=== PATIENT | female | born 1940 | race Caucasian/White ===

== ENCOUNTER 2017-08-26 20:27 | Emergency (ER) | payer OTHER ==
[2017-08-26] MEDS ORDERED: ONDANSETRON 4 MG (ODT) TAB ONE (21:12)
[2017-08-26] MEDS ORDERED: MORPHINE 4 MG/ML SYR ONE ×2 (21:12→23:13)
--- NOTE | 2017-08-26 21:30 | RAD REPORT ---
EXAM DESCRIPTION: CT - CTHCSPWOC - 08/26/2017 9:19 pm CLINICAL HISTORY: Trauma, head and neck injury. COMPARISON: 06/13/2016, 12/12/2014 TECHNIQUE: Axial 5 mm thick images of the head were obtained. Axial 2 mm thick images of the cervical spine were obtained with sagittal and coronal reconstruction images generated and reviewed. All CT scans are performed using dose optimization technique as appropriate and may include automated exposure control or mA/KV adjustment according to patient size. FINDINGS: CT HEAD WITHOUT CONTRAST: No acute hemorrhage, hydrocephalus or extra-axial collection is identified.No areas of brain edema or midline shift. The paranasal sinuses and mastoids are clear.The calvarium is intact. CT CERVICAL SPINE WITHOUT CONTRAST: No fracture or subluxation.No prevertebral soft tissues swelling is identified. IMPRESSION: No acute intracranial or cervical spine findings.
[2017-08-26 21:47] LABS: Absolute Lymphocytes (CBC) 4.4 K/uL (0.7-4.9); Absolute Monocytes 0.8 K/uL (0.1-1.3); Absolute Neutrophil 5.8 K/uL (1.8-8.0); Basophils % 0.7 % (0-1.3); Eosinophils % 1.2 % (0-4.4); Hematocrit 37.9 % (36.0-45.0); Lymphocytes % 39.6 % (15.3-44.8); MCH 31.1 pg (27.0-35.0); MCV 91.8 fL (80-100); MPV 10.2 fL (7.6-11.3); RBC Red Blood Cell Count 4.12 M/uL (3.86-4.86)
--- NOTE | 2017-08-26 22:27 | RAD REPORT ---
EXAM DESCRIPTION: RAD - Chest Single View - 08/26/2017 10:22 pm CLINICAL HISTORY: Trauma, chest pain COMPARISON: 12/12/2014 FINDINGS: Portable technique limits examination quality. The lungs are grossly clear. The heart is upper limit of normal in size. No displaced fractures.Mild upper thoracic dextroscoliosis. IMPRESSION: No acute intrathoracic process suspected.
--- NOTE | 2017-08-26 22:29 | RAD REPORT ---
EXAM DESCRIPTION: RAD - Elbow Right 3 View - 08/26/2017 10:22 pm CLINICAL HISTORY: Fall, pain COMPARISON: None. FINDINGS: Moderately angulated fracture of the proximal ulna is seen with mild comminution. Fracture of the proximal radial neck also seen with little displacement. Moderate surrounding soft tissue swe lling. No dislocation seen.
--- NOTE | 2017-08-26 22:31 | RAD REPORT ---
EXAM DESCRIPTION: RAD - Elbow Left 2 View - 08/26/2017 10:23 pm CLINICAL HISTORY: Fall, elbow pain. COMPARISON: None. FINDINGS: Posterior elbow dislocation is seen with angulated fracture of the radial neck. Moderate s urrounding soft tissue swelling.
[2017-08-26 22:36] LABS: Potassium 3.6 mEq/L (3.6-5.0)
[2017-08-26 22:39] LABS: Albumin 4.4 g/dL (3.2-5.5); Bilirubin Total 0.3 mg/dL (0.3-1.2); Protein, Total 7.4 g/dL (6.0-8.3)
--- NOTE | 2017-08-27 00:46 | ER ---
Nurse's Notes [facility] Name: Nishi Ariza Age: 76 yrs Sex: Female : 1940 Arrival Date: 08/26/2017 Time: 20:35 Bed 30 Private MD: Diagnosis: Fracture dislocation of left elbow. Fracture of radial head of right elbow. Nose laceration. Presentation: 08/26 20:30 Presenting complaint: Patient states: that she was moving bags of soil and tripped over fc the water hose. Pt has laceration to bridge of nose, abrasion to nose and chin, bruising to both knees and elbows along with swelling to right elbow. No LOC, numbness or tingling. Care prior to arrival: Bleeding of injury controlled. Mechanism of Injury: Fall from standing position. Trauma event details: Injury occurred in the [facility], Injury occurred: at home. Injury occurred: August 26, 2017 Injury occurred at: 20:00. 20:30 Acuity: OMAR 3 fc 20:30 Method Of Arrival: EMS: [facility] 20:52 Transition of care: patient was not received from another setting of care. Onset of fc symptoms was August 26, 2017 at 20:00. Initial Sepsis Screen: Does the patient meet any 2 criteria? No. Patient's initial sepsis screen is negative. Does the patient have a suspected source of infection? No. Patient's initial sepsis screen is negative. Triage Assessment: 20:30 General: Appears uncomfortable, Behavior is calm, cooperative, appropriate for age. fc Pain: Complains of pain in right arm, left arm, right leg and left leg Pain currently is 10 out of 10 on a pain scale. Quality of pain is described as aching, throbbing, Pain began 30 min ago. EENT: No deficits noted. Neuro: Level of Consciousness is awake, alert, obeys commands, Oriented to person, place, time, situation. Cardiovascular: No deficits noted. Respiratory: No deficits noted. GI: No deficits noted. : No deficits noted. Derm: Skin is pink, warm \T\ dry. Bruising that is bright red, on both elbows. Musculoskeletal: Circulation, motion, and sensation intact. Capillary refill < 3 seconds, Range of motion: intact in all extremities, Swelling present in right elbow Reports pain in right arm, left arm, right leg and left leg. Injury Description: Abrasion sustained to nose and chin is bleeding, was sustained 30-60 minutes ago. Laceration sustained to nose is clean, 0.5 to 2.5 cm long, bleeding profusely, was sustained 30-60 minutes ago. a small amount of bleeding noted at this time. A dressing was applied. 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 - Social history:: Smoking status: Patient/guardian denies using tobacco. Screenin:30 Abuse screen: Denies threats or abuse. Tuberculosis screening: No symptoms or risk fc factors identified. 20:54 Nutritional screening: No deficits noted. Fall Risk Fall in past 12 months (25 points). fc No secondary diagnosis (0 pts). No IV (0 pts). Ambulatory Aid- None/Bed Rest/Nurse Assist (0 pts). Gait- Normal/Bed Rest/Wheelchair (0 pts) Mental Status- Overestimates/Forgets Limitations (15 pts.). Total Estrada Fall Scale indicates Low Risk Score (25-44 pts). Fall prevention measures have been instituted. Side Rails Up X 2 Placed close to Nursing Station Frequent Obs/Assesments occuring Family Present and informed to notify staff if they need to leave bedside As available Patient and Family Educated on Fall Prevention Program and strategies. Assessment: 21:00 General: Appears in no apparent distress. uncomfortable, well groomed, well developed, kr2 well nourished, Behavior is calm, cooperative. Pain: Complains of pain in left elbow and right elbow Pain radiates to right arm and left arm Pain currently is 10 out of 10 on a pain scale. Quality of pain is described as aching, sharp, tender, Pain began suddenly, Is continuous, Alleviated by rest, Aggravated by repositioning, Noted to be grimacing. Neuro: Level of Consciousness is awake, alert, obeys commands, Oriented to person, place, time, situation, Campus [facility] are equal bilaterally Moves all extremities. Intact. Cardiovascular: Capillary refill < 3 seconds in bilateral fingers Patient's skin is warm and dry. Respiratory: Airway is patent Respiratory effort is even, unlabored, Respiratory pattern is regular, symmetrical. GI: Abdomen is flat, non-distended. : No signs and/or symptoms were reported regarding the genitourinary system. EENT: Nares are clear bilaterally Oral mucosa is moist. Derm: Skin is fragile, Skin is pink, warm \T\ dry. Wound noted nose and chin Wound is laceration on nose and abrasion on chin. Musculoskeletal: Circulation, motion, and sensation intact. Range of motion: limited in left elbow and right elbow. Injury Description:. 22:00 Reassessment: Patient appears in no apparent distress at this time. Patient and/or kr2 family updated on plan of care and expected duration. Pain level reassessed. Patient is alert, oriented x 3, equal unlabored respirations, skin warm/dry/pink. 22:08 Reassessment: Mica Builder from lab in room to redraw Chem labs. kr2 23:00 Reassessment: Patient appears in no apparent distress at this time. Patient and/or kr2 family updated on plan of care and expected duration. Pain level reassessed. Patient is alert, oriented x 3, equal unlabored respirations, skin warm/dry/pink. Pain decreased. 08/27 00:37 Reassessment: Patient appears in no apparent distress at this time. Patient and/or kr2 family updated on plan of care and expected duration. Pain level reassessed. Patient is alert, oriented x 3, equal unlabored respirations, skin warm/dry/pink. Patient states feeling better. Patient states symptoms have improved. 01:22 Reassessment: Patient appears in no apparent distress at this time. Patient and/or kr2 family updated on plan of care and expected duration. Pain level reassessed. Patient is alert, oriented x 3, equal unlabored respirations, skin warm/dry/pink. laceration to nose cleaned with saline, no bleeding at this time. Report called to Liss at receiving facility. Transfer form completed Patient states feeling better. Vital Signs: 08/26 20:30 BP 172 / 83; Pulse 83; Resp 18; Temp 98.1(O); Pulse Ox 99% on R/A; Weight 68.04 kg (R); fc Height 5 ft. 2 in. (157.48 cm) (R); Pain 10/10; 22:00 BP 172 / 79; Pulse 79; Resp 16; Pulse Ox 98% on R/A; kr2 23:00 BP 165 / 70; Pulse 83; Resp 15; Pulse Ox 100% on R/A; kr2 05 00:34 BP 156 / 71; Pulse 83; Resp 16; Pulse Ox 95% on R/A; kr2 01:30 BP 154 / 73; Pulse 81; Resp 15; Pulse Ox 96% on R/A; lk1 08/26 20:30 Body Mass Index 27.44 (68.04 kg, 157.48 cm) fc [place] Coma Score: 08/26 20:30 Eye Response: spontaneous(4). Verbal Response: oriented(5). Motor Response: obeys fc commands(6). Total: 15. Trauma Score (Adult): 20:30 Eye Response: spontaneous(1); Verbal Response: oriented(1); Motor Response: obeys fc commands(2); Systolic BP: > 89 mm Hg(4); Respiratory Rate: 10 to 29 per min(4); [place] Score: 15; Trauma Score: 12 ED Course: 20:30 Patient has correct armband on for positive identification. Bed in low position. Call fc light in reach. Side rails up X2. 20:30 Arm band placed on. kr2 20:30 Patient maintains SpO2 saturation greater than 95% on room air. fc 20:35 Patient arrived in ED. em1 20:35 Thermoregulation: warm blanket given to patient. fc 20:48 Kamron Mata MD is Attending Physician. ps1 20:50 Triage completed. fc 20:54 No provider procedures requiring assistance completed. fc 20:57 Nani Mcallister, CHRISTINA is Primary Nurse. kr2 21:[address] jg1 21:16 Inserted saline lock: 24 gauge in right wrist, using aseptic technique. kr2 21:19 CT Head C Spine In Process Unspecified. EDMS 21:20 CT completed. Patient tolerated procedure well. Patient moved back from CT. nj 22:14 X-ray completed. Portable x-ray completed in exam room. Patient tolerated procedure bb2 poorly. 22:17 CXR XRAY In Process Unspecified. EDMS 22:17 Elbow Right 3 View XRAY In Process Unspecified. EDMS 22:22 Elbow Left 2 View In Process Unspecified. EDMS 08/27 00:16 Sling applied to left arm. lk1 00:39 X-ray completed. Portable x-ray completed in exam room. Patient tolerated procedure kw well. 00:40 Elbow Left 3 View XRAY In Process Unspecified. EDMS 01:24 Patient transferred, IV remains in place. kr2 Administered Medications: 08/26 21:15 Drug: morphine 4 mg Route: IVP; Site: right wrist; kr2 22:16 Follow up: Response: No adverse reaction; Pain is decreased kr2 22:04 Not Given (medication unavailable): Zofran 4 mg IVP once; over 2 minutes kr2 23:15 Drug: morphine 4 mg Route: IVP; Site: right wrist; kr2 08/27 00:20 Follow up: Response: No adverse reaction; Pain is decreased kr2 08/26 23:15 Drug: Zofran 4 mg Route: IVP; Site: right wrist; kr2 08/27 00:20 Follow up: Response: No adverse reaction kr2 Outcome: 00:46 ER care complete, transfer ordered by . ps1 01:23 Transferred to [facility], Transfer form completed. kr2 01:23 Condition: stable 01:23 Instructed on the need for transfer, Demonstrated understanding of instructions. 01:53 Patient left the ED. lk1 Signatures: Dispatcher [employer] Merced Martinez Felicia, RN RN fc Martinez, Eric em1 Adeline Villanueva Leah RN RN lk1 Silvino Alvarez Karey, RN RN kr2 Kamron Mata MD MD ps1 Jyothi Arreola2 Corrections: (The following items were deleted from the chart) 08/26 22:21 22:17 In radiology for Elbow Left 3 View+RAD.RAD.BRZ. EDMS EDMS
--- NOTE | 2017-08-27 00:47 | EDPHYS ---
Physician Documentation [facility] Name: Nishi Ariza Age: 76 yrs Sex: Female : 1940 Arrival Date: 08/26/2017 Time: 20:35 Bed 30 Private MD: ED Physician Kamron Mata HPI: 08/27 00:30 This 76 yrs old Female presents to ER via EMS with complaints of Fall Injury. ps1 00:30 Details of fall: The patient fell from an upright position, over a hose. Onset: The ps1 symptoms/episode began/occurred just prior to arrival. Associated injuries: The patient sustained both elbows, deformity/subluxation of left. Nasal bone laceration. Knee contusion. . No LOC. Not on thinners. Hx of aneurysm, treated at [facility]. . Historical: - Allergies: 08/26 20:54 BARBITURATES; fc 20:54 Codeine; fc 20:54 Iodinated Contrast Media - IV Dye; fc - Home Meds: 20:54 Vitamin B-12 Oral [Active]; Vitamin D Oral [Active]; fc - PMHx: 20:54 Colitis; hematoma on brain; fc - PSHx: 20:54 Brain surgery; Hysterectomy; Cholecystectomy; right wrist surg; fc - Immunization history: Last tetanus immunization: unknown. - Social history:: Smoking status: Patient/guardian denies using tobacco. ROS: 08/27 00:30 Constitutional: Negative for fever, chills, and weight loss, Eyes: Negative for injury, ps1 pain, redness, and discharge. Cardiovascular: Negative for chest pain, palpitations, and edema, Respiratory: Negative for shortness of breath, cough, wheezing, and pleuritic chest pain, Abdomen/GI: Negative for abdominal pain, nausea, vomiting, diarrhea, and constipation, Back: Negative for injury and pain, : Negative for injury, bleeding, discharge, and swelling. Neuro: Negative for headache, weakness, numbness, tingling, and seizure, Psych: Negative for depression, anxiety, suicide ideation, homicidal ideation, and hallucinations. ENT: Positive for laceration to nose. MS/extremity: Positive for injury or acute deformity, contusion, ecchymosis, pain, tenderness, of the left elbow, and right elbow. Exam: 00:30 Constitutional: This is a well developed, well nourished patient who is awake, alert, ps1 and in no acute distress. Eyes: Pupils equal round and reactive to light, extra-ocular motions intact. Lids and lashes normal. Conjunctiva and sclera are non-icteric and not injected. Chest/axilla: Normal chest wall appearance and motion. Nontender with no deformity. No lesions are appreciated. Cardiovascular: Regular rate and rhythm. No gallops, murmurs, or rubs. Normal PMI, no JVD. No pulse deficits. Respiratory: Lungs have equal breath sounds bilaterally, clear to auscultation and percussion. No rales, rhonchi or wheezes noted. No increased work of breathing, no retractions or nasal flaring. 00:30 Abdomen/GI: Soft, non-tender, with normal bowel sounds. No distension or tympany. No guarding or rebound. No evidence of tenderness throughout. 00:30 MS/ Extremity: Pulses equal, no cyanosis. Neurovascular intact. Full, normal range of motion. Neuro: Awake and alert, GCS 15, oriented to person, place, time, and situation. Cranial nerves II-XII grossly intact. Sensory grossly intact. 00:30 Head/face: Noted is a laceration(s), that is superficial, 2 cm(s), of the nose. 00:30 Musculoskeletal/extremity: Extremities: grossly normal except: noted in the left elbow: deformity, pain, noted in the right elbow: decreased ROM, deformity, noted in the left leg: contusion, Noted in left leg: contusion, ROM: limited active range of motion due to pain, in the right elbow and left elbow, Circulation is intact in all extremities. Pulses: are normal with no appreciated deficits, Weight bearing: able to fully bear weight, Tendon exam: specific tendon testing normal through active and passive range of motion Vital Signs: 08/26 20:30 BP 172 / 83; Pulse 83; Resp 18; Temp 98.1(O); Pulse Ox 99% on R/A; Weight 68.04 kg (R); fc Height 5 ft. 2 in. (157.48 cm) (R); Pain 10/10; 22:00 BP 172 / 79; Pulse 79; Resp 16; Pulse Ox 98% on R/A; kr2 23:00 BP 165 / 70; Pulse 83; Resp 15; Pulse Ox 100% on R/A; kr2 08/27 00:34 BP 156 / 71; Pulse 83; Resp 16; Pulse Ox 95% on R/A; kr2 01:30 BP 154 / 73; Pulse 81; Resp 15; Pulse Ox 96% on R/A; lk1 08/26 20:30 Body Mass Index 27.44 (68.04 kg, 157.48 cm) fc [place] Coma Score: 08/26 20:30 Eye Response: spontaneous(4). Verbal Response: oriented(5). Motor Response: obeys fc commands(6). Total: 15. Trauma Score (Adult): 20:30 Eye Response: spontaneous(1); Verbal Response: oriented(1); Motor Response: obeys fc commands(2); Systolic BP: > 89 mm Hg(4); Respiratory Rate: 10 to 29 per min(4); Sg Score: 15; Trauma Score: 12 Procedures: 08/27 00:30 Reduction: of the left elbow, using traction, Immobilized with shoulder immobilizer. ps1 Patient tolerated well. Post reduction film - reveals improved alignment. MDM: 08/26 20:59 Patient medically screened. ps1 08/27 00:30 Data reviewed: vital signs, nurses notes, radiologic studies, plain films. Special ps1 discussion: patient with multiple fractures to bilateral arms. Reduction of posterior dislocation. Will transfer to [facility] for orthopedic evaluation. . 08/26 20:55 Order name: CBC with Diff; Complete Time: 23:11 ps1 08/26 20:55 Order name: CMP; Complete Time: 23:11 [facility] 08/26 20:55 Order name: CT Head C Spine; Complete Time: 23:11 [facility] 08/26 20:55 Order name: CXR XRAY; Complete Time: 23:11 ps1 08/26 20:55 Order name: Elbow Right 3 View XRAY; Complete Time: 23:11 ps1 08/26 22:21 Order name: Elbow Left 2 View; Complete Time: 23:11 [facility] 08/27 00:11 Order name: Elbow Left 3 View XRAY ps1 Administered Medications: 08/26 21:15 Drug: morphine 4 mg Route: IVP; Site: right wrist; kr2 22:16 Follow up: Response: No adverse reaction; Pain is decreased kr2 22:04 Not Given (medication unavailable): Zofran 4 mg IVP once; over 2 minutes kr2 23:15 Drug: morphine 4 mg Route: IVP; Site: right wrist; kr2 08/27 00:20 Follow up: Response: No adverse reaction; Pain is decreased kr2 08/26 23:15 Drug: Zofran 4 mg Route: IVP; Site: right wrist; kr2 08/27 00:20 Follow up: Response: No adverse reaction kr2 Disposition: 08/27/17 00:46 Transfer ordered to [facility]. Diagnosis is Fracture dislocation of left elbow. Fracture of radial head of right elbow. Nose laceration. . - Reason for transfer: Higher level of care. - Accepting physician is [facility]- Trauma. - Condition is Stable. - Problem is new. - Symptoms have improved. Signatures: Dispatcher [employer] EDMS Mj De Paz MD MD cha Chretien, Felicia RN RN fc Ana Lilia Brown RN RN lk1 Nani Mcallister RN RN kr2 Kamron Mata MD MD ps1 Corrections: (The following items were deleted from the chart) 08/26 22:21 20:55 Elbow Left 3 View+RAD.RAD.BRZ ordered. EDMS EDMS
--- NOTE | 2017-08-27 08:22 | RAD REPORT ---
EXAM DESCRIPTION: RAD - Elbow Left 3 View - 08/27/2017 12:56 am CLINICAL HISTORY: Post reduction COMPARISON: Prereduction radiograph FINDINGS: Posterior elbow dislocation has been reduced. Fracture of the radial head and radial neck with angulation again seen. Moderate soft tissue swelling is present.
== END 2017-08-27 01:53 | disposition short-term general hospital (02) ==
LOC: ER 20:27
PROC: 0RSMXZZ Reposition Left Elbow Joint, External Approach (ICD-10-PCS; principal; 2017-08-26)
DX: S42.402A Unspecified fracture of lower end of left humerus, initial encounter for closed fracture (principal); S52.121A Displaced fracture of head of right radius, initial encounter for closed fracture; W18.09XA Striking against other object with subsequent fall, initial encounter; Y93.9 Activity, unspecified; Y92.9 Unspecified place or not applicable; Z88.5 Allergy status to narcotic agent; Z91.041 Radiographic dye allergy status
CPT/HCPCS: 36415; 70450; 71045; 72125; 80053; 85025; 96374; 96375; 99285

== ENCOUNTER 2020-03-08 10:07 | Emergency (ER) | payer OTHER ==
--- OUTSIDE RECORDS SUMMARY | 2020-03-08 10:35 | XMS REPORT | Clinical Summary ---
:1940 Author Organization [facility] Address [address] [place] [address] Care Team Providers Name Role Phone Mehnaz Mason DO Primary Care Provider Allergies Active Allergy Reactions Severity Noted Date Comments Barbital Unknown Reaction 12/06/2016 Codeine GI Intolerance 12/29/2018 Dye Rash Low 07/01/2019 IV constrast dy e Medications Medication Sig Dispensed Refills Start Date End Date Status cholecalciferol, Take 1 capsule by 0 Active vitamin D3, 50 mcg mouth. (2,000 unit) capsule capsule diphenhydrAMINE-acetam Take 1 tablet by 0 Active inophen (TYLENOL PM mouth nightly as EXTRA STRENGTH) 25-500 needed for sleep. mg tablet Active Problems Problem Noted Date Pseudophakia, left eye 11/08/2019 Overview: 11/08/19 Phaco iol os pcboo +26.5 d monovision PCO - s/p CAPSULOTOMY Pseudophakia, right eye 09/27/2019 Overview: Phaco iol od 09/27/19 PCBOO +24 d DEXTENZA IMPLANT, R LOWER CANALICULUS 20/20 Resolved Problems Problem Noted Date Resolved Date Nuclear sclerotic cataract, left 09/28/2019 020 Combined forms of age-related cataract, left eye 11/09/2019 Encounters Date Type Specialty Care Team Description 02/09/2020 Procedure visit Ophthalmology Emma Bae Posterior capsular opacification, left (Primary Dx); MD Michelle Pseudophakia, r ight eye; Pseudophakia, l eft eye 02/09/2020 Travel 12/29/2019 Procedure visit Ophthalmology Emma Bae Pseudophak ia, left eye (Primary Dx); MD Michelle Pseudophakia, r ight eye 12/29/2019 Travel 11/24/2019 Office Visit Ophthalmology Emma Bae Pseudophakia, right eye (Primary Dx); MD Michelle Pseudophakia, l eft eye 11/24/2019 Travel 11/10/2019 Telephone Ophthalmology [facility] 11/09/2019 Office Visit Ophthalmology Emma Bae Pseudophakia, left eye (Primary Dx); MD Michelle Pseudophakia, r ight eye 11/08/2019 Anesthesia Event Plastic Surgery Micah Guzman MD 11/08/2019 Surgery Plastic Surgery Emma Bae PHACOEMULSI FICATION WITH MD Michelle INTRAOCULAR LISA S IMPLANT, LEFT EYE 11/08/2019 Hospital Encounter Plastic Emma Ang MD 11/08/2019 Telephone Ophthalmology Emma Bae MD 11/08/2019 Travel 10/28/2019 Office Visit Ophthalmology Emma Bae Pseudophakia, right eye (Primary Dx); MD Michelle Nuclear sclerot ic cataract, left 10/28/2019 Travel 10/27/2019 Telephone Ophthalmology Emma Bae MD 10/13/2019 Telemedicine Ophthalmology Emma Bae Pseudophakia, right eye MD Michelle (Primary Dx) 10/04/2019 Telephone Ophthalmology Soraya Pimentel MA 09/29/2019 Telephone Ophthalmology Soraya Pimentel MA 09/28/2019 Office Visit Ophthalmology Emma Bae Pseudophakia, right eye (Primary Dx); MD Michelle Nuclear sclerot ic cataract, left 09/27/2019 Anesthesia Event Plastic Surgery Micah Guzman MD 09/27/2019 Surgery Plastic Surgery Emma Bae PHACOEMULSI VILMAATION, MD Michelle CATARACT, WITH INTRAOCULAR LISA S IMPLANTATION, R IGHT EYE 09/27/2019 Hospital Encounter Plastic Emma Ang MD 09/27/2019 Travel 09/15/2019 Office Visit Ophthalmology Emma Bae 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 (Primary Dx); MD Michelle 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 09/15/2019 Travel 09/06/2019 Hospital Encounter Plastic Surgery Emma Bae MD 08/02/2019 Travel 08/02/2019 Telephone Ophthalmology Emma Bae MD 07/05/2019 Telephone Ophthalmology Emma Bae MD 07/05/2019 Travel 07/01/2019 Office Visit Ophthalmology Emma Bae scler otic MD Michelle cataract, bilat eral (Primary Dx) after 03/08/2019 Surgical History Surgery Date Site/Laterality Comments BRAIN SURGERY FEMUR FRACTURE SURGERY CHOLECYSTECTOMY HYSTERECTOMY PHACOEMULSIFICATION, 09/27/2019 Eye/Right Procedure: PHACOEMULSIFICATION, CATARACT, WITH IOL CATARACT, WIT H INTRAOCULAR LENS IMPLANTATION IMPLANTATION, RI GHT EYE; Surgeon: Emma Bae MD; L ocation: [facility] OR; Serv ice: Ophthalmology; Laterality: Right; Medical devices from this surgery are in t he Implants section. PHACOEMULSIFICATION, 11/08/2019 Eye/Left Procedure: PHACOEMULSIFICATION CATARACT, WITH IOL WITH INTRAOCU LAR LENS IMPLANT, IMPLANTATION LEFT EYE; Surge on: Emma Bae MD; Location: [facility] OR; Serv ice: Ophthalmology; Laterality: Left; Medical devices from this surgery are in t he Implants section. Medical History Medical History Date Comments Cataract Combined forms of age-related cataract, left eye Social History Tobacco Use Types Packs/Day Years Used Date Passive Smoke Exposure - Never Smoker Smokeless Tobacco: Never Used Comments: late was a smoker Alcohol Use Drinks/Week oz/Week Comments Not Currently Sex Assigned at Date Recorded Not on file COVID-19 Exposure Response Date Recorded In the last month, have you been in contact with No / Unsure 02/09/2020 10:38 AM CDT someone who was confirmed or suspected to have Coronavirus / COVID-19? Last Filed Vital Signs Vital Sign Reading Time Taken Comments Blood Pressure 149/70 11/08/2019 10:45 AM CDT Pulse 86 11/08/2019 10:45 AM CDT Temperature 36.3 C (97.4 F) 11/08/2019 10:45 AM CDT Respiratory Rate 15 11/08/2019 10:45 AM CDT Oxygen Saturation 96% 11/08/2019 10:45 AM CDT Inhaled Oxygen Concentration - - Weight 66.7 kg (147 lb) 11/08/2019 6:42 AM CDT Height 157.5 cm (5' 2") 11/08/2019 6:42 AM CDT Body Mass Index 26.89 11/08/2019 6:42 AM CDT Plan of Treatment Health Maintenance Due Date Last Done Comments SHINGLES VACCINES (#1) 1990 65+ PNEUMOCOCCAL VACCINE (1 of 1 - PPSV23) 2005 INFLUENZA VACCINE 11/27/2019 Implants Implanted Type Area Stain Dipper Device Shelf Model / Identifier Expiration Serial / Lot Date Lens Iol Tecnis Monofocal Preloaded 1 Pi deven Pcb 24.0d - [id number] - [id number] Intraocular Right: [employer] 06/09/2022 [id number] / Implanted: Qty: 1 on 09/27/2019 by Emma Bae MD at [facility] Lens Implant [employer] [id number] / [id number] Lens Iol Tecnis Monofocal Preloaded 1 Pi deven Pcb 26.5d - [id number] - [id number] Intraocular Left: [employer] 02/24/2022 [id number] / Implanted: Qty: 1 on 11/08/2019 by Emma Bae MD at [facility] Lens Implant [employer] [id number] / [id number] Procedures Procedure Name Priority Date/Time Associated Comments Diagnosis YAG CAPSULOTOMY - OS Routine 02/09/2020 12:31 Posterior capsul ar Results for this - LEFT EYE PM CDT opacification, left procedur e are in the results section. PHACOEMULSIFICATION, 11/08/2019 9:17 Combined forms o f CATARACT, WITH IOL AM CDT age-related IMPLANTATION cataract, left eye Case Notes REG LENS Special Needs REG LENS PHACOEMULSIFICATION, CATARACT, 09/27/2019 7:35 AM CDT Combined forms of WITH IOL IMPLANTATION age-related catarac t, right eye Case Notes REG LENS Special Needs REG LENS CORNEAL TOPOGRAPHY - Routine 09/15/2019 12:27 PM Combined form s of Results for this OU - BOTH EYES CDT age-related cataract proce dure are in of both eyes the results Dry eye syndrome of section. both eyes IOL BIOMETRY - OU - Routine 09/15/2019 12:27 PM Combined forms of Results for this BOTH EYES CDT age-related cataract procedu re are in of both eyes the results section. after 03/08/2019 Results Yag Capsulotomy - OS - Left Eye (02/09/2020 12:31 PM CDT) Specimen Narrative Performed At This result has an attachment that is no t available. Time Out Confirmed correct patient, procedure, site, and patien t consented. Anesthesia Topical anesthesia was used. Anesthesia medications in cluded Tropicamide 1%, Proparacaine, Phenylephrine HCL 2.5%. Laser Information The type of laser was yag. Total spots was 33. The james rgy was 1.4 mj. Total energy was 44 mj. Post-op The patient tolerated the procedure well. There were n o complications. The patient received written and verbal post procedure car e education. Corneal Topography, Galilei - OU (09/15/2019 12:27 PM CDT) Pathologist Sig nature zzAstigmatism (OD) 0.46x 42 Specimen Narrative Performed At This result has an attachment that is no t available. Right Eye Findings include normal observations. Astigmatism is 0 .46x 42. Left Eye Findings include normal observations. Notes Cornea cleared with lubrication IOL Master - OU - Both Eyes (09/15/2019 12:27 PM CDT) Pathologist Sig nature Axial Length-OD 22.87 Axial Length-OS 22.82 Anterior Chamber Depth-OD 2.80 Anterior Chamber Depth-OS 2.89 White to White-OD 11.8 White to White-OS 11.8 Specimen Narrative Performed At This result has an attachment that is no t available. Right Eye Lens style: PCBOO . Lens power: +24.0 D . Target ref raction: -0.22 D. Axial length was 22.87. White to white was 11.8. AC De pth was 2.80. Left Eye Lens style: PCBOO. Lens power: +24.50 CYL MINIMAL. Tar get refraction: -0.36 D. Axial length was 22.82. White to white was 11 .8. AC Depth was 2.89. Notes RIOL CALCULATION ORDER SHEET RIGHT EYE DOMINANT GALILEI: OD +0.4 X37 IOL M +0.87X 177 GAL: OS +0.35 X68 IOL M +0.57 X 24 DATE OF TESTIN09/15/19 DATE OF SURGERY: OD OS RK PRK LASIK SILICONE OIL SCLERAL BUCKLE PKP CONTACT LENSES: DATE LAST WORN: TYPE: RGP: SOFT: DOMINANT EYE: TARGET REFRACTION: OD OS TESTING RESULTS: OD OS K1 K2 AXIS TOTAL CYL K1 K2 AXIS TOTAL CYL AUTO K IOLMASTER ATLAS GALILEI SimK GALILEI TCP AXIAL LENGTH (in mm) OD OS IOL MASTER 22.87 22.82 SONOMED/ACCUTOME IMMERSION Dr Abiola SWANN FINAL IOL LENS CHOICE: OD OS BACKUP LENS : OD OS after 03/08/2019 Insurance Payer Benefit Plan / Subscriber ID Effective Phone Address T ype Group Dates MEDICARE MEDICARE PART A [id number] 2005-Pres [place], [place] Medicare AND B ent PHYSICIANS PHYSICIANS [id number] 2018-Pres [facility] ent Advance Directives For more information, please contact: [phone] Type Date Recorded Patient Analytical Lab Analyst Explanati on Advance Directives, Living Will 09/27/2019 5:54 AM and Medical Power of Telecine Operator
--- OUTSIDE RECORDS SUMMARY | 2020-03-08 10:36 | XMS REPORT | Continuity of Care Document ---
:1940 Author Organization [employer] Care Team Providers Name Role Phone [employer] Unavailable Un available Problems Problem Status Onset Classification Date Comments Sourc e Date Reported SUBDURAL Active Condition 12/29/2014 [facility] HEMATOMA 5 Neuro AP Active [place] [address] [facility] MARY CARMEN Active [facility] BILLIGN 5 Medical Center ACUTE ON Active [facility] CHRONIC SDH 5 Medical WITH MIDLINE Center SHIFT SUBDURAL Active [facility] Center Medications Medication Details Route Status Patient Ordering Order Source Instructions Provider Date B-12 CAPS Active 2014 Neuro senna 8.6 mg 8.6 mg = 1 tab, Active [place] oral tablet PO, Bedtime, 2015 Medical PRN Center Constipation, 0 Refill(s) Levetiracetam 500 mg = 1 tab, Active [place] 500 MG Oral PO, Q12H, # 8 2015 Medica l Tablet tab, 0 Center Refill(s) Docusate Sodium 50 mg = 1 cap, Active H [place] 50 MG Oral PO, Daily, # 7 2015 Medica l Capsule cap, 0 Center Refill(s) Acetaminophen 650 mg = 2 tab, Inactive 12/15/ M H [place] 325 MG Oral PO, QID, # 14 2015 Medica l Tablet tab, 0 Center [Tylenol] Refill(s) Acetaminophen Notes: Do not No Longer [place] exceed 4 Active 2015 Medical gm/day. (Same Center as: Tylenol) heparin Notes: porcine [place] Longer [place] heparin Active 2014 [facility] Neutra-Phos Notes: (Same [place] as: Active 2014 Medical Neutra-Phos) Center Each 1.25 gm pkt has 250mg phosphorous. Mix w/2.5oz water and stir. Docusate Notes: (Same No Longer [place] as: Colace) (Do Active 2014 Medical Not Crush) Center Acetaminophen Notes: Max [place] acetaminophen = Active 2014 Medical 4000 mg/day (4 Center gm/day). (Same as: Tylenol) Oxycodone Notes: (Same [place] Longer [place] Hydrochloride 5 as: Roxicodone) Active 2014 Medical MG Oral Tablet Center calcium 3,000 mg, 30 Inactive [place] gluconate + mL, Route: 2014 Medical Sodium Chloride IVPB, ONCE, Cent er 0.9% IV 100 mL Start date: 12/13/14 6:00:00, Stop date: 12/13/14 6:00:00 potassium Notes: (Same Inactive [place] phosphate + as: K 2014 Medical Sodium Chloride Phosphate.) 1 C enter 0.9% IV 250 mL mMol phoshate has 1.47 mEq potassium Infuse over 4 hours magnesium 2 gm, 50 mL, Inactive [place] sulfate Route: IVPB, 2014 Medical Drug form: INJ, Center Q2H, Start date: 12/13/14 6:00:00, Duration: 2 doses or times, Stop date: 12/13/14 8:00:00 Saline Flush Notes: (Same No Longer [place] 0.9% as: BD Active 2014 Medical Posiflush) Center Docusate Notes: (Same Inactive [place] as: Colace) 2015 Medical Center sennosides, NURSING HOME Notes: (Same Inactive [place] as: Senokot) 2014 Medical [place] Levetiracetam Notes: (Same No Longer [place] as:Keppra) Active 2014 Medical Center Zofran Notes: (Same No Longer [place] as: Zofran) Active 2014 Medical Center senna 8.6 mg Notes: (Same No Longer [place] oral tablet as: Senokot) Active 2014 Medical Center NS 1,000 mL 1,000 mL, Rate: No Longer [place] 75 ml/hr, Active 2014 Medical Infuse over: Center 13.3 hr, Route: IV, Dosing Weight 70.455 kg, Total Volume: 1,000, Start date: 12/12/14 16:46:00, Duration: 30 day, Stop date: 01/11/15 16:45:00 Acetaminophen Notes: (Same No Longer [place] 325 MG / as: Adrian Active 2014 Medical Hydrocodone 325/10) Center Bitartrate 10 MG Oral Tablet Naloxone Notes: Same as No Longer [place] Narcan Active 2014 Medical Center Ondansetron Notes: (Same [place] as: Zofran) Active 2014 Medical MEDICATION Center WASTE Product Size: 4 mg Product Wasted: __0_ mg Hydromorphone Notes: Same as: No Longer [place] Dilaudid Active 2014 Medical Center Flumazenil Notes: (Same No Longer [place] as: Romazicon) Active 2014 Medical Center Cefazolin Notes: (Same [place] Longer [place] As: Ancef, Active 2014 Medical Kefzol) Center MEDICATION WASTE Product Size: 1000 mg Product Wasted: ___ mg Dextrose 50% 25 gm, 50 mL, No Longer [place] Syringe Route: IVP, Active 2014 Medical Drug Form: INJ, [place] Dosing Weight 70.455, kg, PRN, PRN Abnormal Lab Result, Start date: 12/12/14 14:52:00, Duration: 30 day, Stop date: 01/11/15 14:51:00 Regular 60 units) No Longer [place] Insulin, Human Stable for 28 Active 2014 Med ical 100 UNT/ML days at room Center Injectable temperature Solution Expires in days from D ate Saline Flush Notes: (Same No Longer [place] 0.9% as: BD Active 2014 Medical Posiflush) Center Ondansetron Notes: (Same [place] as: Zofran) Active 2014 Medical MEDICATION Center WASTE Product Size: 4 mg Product Wasted: _0__ mg Acetaminophen Notes: (Same No Longer [place] 325 MG / as: Adrian Active 2014 Medical Hydrocodone 325/10) Center Bitartrate 10 MG Oral Tablet ceFAZolin Route: IVP, Inactive [place] (SCIP) ONCE, Dosing 2014 Medical Weight 70.455, Center kg, Start date: 12/12/14 13:32:00, Stop date: 12/12/14 13:32:00 Cardene 40 mg Notes: Same as: No Longer [place] in NS 200 ml IV Cardene Active 2014 Medical 40 mg Concentration: [place] (0.2 mg /1 ml ) Aspirin 81 MG Notes: Do not Inactive [place] Enteric Coated crush or chew. 2014 Me dical Tablet (Same As: [place] Ecotrin) Allergies, Adverse Reactions, Alerts Substance Category Reaction Severity Reaction Status Date Comments S ource type Reported barbiturates Assertion Drug Active M H [place] allergy [facility] Immunizations No Data Provided for This Section Results Order Name Results Value Reference Date Interpretation Comments Huong rce Range CHEM PANEL Phosphorus 2.8 2.5 - 4.5 12/15 [facility] CHEM PANEL Magnesium Lvl 1.9 1.8 - 2.4 12/15 [place] [facility] CHEM PANEL Glucose Lvl 94 70 - 99 12/15 [facility] CHEM PANEL BUN 13 7 - 22 12/15 [facility] CHEM PANEL eGFR 86 12/15 Result Comment: The Medical eGFR is Center calculated using the CKD-EPI formula. In most young, healthy individuals the eGFR will be >90 mL/min/1.73m2 . The eGFR declines with age. An eGFR of 60-89 may be normal in some populations, particularly the elderly, for whom the CKD-EPI formula has not been extensively validated. Use of the eGFR is not recommended in the following populations:< br/>
Carmen viduals with unstable creatinine concentration s, including patients and those with serious co-morbid conditions.<b r/>
Patie nts with extremes in muscle mass or diet.

The data above are obtained from the National Kidney Disease Education Program (NKDEP) which additionally recommends that when the eGFR is used in patients with extremes of body mass index for purposes of drug dosing, the eGFR should be multiplied by the estimated BMI. CHEM PANEL Creatinine 0.7 0.5 - 1.4 12/15 [facility] /2014 [facility] CHEM PANEL Potassium Lvl 3.5 3.5 - 5.1 12/15 [facility] CHEM PANEL CO2 27 24 - 32 12/15 [facility] CHEM PANEL Chloride Lvl 107 95 - 109 12/15 [facility] CHEM PANEL Sodium Lvl 143 135 - 145 12/15 [facility] CHEM PANEL Calcium Lvl 8.8 8.5 - 10.5 12/15 [facility] CHEM PANEL AGAP 12.5 10.0 - 12/15 20.0 [facility] HEMATOLOGY Lymphocytes 38.6 20.0 - 08 [place] 40.0 [facility] HEMATOLOGY Monocytes 8.1 2.0 - 12.0 12/15 [facility] HEMATOLOGY Lymphocytes # 4.6 1.0 - 5.5 12/15 [facility] HEMATOLOGY Segs 51.2 45.0 - 12/15 [place] 75.0 [facility] HEMATOLOGY Basophils # 0.1 0.0 - 0.2 12/15 [facility] HEMATOLOGY Eosinophils # 0.1 0.0 - 0.5 12/15 [facility] HEMATOLOGY Plt Morph Normal 12/15 (12/15/14 4:06 AM) [facility] HEMATOLOGY RBC Morph Normal 12/15 [facility] (12/15/14 4:06 AM) [facility] HEMATOLOGY Eosinophils 1.1 0.0 - 4.0 12/15 [facility] HEMATOLOGY Segs-Bands # 6.1 1.5 - 8.1 12/15 [facility] HEMATOLOGY Monocytes # 1.0 0.0 - 0.8 12/15 [facility] HEMATOLOGY Basophils 1.0 0.0 - 1.0 12/15 [facility] HEMATOLOGY PT 13.8 12.0 - 12/15 [place] 14.7 [facility] HEMATOLOGY PTT 38.3 22.9 - 12/15 [place] 35.8 [facility] HEMATOLOGY INR 1.06 0.85 - 12/15 [place] 1.17 Medical [place] HEMATOLOGY MCH 29.9 27.0 - 12/15 [place] 31.0 Medical [place] HEMATOLOGY MCHC 32.3 32.0 - 12/15 [place] 36.0 /2014 [facility] HEMATOLOGY RDW 14.1 11.5 - 12/15 [facility] 14.5 [facility] HEMATOLOGY Hgb 11.8 12.0 - 12/15 [place] 16.0 [facility] HEMATOLOGY Hct 36.3 36.0 - 12/15 [place] 48.0 /2014 [facility] HEMATOLOGY MCV 92.6 80.0 - 12/15 [place] 98.0 /2014 [facility] HEMATOLOGY WBC 12.0 3.7 - 10.4 12/15 [facility] HEMATOLOGY RBC 3.93 4.20 - 12/15 [place] 5.40 /2014 [facility] HEMATOLOGY MPV 11.5 7.4 - 10.4 12/15 [facility] HEMATOLOGY Platelet 100 133 - 450 12/15 [facility] PARATHYROID Ca Ion WB 1.18 1.05 - 12/15 [facility] PROFILE 1. [facility] PARATHYROID Ca Norm WB 1.15 1.05 - 12/15 [facility] PROFILE . [facility] CHEM PANEL Phosphorus 3.3 2.5 - 4.5 12/14 [facility] CHEM PANEL Magnesium Lvl 2.3 1.8 - 2.4 12/14 [place] [facility] ELECTROLYTE AGAP 12.0 10.0 - 12/14 [facility] S 20.0 [facility] ELECTROLYTE eGFR 73 12/14 [facility] Comment: The Medical eGFR is Center calculated using the CKD-EPI formula. In most young, healthy individuals the eGFR will be >90 mL/min/1.73m2 . The eGFR declines with age. An eGFR of 60-89 may be normal in some populations, particularly the elderly, for whom the CKD-EPI formula has not been extensively validated. Use of the eGFR is not recommended in the following populations:< br/>
Carmen viduals with unstable creatinine concentration s, including patients and those with serious co-morbid conditions.<b r/>
Patie nts with extremes in muscle mass or diet.

The data above are obtained from the National Kidney Disease Education Program (NKDEP) which additionally recommends that when the eGFR is used in patients with extremes of body mass index for purposes of drug dosing, the eGFR should be multiplied by the estimated BMI. ELECTROLYTE Chloride Lvl 106 95 - 109 12/14 [place] S /2014 Medical Center ELECTROLYTE Potassium Lvl 4.0 3.5 - 5.1 12/14 [place] [facility] Center ELECTROLYTE Calcium Lvl 9.4 8.5 - 10.5 12/14 [place] /2014 [facility] Center ELECTROLYTE CO2 25 24 - 32 12/14 S /2014 [facility] Center ELECTROLYTE Sodium Lvl 139 135 - 145 12/14 [place] /2014 [facility] Center ELECTROLYTE Glucose Lvl 107 70 - 99 12/14 S /2014 [facility] Center ELECTROLYTE BUN 17 7 - 22 12/14 [place] S /2014 [facility] Center ELECTROLYTE Creatinine 0.8 0.5 - 1.4 12/14 [place] /2014 Medical [place] HEMATOLOGY MCHC 32.6 32.0 - 12/14 [place] 36.0 Medical [place] HEMATOLOGY MCH 30.3 27.0 - 12/14 [place] 31.0 Medical [place] HEMATOLOGY RDW 14.2 11.5 - 12/14 [place] 14.5 Medical [place] HEMATOLOGY Platelet 120 133 - 450 12/14 [facility] HEMATOLOGY MPV 10.9 7.4 - 10.4 12/14 /2014 [facility] HEMATOLOGY Hgb 11.2 12.0 - 12/14 [place] 16.0 /2014 Medical Center HEMATOLOGY RBC 3.71 4.20 - 12/14 [place] 5.40 /2014 Medical [place] HEMATOLOGY WBC 14.3 3.7 - 10.4 12/14 [facility] HEMATOLOGY Hct 34.5 36.0 - 12/14 [place] 48.0 /2014 Medical Center HEMATOLOGY MCV 93.0 80.0 - 12/14 [place] 98.0 /2014 Medical Center HEMATOLOGY INR 1.10 0.85 - 12/14 [place] 1.17 /2014 Medical Center HEMATOLOGY PTT 25.9 22.9 - 12/14 [place] 35.8 /2014 Medical Center HEMATOLOGY PT 14.3 12.0 - 12/14 [place] 14.7 [facility] HEMATOLOGY Lymphocytes 13.6 20.0 - 12/14 [place] 40.0 /2014 [facility] HEMATOLOGY Basophils 0.3 0.0 - 1.0 12/14 /2014 [facility] HEMATOLOGY Monocytes 5.6 2.0 - 12.0 12/14 /2014 [facility] HEMATOLOGY Monocytes # 0.8 0.0 - 0.8 12/14 [place] /2014 [facility] HEMATOLOGY Segs-Bands # 11.5 1.5 - 8.1 12/14 [place] /2014 [facility] HEMATOLOGY Lymphocytes # 2.0 1.0 - 5.5 12/14 [place] /2014 [facility] HEMATOLOGY Segs 80.5 45.0 - 12/14 [facility] 75.0 [facility] PARATHYROID Ca Ion WB 1.14 1.05 - 12/14 [place] PROFILE 1. [facility] PARATHYROID Ca Norm WB 1.14 1.05 - 12/14 [facility] PROFILE 1. [facility] BACTERIAL - MRSA by PCR Negative 12/13 [facility] SEROLOGY (12/13/14 11:29 AM) /2014 [facility] URINE AND UA <=1.0 0.1 - 1.0 12/13 [place] [facility] Urobilinogen mg/dL /2014 [facility] URINE AND UA Ketones TR 12/13 [place] [facility] URINE AND UA Turbidity Clear Clear 12/13 [facility] STOOL (12/13/14 11:29 AM) /2014 [facility] URINE AND UA Spec Grav 1.011 <=1.030 12/13 [place] [facility] /2014 [facility] URINE AND UA pH 6.0 5.0 - 8.0 12/13 [place] [facility] URINE AND UA Protein Negative Negative 12/13 [place] [facility] mg/dL mg/dL [facility] URINE AND UA Glucose Negative Negative 12/13 [place] [facility] mg/dL mg/dL [address] [place] [address] URINE AND UA Blood Large Negative 12/13 [facility] STOOL *ABN* /2014 Medical (12/13/14 11:29 AM) Cente r URINE AND UA Nitrite Negative Negative 12/13 [facility] STOOL (12/13/14 11:29 AM) /2014 [facility] URINE AND UA Leuk Est Negative Negative 12/13 [place] [facility] (12/13/14 11:29 AM) /2014 [facility] URINE AND UA Sq Epi Occasional Few /LPF 12/13 [facility] STOOL /LPF [facility] URINE AND UA Bili Negative Negative 12/13 [facility] STOOL *NA* /2014 [facility] (12/13/14 11:29 AM) Cente r URINE AND UA Mucus Few /LPF None Seen 12/13 [facility] STOOL /LPF /2014 [facility] URINE AND UA Amorph Occasional None Seen 12/13 [place] [facility] STOOL Prachi /HPF /HPF [facility] URINE AND UA WBC 6 0 - 5 12/13 [place] [facility] URINE AND UA RBC 52 0 - 2 12/13 [place] [facility] URINE AND UA Color Yellow Yellow 12/13 [facility] STOOL *NA* /2014 Medical (12/13/14 11:29 AM) Cente r CARDIAC Troponin-I <0.02 0.00 - 12/13 [facility] ENZYMES 0.40 [facility] CARDIAC Troponin-T <0.010 0.000 - 12/13 [facility] ENZYMES 0.100 /2014 [facility] CARDIAC Total CK 49 12 - 191 12/13 [facility] ENZYMES [facility] CHEM PANEL Phosphorus 2.1 2.5 - 4.5 12/13 [facility] CHEM PANEL Magnesium Lvl 1.5 1.8 - 2.4 12/13 [facility] CHEM PANEL eGFR 86 12/13 [facility] Comment: The [facility] eGFR is Center calculated using the CKD-EPI formula. In most young, healthy individuals the eGFR will be >90 mL/min/1.73m2 . The eGFR declines with age. An eGFR of 60-89 may be normal in some populations, particularly the elderly, for whom the CKD-EPI formula has not been extensively validated. Use of the eGFR is not recommended in the following populations:< br/>
Carmen viduals with unstable creatinine concentration s, including patients and those with serious co-morbid conditions.<b r/>
Patie nts with extremes in muscle mass or diet.

The data above are obtained from the National Kidney Disease Education Program (NKDEP) which additionally recommends that when the eGFR is used in patients with extremes of body mass index for purposes of drug dosing, the eGFR should be multiplied by the estimated BMI. CHEM PANEL Glucose Lvl 131 70 - 99 12/13 [facility] CHEM PANEL BUN 10 7 - 22 12/13 [facility] CHEM PANEL Creatinine 0.7 0.5 - 1.4 12/13 [facility] CHEM PANEL Potassium Lvl 3.8 3.5 - 5.1 12/13 [facility] CHEM PANEL Chloride Lvl 110 95 - 109 08 s [facility] CHEM PANEL Sodium Lvl 141 135 - 145 12/13 [facility] CHEM PANEL CO2 21 24 - 32 12/13 [facility] CHEM PANEL Calcium Lvl 8.4 8.5 - 10.5 12/13 [facility] CHEM PANEL AGAP 13.8 10.0 - 08 [place] 20.0 /2014 [facility] HEMATOLOGY Segs-Bands # 12.5 1.5 - 8.1 12/13 [place] [facility] HEMATOLOGY Lymphocytes # 0.5 1.0 - 5.5 12/13 [place] [facility] HEMATOLOGY Monocytes # 0.2 0.0 - 0.8 12/13 s [facility] HEMATOLOGY Segs 94.7 45.0 - 08 [place] 75.0 /2014 [facility] HEMATOLOGY Basophils 0.1 0.0 - 1.0 12/13 [facility] HEMATOLOGY Monocytes 1.3 2.0 - 12.0 12/13 [facility] HEMATOLOGY Lymphocytes 3.9 20.0 - 08 [place] 40.0 /2014 [facility] HEMATOLOGY INR 1.11 0.85 - 08 [place] 1.17 /2014 [facility] HEMATOLOGY PTT 24.5 22.9 - 08 [place] 35.8 /2014 [facility] HEMATOLOGY PT 14.4 12.0 - 08 [place] 14.7 /2014 [facility] HEMATOLOGY Platelet 164 133 - 450 12/13 [facility] HEMATOLOGY MPV 11.1 7.4 - 10.4 12/13 [facility] HEMATOLOGY RBC 3.72 4.20 - 0818 [place] 5.40 /2014 [facility] HEMATOLOGY Hgb 11.0 12.0 - 08 [place] 16.0 /2014 [facility] HEMATOLOGY WBC 13.3 3.7 - 10.4 12/13 [facility] HEMATOLOGY Hct 34.7 36.0 - 0818 [place] 48.0 /2014 [facility] HEMATOLOGY MCV 93.2 80.0 - 0818 [place] 98.0 /2014 [facility] HEMATOLOGY MCHC 31.8 32.0 - 0818 [place] 36.0 /2014 [facility] HEMATOLOGY RDW 14.1 11.5 - 0818 [facility] 14.5 [facility] HEMATOLOGY MCH 29.6 27.0 - 12/13 [facility] 31.0 /2015 [facility] PARATHYROID Ca Norm WB 0.98 1.05 - 12/13 [place] PROFILE 1. [facility] PARATHYROID Ca Ion WB 0.99 1.05 - 12/13 [facility] PROFILE . [facility] URINE AND UA <=1.0 0.1 - 1.0 12/12 [place] [facility] Urobilinogen mg/dL /2014 [facility] URINE AND Micro? Performed 12/12 [place] [facility] *NA* /2014 [facility] (12/12/14 5:56 PM) [place] URINE AND UA Glucose Negative Negative 12/12 [place] [facility] mg/dL mg/dL [facility] URINE AND UA Ketones Negative Negative 12/12 [place] [facility] mg/dL mg/dL [facility] URINE AND UA WBC <1 0 - 5 12/12 [place] [facility] URINE AND UA RBC <1 0 - 2 12/12 [place] [facility] URINE AND UA Leuk Est Negative Negative 12/12 [place] [facility] (12/12/14 5:56 PM) /2014 [facility] URINE AND UA Protein 20 mg/dL Negative 12/12 [place] [facility] mg/dL /2014 [facility] URINE AND UA pH 7.0 5.0 - 8.0 12/12 [place] [facility] URINE AND UA Turbidity Clear Clear 12/12 [place] [facility] (12/12/14 5:56 PM) [facility] URINE AND UA Color Yellow Yellow 12/12 [place] [facility] *NA* [facility] (12/12/14 5:56 PM) [place] URINE AND UA Spec Grav 1.006 <=1.030 12/12 [place] [facility] URINE AND UA Nitrite Negative Negative 12/12 [place] [facility] (12/12/14 5:56 PM) /2014 [facility] URINE AND UA Bili Negative Negative 12/12 [facility] STOOL *NA* [facility] (12/12/14 5:56 PM) [place] URINE AND UA Blood Moderate Negative 12/12 [place] [facility] *ABN* [facility] (12/12/14 5:56 PM) Center URINE AND UA Bacteria Occasional None Seen [place]OL /HPF /HPF /2014 [facility] URINE AND UA Mucus Few /LPF None Seen 12/12 [facility] STOOL /LPF /2014 [facility] HEMATOLOGY Plt Morph See Note 4 12/12 Result [facility] (12/12/14 4:33 PM) /2014 Comment: Due [facility] to [place] occassional clumps, the actual count may be slightly higher. BLOOD BANK ABO/Rh O POS 12/12 [facility] RESULTS /2014 [facility] BLOOD BANK Antibody Scrn Negative 12/12 [facility] RESULTS (12/12/14 11:18 AM) /2014 [facility] CHEM PANEL Lactic Acid 1.8 0.5 - 2.2 12/12 [place] L[place] [facility] HEMATOLOGY Angle 76 64 - 80 12/12 [facility] /2014 [facility] HEMATOLOGY K-time 1.5 0.6 - 2.3 12/12 [facility] /2014 [facility] HEMATOLOGY R-time 0.6 0.4 - 0.7 12/12 [facility] /[address] [place] [address] HEMATOLOGY ACT (TEG) 105 86 - 118 12/12 [facility] /[address] [place] [address] HEMATOLOGY Rapid TEG Citrated Whole Blood 12/12 [facility] Sample Type (12/12/14 11:18 AM) /2014 [facility] HEMATOLOGY [place] 0.5 12/12 [facility] /[address] [place] [address] HEMATOLOGY Estimated % 0.0 0.0 - 7.5 12/12 [facility] Lysis [facility] HEMATOLOGY Max Amp 69 52 - 71 12/12 [facility] /[address] [place] [address] HEMATOLOGY G-value 11.3 5.0 - 11.6 12/12 [facility] /[address] [place] [address] HEMATOLOGY Basophils # 0.1 0.0 - 0.2 12/12 [facility] HEMATOLOGY Eosinophils 0.2 0.0 - 4.0 12/12 [facility] /2014 [facility] HEMATOLOGY RBC Morph Normal 12/12 [facility] (12/12/14 11:18 AM) /2014 [facility] BLOOD BANK Platelet Product available 12/12 [facility] RESULTS product (12/12/14 11:09 AM) /2014 [facility] CHEM PANEL POC 0.6 0.5 - 1.4 12/12 [facility] Creatinine /2014 [facility] Pathology Reports No Data Provided for This Section Diagnostic Reports Report Value Date Source Brain wo contrast CT EXAMINATION: CT BRAIN WITHOUT CONTRAST 11/26 [facility] DATE: 12/13/2014 CLINICAL INDICATION: Subdural hematoma, postsurg ical followup TECHNIQUE: Routine noncontrast CT of th e brain is compared with 2 prior studies dated 12/12/2014, the earlier performed at [facility]. DISCUSSION: The amount of subdural colle ction overlying the left hemispheric convexity has slightly decreased. The volume of pneumocephalus is similar. A subdural drain remains in place. Midline shift has slightly improved now measuring 2.6 m m at the level of the foramina of [place], versus up to 4.2 mm previously in a similar measurement plane. No new hemorrhage has developed. The ventricles and basal cisterns remain patent. IMPRESSION: Slight interval decrease in the amount of the left convexity subdural collection. Midline shift has also improved. Brain Stroke wo EXAM: CT of the brain without contrast. 12/13/19 15 [facility] contrast CT Center DATE: 12/12/2014 at 20: 47 CLINICAL HISTORY: Headaches with lack of coordin ation COMPARISON: CT 12/12/2014 at 9: 02. TECHNIQUE: Axial images of t he brain were obtained in a helical scanner from the skullbase through the vertex without contrast material administration. DISCUSSION: Interval placement of a subd ural drainage catheter via a left frontal nj hole. Decreased size of the left hemispheric subdural hematoma, now measuring 12 mm in greatest thickness with significant impr ovement in the mass effect. 7 mm left to right midline shift. No brain herniation. Postoperative pneumocephalus. Interval increase in the right frontal subdural hematoma, now measuring 9 mm versus 6 mm previously. No mass effect. Hyperdensity along the tentorium due to layering subdural hemorrhage. No parenchymal hematomas. IMPRESSION: Interval placement of a left subdural drain with decrease in the left hemispheric subdural hematoma and improvement in the mass effect. Mild interval increase in the right frontal subd ural hematoma. Chest 1view DX EXAM : XR Chest 1view, 12/12/2014 [facility] DATE : Dec 12, 2014 12:10:00 PM. Center COMPARISON : 12/12/2014. CLINICAL INDICATION: Chest pain . DISCUSSION: There is minimal left basila r atelectasis. Otherwise lungs are clear. Cardiomediastinal silhouette is within normal limits. No pleural effusions or pneumothorax. No acute osseous abnormality. Soft tissues are within normal limits. IMPRESSION: No acute radiographic abnormality of the chest. Consultation Notes No Data Provided for This Section Discharge Summaries No Data Provided for This Section History and Physicals No Data Provided for This Section Vital Signs Vital Sign Value Date Comments Source Weight 148 12/29/2014 [facility] Temperature Oral (F) 98.3 F 12/29/2014 [facility] Heart Rate 72 12/29/2014 [facility] Systolic (mm Hg) 125 12/29/2014 [facility] [place] [facility] Diastolic (mm Hg) 81 12/29/2014 [facility] Height 63 12/29/2014 [facility] Systolic (mm Hg) 149 12/15/2014 [facility] Diastolic (mm Hg) 70 12/15/2014 [facility] Heart Rate 65 12/15/2014 [facility] Temperature Oral (F) 97.8 F 12/15/2014 [facility] Systolic (mm Hg) 152 12/15/2014 [facility] dical [place] Diastolic (mm Hg) 74 12/15/2014 [facility] Respitory Rate 19 12/15/2014 [facility] Heart Rate 66 12/15/2014 [facility] Temperature Oral (F) 98.9 F 12/15/2014 [facility] Heart Rate 65 12/15/2014 [facility] Systolic (mm Hg) 124 12/15/2014 [facility] Diastolic (mm Hg) 67 12/15/2014 [facility] Respitory Rate 19 12/15/2014 [facility] Respitory Rate 20 12/15/2014 [facility] Temperature Oral (F) 98.2 F 12/15/2014 [facility] Height 160.02 cm 12/12/2014 [facility] BMI Calculated 27.51 12/12/2014 [facility] Weight 70.455 12/12/2014 [facility] Encounters Location Location Encounter Encounter Reason Attending ADM DC Stat us Source Details Type Number For Provider Date Date Visit [facility] [id number] [place] 12/12 12/12 [facility] ([facility]) Leon /2014 [facility] [id number] Phil 12/12 12/15 Deanne Hoyos Davies /2014 [facility] [id number] Shaan 12/29 12/29 Mis cinda Neuro[facility] Visit [address], N joseph [facility] Procedures Procedure Code Date Perfomer Comments Source Bladder [id number] [facility] Assessment and Plan No Data Provided for This Section Plan of Care No Data Provided for This Section Social History Social History Date Source Social History TypeResponse 12/12/2014 [facility] Smoking Status Never smoker; Exposure to Tobacco Smoke None; Cigarette Smoking Last 365 Days No; Reg Smoking Cessation Counseling No Family History No Data Provided for This Section Advance Directives No Data Provided for This Section Functional Status No Data Provided for This Section
--- OUTSIDE RECORDS SUMMARY | 2020-03-08 10:38 | XMS REPORT | Continuity of Care Document ---
:1940 Author Organization [facility] t Address [address] [place] [address] Care Team Providers Name Role Phone Mehnaz Mason DO Primary Care Physician Bradley Bae MD Attending Clinician Noel Attending Clinician Unavailable Gurpreet Guzman MD Attending Clinician Margarito RUTHERFORD Attending Clinician Unavailable GREGOR Attending Clinician Unavailable ARCELIA Attending Clinician Unavailable GLADIS Attending Clinician Unavailable Clive Davies Attending Clinician Neeraj Leon Jr Attending Clinician KATHYA Admitting Clinician Unavailable Get Chun Admitting Clinician Payers Payer Name Policy Type Policy Effective Date Expiration Date Sour ce Number MEDICAREMEDICARE PART [id number] 2005 Rhys Lindsay AND 00:00:00 Yarsani [id number] 2005- [place], [place] [id number] 2018 Gary MUTUALPHYSICIANS 00:00:00 Aakash barriga [id number]/04/29 019-PresentCommercial Problems Condition Condition Condition Status Onset Resolution Last Treating Co mments Source Name Details Category Date Date Treatment Clinician Date Pseudophak Pseudophak Disease Active Overview : Gary ia, left ia, left 7-13 11/08/19Ph Met hodi eye eye 00:00: aco iol st 00 ospcboo +26.5 d monovisio nPCO - s/p CAPSULOTO MY Pseudophak Pseudophak Disease Active Overview : Wright ia, right ia, right 6 Phaco iol M ethodi eye eye 00:00: od6/20P st CBOO +24 dDEXTENZA IMPLANT, R LOWER CANALICUL US20/20 SUBDURAL Condition Active 2014-12-29 M emoria HEMATOMA 12-16 13:05:10 l SUBDURAL 00:00: Peng n HEMATOMA 00 Active 12/16/2014 Condition 5 Mischer Neuro AP Diagnosis Active 2014-12-12 Mem oria 12-12 10:33:00 l AP 00:00: Romain 00 Active 12/12/2014 [facility] [place] MARY CARMEN Diagnosis Active 2014-12-13 Memoria BILLIGN 12-12 10:10:00 l 00:00: Romain MARY CARMEN 00 BILLIGN Active 12/12/2014 [facility] [place] ACUTE ON Diagnosis Active 2015-01-31 M emoria 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 00:00: Herm abbie MIDLINE CHRONIC 00 SHIFT SDH WITH MIDLINE SHIFT Active 12/12/2014 [facility] [place] Streptococ Streptococ Problem Active M atagor rosy sore rosy Sore da throat [facility] Viral Viral Problem Active [place] [facility] Closed Closed Problem Active Univers displaced displaced HL7.CCDAR2 ity of fracture fracture [place] of neck of of neck of Ph ysici right right ans radius radius with with routine routine healing healing Tinnitus Tinnitus Problem Active [facility] Closed Closed Problem Active Univers disp fx of disp fx of HL7.CCDAR2 ity of coronoid coronoid [place] process of process of Ph ysici left ulna left ulna ans with with routine routine healing healing Otalgia Otalgia Problem Active [facility] Closed Closed Problem Active Univers Monteggia' Monteggia' HL7.CCDAR2 ity of s fracture [place] of right of right Physic i ulna with ulna with ans routine routine healing healing Acute Acute Problem Active [place] bronchitis Bronchitis [facility] Closed Closed Problem Active Univers posterior posterior HL7.CCDAR2 it[place] of dis[place] of n of Physici elbow, elbow, ans left, left, subsequent subsequent encounter encounter Rhinitis Rhinitis Problem Active [facility] Fall on Fall on Problem Active Univers same same HL7.CCDAR2 ity of level, level, [place] subsequent subsequent Ph ysici encounter encounter ans Erythema Erythema Problem Active [facility] On On Problem Active [facility] examinatio Examinatio da n - n - Medical hoarseness Hoarseness Gr oup Dysphasia Dysphasia Problem Active [facility] Reflux Reflux Problem Active [facility] Hypertroph Hypertroph Problem Active M atagor y of nasal y of Nasal da turbinates Turbinates Me dical Group SUBDURAL Diagnosis Active 2015-01-31 M emoria HEMORRHAGE 21:55:00 l SUBDURAL Peng n HEMORRHAGE Active [facility] [place] History of Past Illness Condition Condition Condition Status Onset Resolution Last Treating Co mments Source Name Details Category Date Date Treatment Clinician Date 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-09 2019-11-09 Gary sclerotic sclerotic d 6-02 00:00:00 09:40:47 Methodi cataract, cataract, 00:00: st left left 00 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 2019-11-09 Gary forms of forms of d 00:00:00 09:40:55 Me thodi age-relate age-relate st d d cataract, cataract, left eye left eye Allergies, Adverse Reactions, Alerts Allergy Allergy Status Severity Reaction(s) Onset Inactive Treating Comm ents Source Name Type Date Date Clinician Dye Propensi Active Rash IV Gary ty to 3-05 constrast Methodi adverse 00:00: dye st reaction 00 s to drug Codeine Propensi Active GI Gary ty to Intolerance 9-03 Metho di adverse 00:00: st reaction 00 s to drug Barbital Propensi Active Unknown [place] on ty to Reaction 8-11 Methodi adverse 00:00: st reaction 00 s to drug Codeine Allergy Active [place] to da substanc [facility] Group barbitur barbitur Active Memori a ates ates mark [place] Social History Social Habit Start Date Stop Date Quantity Comments Source Sex Assigned At Gary M ethodist Exposure to Not sure Gary Metho dist SARS-CoV-2 (event) Tobacco use and 2020-02-09 2020-02-09 Never used Kyle Espinoza ethodist exposure 00:00:00 00:00:00 Alcohol intake 2020-02-09 2020-02-09 Ex-drinker Kyle Olsen thodist 00:00:00 00:00:00 (finding) Tobacco Comment 2019-07-01 2019-07-01 late was Garfield Ortiz 00:00:00 00:00:00 a smoker Smoking Status Start Date Stop Date Source Social History [facility] Medications Ordered Filled Start Stop Current Ordering Indication Dosage Frequency Signature Comments Components Source Medication Medication Date Date Medication? Clinician (SIG) Name Name diphenhydrA 2019-04 Yes 1{tbl} QD Take 1 [place] MINE-acetam 0-14 tablet by Met silvana mansfield 10:54: mouth st (TYLENOL PM 35 nightly as EXTRA needed for STRENGTH) sleep. 25-500 mg tablet cholecalcif Yes 1{capsu Take 1 [place] jonh, 7-14 le} capsule by Derrick vitamin D3, 08:41: mouth. st 50 mcg 33 (2,000 unit) capsule capsule B-12 CAPS Yes Memoria 9-03 l 00:00: [place] 00 senna 8.6 Yes 8.6 mg = 1 Me moria mg oral 8-20 tab, PO, l tablet 20:13: Bedtime, [place] 00 PRN Constipati on, 0 Refill(s) Levetiracet Yes 500 mg = 1 Memoria am 500 MG 8-20 tab, PO, l Oral Tablet 20:13: Q12H, # 8 H ermann 00 tab, 0 Refill(s) Docusate Yes 50 mg = 1 Fabián hoa Sodium 50 8-20 cap, PO, l MG Oral 20:13: Daily, # 7 Herm abbie Capsule 00 cap, 0 Refill(s) Acetaminoph No 650 mg = 2 Memoria en 325 MG 8-20 tab, PO, l Oral Tablet 18:30: QID, # 14 H ermann [Tylenol] 00 tab, 0 Refill(s) Acetaminoph No Notes: Do M emoria en 8-19 not exceed l 14:52: 4 gm/day. [place]wey 00 (Same as: Tylenol) heparin No Notes: Memoria -19 porcine l 13:00: heparin Romain 00 Neutra-Phos No Notes: Fabián hoa 8-18 (Same as: l 16:30: Neutra-Jyoti Romain 00 s) Each 1.25 gm pkt has 250mg phosphorou s. Mix w/2.5oz water and stir. Docusate No Notes: Memoria 8-18 (Same as: l 14:00: Colace) Romain (Do Not Crush) Acetaminoph No Notes: Max Memoria en 12-13 acetaminop l 13:51: hen = 4000 [place]wey 00 mg/day (4 gm/day). (Same as: Tylenol) Oxycodone No Notes: Memori a Hydrochlori 12-13 (Same as: l de 5 MG 13:51: Roxicodone Herm abbie Oral Tablet 00 ) calcium No 3,000 mg, Memor ia gluconate + 12-13 30 mL, l Sodium 11:00: Route: Romain Chloride 00 IVPB, 0.9% IV 100 ONCE, mL Start date: 12/13/14 6:00:00, Stop date: 12/13/14 6:00:00 potassium No Notes: Memori a phosphate + 12-13 (Same as: l Sodium 11:00: K [place] Chloride 00 Phosphate. 0.9% IV 250 ) 1 mMol mL phoshate has 1.47 mEq potassium Infuse over 4 hours magnesium No 2 gm, 50 Fabián hoa sulfate 8-18 mL, Route: l 11:00: IVPB, Drug [place]wey form: INJ, Q2H, Start date: 12/13/14 6:00:00, Duration: 2 doses or times, Stop date: 12/13/14 8:00:00 Saline No Notes: Memoria Flush 0.9% 18 (Same as: l 02:00: BD Romain 00 Posiflush) Docusate No Notes: Memoria 8-18 (Same as: l 02:00: Colace) Romain 00 sennosides, No Notes: Fabián hoa INTERMEDIATE 18 (Same as: l 02:00: Senokot) [place]wey Levetiracet No Notes: Fabián hoa am 8-18 (Same l 02:00: as:Keppra) Zofran No Notes: Memoria 12-12 (Same as: l 21:57: Zofran) senna 8.6 No Notes: Memori a mg oral 12-12 (Same as: l tablet 21:47: Senokot) NS 1,000 mL No 1,000 mL, M emoria 12-12 Rate: 75 l 21:46: ml/hr, Infuse over: 13.3 hr, Route: IV, Dosing Weight 70.455 kg, Total Volume: 1,000, Start date: 12/12/14 16:46:00, Duration: 30 day, Stop date: 01/11/15 16:45:00 Acetaminoph No Notes: Fabián hoa en 325 MG / 12-12 (Same as: l Hydrocodone 21:00: Stanton Daly nn Bitartrate 00 325/10) 10 MG Oral Tablet Naloxone No Notes: Memoria 12-12 Same as l 20:14: Narcan Ondansetron No Notes: Fabián hoa 12-12 (Same as: l 20:14: Zofran) MEDICATION WASTE Product Size: 4 mg Product Wasted: __0_ mg Hydromorpho No Notes: Fabián hoa ne 12-12 Same as: l 20:14: Dilaudid Flumazenil No Notes: Memor ia 12-12 (Same as: l 20:14: Romazicon) Cefazolin No Notes: Memori a 12-12 (Same As: l 20:00: Ancef, Kefzol) MEDICATION WASTE Product Size: 1000 mg Product Wasted: ___ mg Dextrose No 25 gm, 50 Fabián hoa 50% Syringe 8-17 mL, Route: l 19:52: IVP, Drug Form: INJ, Dosing Weight 70.455, kg, PRN, PRN Abnormal Lab Result, Start date: 12/12/14 14:52:00, Duration: 30 day, Stop date: 01/11/15 14:51:00 Regular No 60 Memoria Insulin, 8- units) l Human 100 19:52: Stable for He rmann UNT/ML 00 28 days at Injectable room Solution temperatur e Expires in days from ____Date Saline No Notes: Memoria Flush 0.9% 12-12 (Same as: l 19:52: BD [place] 00 Posiflush) Ondansetron No Notes: Fabián hoa 12-12 (Same as: l 19:52: Zofran) Romain 00 MEDICATION WASTE Product Size: 4 mg Product Wasted: _0__ mg Acetaminoph No Notes: Fabián hoa en 325 MG / 12-12 (Same as: l Hydrocodone 19:52: Stanton Daly nn Bitartrate 00 325/10) 10 MG Oral Tablet ceFAZolin No Route: Memori a (SCIP) 12-12 IVP, ONCE, l 18:32: Dosing [place] 00 Weight 70.455, kg, Start date: 12/12/14 13:32:00, Stop date: 12/12/14 13:32:00 Cardene 40 No Notes: Memor ia mg in NS 12-12 Same as: l 200 ml IV 16:02: Cardene Daly nn 40 mg 00 Concentrat ion: (0.2 mg /1 ml ) Aspirin 81 No Notes: Do Me moria MG Enteric 12-12 not crush l Coated 16:02: or chew. Romain Tablet 00 (Same As: Ecotrin) cefdinir cefdinir No 1capsul Q12H cefdinir [place] 300 mg 300 mg e(s) 300 mg da capsule capsule capsule Medica l Take 1 Take 1 Take 1 Group capsule capsule capsule every 12 every 12 every 12 hours by hours by hours by oral route. oral route. oral route. prednisone prednisone No prednisone [place] 20 mg 20 mg 20 mg da tablet Take tablet Take tablet Medical one tablet one tablet Take one Group by mouth by mouth tablet by bid for 5 bid for 5 mouth bid days with days with for 5 days meals then meals then with meals once a day once a day then once for 5 days for 5 days a day for with meals with meals 5 days with meals Vitamin Vitamin No Vitamin [place] B-12 B-12 B-12 [facility] Vitamin D3 Vitamin D3 No Vitamin D3 [facility] Vital Signs Vital Name Observation Time Observation Value Comments Source BP Diastolic 2018-12-10 00:00:00 81 mm[Hg] [facility] Height 2018-12-10 00:00:00 62 [facility] BMI (Body Mass 2018-12-10 00:00:00 27.6 [facility]m2 [facility] Group BP Systolic 2018-12-10 00:00:00 136 mm[Hg] [facility] Body Weight 2018-12-10 00:00:00 151 [lb_av] [facility] Systolic blood 2019-11-08 10:45:00 149 mm[Hg] Geethato n Yarsani pressure Diastolic blood 2019-11-08 10:45:00 70 mm[Hg] Morgan on Yarsani pressure Heart rate 2019-11-08 10:45:00 86 /min Gary Yarsani Body temperature 2019-11-08 10:45:00 36.33 Connie [place] Yarsani Respiratory rate 2019-11-08 10:45:00 15 /min [place] Yarsani Oxygen saturation in 2019-11-08 10:45:00 96 /min Wright Yarsani Arterial blood by Pulse oximetry Body height 2019-11-08 06:42:00 157.5 cm Wright Yarsani Body weight 2019-11-08 06:42:00 66.679 kg Wright Yarsani BMI 2019-11-08 06:42:00 26.89 kg/m2 Wright Yarsani Weight 2014-12-29 18:05:10 [facility] [place] Temperature Oral (F) 2014-12-29 18:05:10 98.3 F [facility] [place] Heart Rate 2014-12-29 18:05:10 [facility] Romain Systolic (mm Hg) 2014-12-29 18:05:10 Fabián bela Romain Diastolic (mm Hg) 2014-12-29 18:05:10 Mem orial Romain Height 2014-12-29 18:05:10 [facility] Romain Systolic (mm Hg) 2014-12-15 18:57:00 Fabián rial Romain Diastolic (mm Hg) 2014-12-15 18:57:00 Mem orial Romain Heart Rate 2014-12-15 18:57:00 [facility] Romain Temperature Oral (F) 2014-12-15 16:55:00 97.8 F Memorial Romani Systolic (mm Hg) 2014-12-15 16:55:00 Fabián rial [place] Diastolic (mm Hg) 2014-12-15 16:55:00 Mem orial [place] Respitory Rate 2014-12-15 16:55:00 Memori al [place] Heart Rate 2014-12-15 16:55:00 [facility] Romain Temperature Oral (F) 2014-12-15 13:36:00 98.9 F [facility] Romain Heart Rate 2014-12-15 13:36:00 [facility] [place] Systolic (mm Hg) 2014-12-15 13:36:00 Fabián rial Romain Diastolic (mm Hg) 2014-12-15 13:36:00 Mem orial [place] Respitory Rate 2014-12-15 13:36:00 Memori al Romain Respitory Rate 2014-12-15 08:07:00 [facility] al [place] Temperature Oral (F) 2014-12-15 08:07:[address] [facility] Height 2014-12-12 15:48:[address] [facility] BMI Calculated 2014-12-12 15:48:00 [facility] [place] Weight 2014-12-12 15:48:00 [facility] Procedures Procedure Date / Time Performing Clinician Source Performed YAG CAPSULOTOMY - OS - 2020-02-09 12:31:41 Emma Bae on Yarsani LEFT EYE Michelle PHACOEMULSIFICATION, 2019-11-08 09:17:00 Emma Bae Yarsani CATARACT, WITH IOL Michelle IMPLANTATION PHACOEMULSIFICATION, 2019-09-27 07:35:00 Emma Baeist CATARACT, WITH IOL Michelle IMPLANTATION CORNEAL TOPOGRAPHY - OU - 2019-09-15 12:27:28 Emma Bae Yarsani BOTH EYES Michelle IOL BIOMETRY - OU - BOTH 2019-09-15 12:27:25 Emma Bae Yarsani EYES Michelle TYMPANOMETRY 2018-12-10 00:00:00 [facility] [U] XRAY ELBOW MIN 3 [facility] 2018-01-09 00:00:00 [facility] [place] RIGHT [id number] Physicians [U] XRAY ELBOW MIN 3 S 2017-11-13 00:00:00 [facility] [place] RIGHT [id number] Physicians [U] XRAY ELBOW MIN 3 S 2017-10-02 00:00:00 [facility] [place] RIGHT [address] Physicians [U] XRAY ELBOW MIN 3 [facility] 2017-09-09 00:00:00 [facility] [place] RIGHT 61046 Physicians Procedure on Ulna [facility] [facility] Cholecystectomy [facility] Anesth Hysterectomy [facility] Bladder operation [facility] [place] [place] Plan of Care Planned Activity Planned Date Details Comments Source Future Scheduled 2019-11-27 INFLUENZA VACCINE RUST Yarsani Test 00:00:00 [code = INFLUENZA VACCINE] Future Scheduled 2005 65+ PNEUMOCOCCAL Gary Yarsani Test 00:00:00 VACCINE (1 of 1 - PPSV23) [code = 65+ PNEUMOCOCCAL VACCINE (1 of 1 - PPSV23)] Future Scheduled 1990 SHINGLES V[facility]INES (#[facility]) [facility] Yarsani Test 00:00:00 [code = SHINGLES VACCINES (#1)] Encounters Start End Encounter Admission Attending Care Care Encounter Source Date/Time Date/Time Type Type Clinicians Facility Department ID 2020-02-09 2020-02-09 Outpatient [facility] [id number] Gary 00:00:00 00:00:[address] 2020-02-09 2020-02-09 Outpatient KATHYAEMMA GARRETT [facility] [id number] Gary 00:00:00 00:00:[address] 2019-12-29 2019-12-29 Outpatient KATHYA, EMMA [facility] [id number] Gary 00:00:00 00:00:[address] 2019-11-24 2019-11-24 Outpatient KATHYA, EMMA [facility] [id number] Gary 00:00:00 00:00:[address] 2019-11-09 2019-11-09 Outpatient KATHYA, EMMA [facility] [id number] Gary 00:00:00 00:00:[address] 2019-11-08 2019-11-08 Outpatient KATHYA, EMMA [facility] [id number] Gary 00:00:00 00:00:[address] 2019-10-28 2019-10-28 Outpatient KATHYA, EMMA [facility] [id number] Gary 00:00:00 00:00:[address] 2019-10-13 2019-10-13 Outpatient KATHYA, EMMA [facility] [id number] Gary 00:00:00 00:00:[address] 2019-09-27 2019-09-27 Outpatient KATHYA, EMMA [facility] [id number] Gary 00:00:00 00:00:[address] 2019-09-15 2019-09-15 Outpatient KATHYA, EMMA [facility] [id number] Gary 00:00:00 00:00:[address] 2019-07-01 2019-07-01 Outpatient KATHYA, EMMA [facility] [id number] Gary 00:00:00 00:00:[address] 2018-12-23 2018-12-23 Emergency E [facility] [id number] [facility] 11:18:00 11:18:00 2018-12-10 2018-12-10 Palivela [facility] [place] - [id number] [facility]00 MD [place]: [address] Group [place], [place] - [address], Otolaryngol [place], [facility] [address] , Ph. 2018-01-21 2018-01-21 Appointmen REGINE BUNDY [facility] [id number] Univers 11:15:00 11:15:00 t; REMINGTON BUNDY ity o f ANDREW, M.D. [place] M.D. Physici ans 2017-11-19 2017-11-19 Appointmen REGINE PANIAGUA [facility] [id number] Univers 11:00:00 11:00:00 t; JAVIER PANIAGUA NP ity of [place], NP [place] Physici ans 2017-10-08 2017-10-08 Appointmen REGINE BUNDY [facility] [id number] Univers 13:15:00 13:15:00 t; REMINGTON BUNDY ity o f ANDREW, M.D. [place] MVishnu Physic ans 2017-09-10 2017-09-10 Appointmen GREGOR [facility] [id number] Univers 13:45:00 13:45:00 t; REMINGTON BUNDY, Orthopedics i ty [facility] 2017-01-22 2017-01-22 Appointmen GLADIS, UTP UTP [id number] Univers 10:45:00 10:45:00 t; MAURO GRIFFITH ity of [facility] 2017-01-15 2017-01-15 Appointmen NASREENE, UTP UTP [id number] Univers 10:15:00 10:15:00 t; MAURO GRIFFITH ity of [facility] 2017-01-01 2017-01-01 Appointmen GLADIS, UTP UTP [id number] Univers 10:15:00 10:15:00 t; MAURO GRIFFITH ittrevor of [facility] 2016-12-10 2016-12-10 Appointmen GLADIS, UTP UTP [id number] Univers 10:30:00 10:30:00 t; MAURO GRIFFITH ity of [facility] 2016-12-09 2016-12-09 Appointmen GLADIS, UTP UTP [id number] Univers 13:30:00 13:30:00 t; MAURO GRIFFITH of [facility] 2014-12-12 2014-12-15 Outpatient Samson [facility] [id number] 10:48:00 14:41:00 Phil Duffy 2014-12-12 2014-12-12 Outpatient Zion Leon [facility] [id number] 10:26:00 10:26:00 (Red) H 29 Results Test Description Test Time Test Comments Results Result Sour e Comments Yag Capsulotomy 2020-01-27 Time OutConfirmed [place] - OS - Left Eye 4 correct patient, Met hodist 12:31:41 procedure, site, and patient consented. AnesthesiaTopical anesthesia was used. Anesthesia medications included Tropicamide 1%, Proparacaine, Phenylephrine HCL 2.5%. Laser InformationThe type of laser was yag. Total spots was 33. The energy was 1.4 mj. Total energy was 44 mj. Post-opThe patient tolerated the procedure well. There were no complications. The patient received written and verbal post procedure care education. Corneal Topography, Galilei - OU 2019-09-26 20:08:03 Test Item Value Reference Range Interpretation Comme nts zzAstigmatism (OD) (test code = 316) 0.46x 42 TOR (test code = TOR) Right EyeFindings include normal observations. Astigmatism is 0.46x 42. Left EyeFindings include normal observations. NotesCornea cleared with lubrication Kyle MethodistIOL Master - OU - Both [id number] 13:39:06 Test Item Value Reference Range Interpretation Comments Axial Length-OD (test 22.87 code = 4865) Axial Length-OS (test 22.82 code = 4866) Anterior Chamber 2.80 Depth-OD (test code = 4867) Anterior Chamber 2.89 Depth-OS (test code = 4868) White to White-OD 11.8 (test code = 4878) White to White-OS 11.8 (test code = 4879) TOR (test code = TOR) Right EyeLens style: PCBOO . Lens power: +24.0 D . Target refraction: -0.22 D. Axial length was 22.87. White to white was 11.8. AC Depth was 2.80. Left EyeLens style: PCBOO. Lens power: +24.50 CYL MINIMAL. Target refraction: -0.36 D. Axial length was 22.82. White to white was 11.8. AC Depth was 2.89. Notes RIOL CALCULATION ORDER SHEETRIGHT EYE DOMINANTGALILEI: OD +0.4 X37 IOL M +0.87X 177GAL: OS +0.35 X68 IOL M +0.57 X 24 DATE OF TESTIN09/15/19 DATE OF SURGERY: OD OSRK PRK LASIK SILICONE OIL SCLERAL BUCKLE PKP [...] OD OS BACKUP LENS : OD OS Wright Yarsani[U] XRAY ELBOW MIN 3 VWS RIGHT [id number] 13:53:00Images acquired, not reported on this accession number.[facility] Physicians [U] XRAY ELBOW MIN 3 VWS LEFT [id number] 13:53:00Images acquired, not reported on this accession number.[facility] PhysiciansCHEM PANEL 2014-12-15 09:06:002.8[facility] HermannCHEM [id number] 09:06:001.9[facility] HermannCHEM [id number] 09:06:0094[facility] HermannCHEM [id number] 09:06:0013[facility] HermannCHEM [id number] 09:06:0086[facility] HermannCHEM UHTDM0094-48-28 09:06:000.7[facility] HermannCHEM AATWK9640-39-13 09:06:003.5 [facility] HermannCHEM [id number] 09:06:0027[facility] HermannCHEM PANEL 2014-12-15 09:06:78673Zuynplfm HermannCHEM [id number] 09:06:31655Nzybkclr HermannCHEM VTJML6926-96-83 09:06:008.8[facility] HermannCHEM [id number] 09:06:0012.5[facility] IljkwhvSRXMHDYEGO5537-00-33 09:06:0038.6[facility] [place] ZCQRERPNYZ4993-91-80 09:06:008.1[facility] MjrmjmsVRAAGROXYI5083-31-92 09:06:004.6 Memorial QbgpkdmDFISXZFTFD1892-40-03 09:06:0051.2[facility] HermannHEMATOLOGY 2014-12-15 09:06:000.1[facility] WfouzdiRKCMUOOUAK8750-18-57 09:06:000.1[facility] AggqaciUQDEFZOMCX5730-12-49 09:06:00Normal (12/15/14 4:06 AM)[facility] [place] [id number] 09:06:00Normal (12/15/14 4:06 AM)[facility] HermannHEMATOLOGY 2014-12-15 09:06:001.1[facility] RwtusixOXNNOHHHGK4101-95-68 09:06:006.1[facility] QmlshixJJBSMWACOQ9544-41-21 09:06:001.0[facility] PkvzyrhDFAHTBOTTR8650-08-75 09:06:001.0[facility] IbyhqioWAOMKAOIIN9908-40-84 09:06:00 Test Item Value Reference Range Interpretation Comments PT (test code = PT) 13.8 s 12.0-14.7 [facility] YiixbzwHUWTTTKHQS3030-46-42 09:06:00 Test Item Value Reference Range Interpretation Comments PTT (test code = PTT) 38.3 s 22.9-35.8 [facility] GkeccxgBANVKJYGAB7844-10-79 09:06:001.06[facility] HermannHEMATOLOGY 2014-12-15 09:06:00 Test Item Value Reference Range Interpretation Comments MCH (test code = MCH) 29.9 pg 27.0-31.0 [facility] IrgpmfzCOEGKSHGCT3602-89-53 09:06:0032.3[facility] HermannHEMATOLOGY 2014-12-15 09:06:0014.1[facility] IyrqomxDQKIHRCTKG9844-11-59 09:06:0011.8[facility] FqsmsrdGXWHZFBFAL0547-28-27 09:06:0036.3[facility] VtforojBBERKEGUUM3735-92-24 09:06:0092.6[facility] NnszqnpHRAOJXDAKC4181-01-77 09:06:0012.0[facility] Romain IIEAUFPFWU2457-48-41 09:06:003.93[facility] WlebbhvUECXYNAXBF5336-73-71 09:06:00 11.5[facility] DuwyajcSVWAYPQBOP4381-88-74 09:06:36220Wejpmgpd HermannPARATHYROID LKGWSCK1289-73-59 09:06:001.18[facility] HermannPARATHYROID WXCHFSQ5964-31-73 09:06:001.15[facility] HermannCHEM ESIKO7622-59-35 08:18:003.3[facility] HermannCHEM HRBRX4989-71-39 08:18:002.3[facility] CwhrkgmMVAPQGFSHREH7131-09-51 08:18:0012.0 Memorial FvaznpoPWTFRTMOOXAL3749-35-79 08:18:0073[facility] HermannELECTROLYTES 2014-12-14 08:18:55630Wykvrhgv ByiszvsEWYUJBKQNRRI1258-90-60 08:18:004.0[facility] XbnsjavZDYQSQTOLEXY1445-91-73 08:18:009.4[facility] MtfxqlsWCKSPXSXDKQA1219-85-98 08:18:0025[facility] RneomvcMXLSTYUUQJZV1261-40-95 08:18:80922Csjpkmfy [place] CKRNJIDWEFEK2840-70-08 08:18:84129Mvolugvv SgmowqoBMHKTEEJQDEJ4592-33-80 08:18:0017[facility] MpbtculEPUCTUPFFDFY4370-50-58 08:18:000.8[facility] BIGWUOENUG0121-88-25 08:18:0032.6[facility] IavpgjkHPUXQOWXBW2661-20-57 08:18:00 Test Item Value Reference Range Interpretation Comments MCH (test code = MCH) 30.3 pg 27.0-31.0 [facility] XmcsliuJIIVUNMZVD6281-28-97 08:18:0014.2[facility] HermannHEMATOLOGY 2014-12-14 08:18:01193Uspttdcd QeknldcRZOLPELNDF6860-29-22 08:18:0010.9[facility] NgotbteKEGRMNYNQD8547-80-80 08:18:0011.2[facility] YjwogqzASFSCORGWU1209-24-88 08:18:003.71[facility] PkbaubsEVNHCNLCKM1482-26-92 08:18:0014.3[facility] DENFRWIMBY5207-51-67 08:18:0034.5[facility] NvhxfsdTBPEYCWTJQ5625-09-09 08:18:00 93.0[facility] LdlsrtgABNDYDLCSL4636-74-90 08:18:001.10[facility]annHEMATOLOGY 2014-12-14 08:18:00 Test Item Value Reference Range Interpretation Comments PTT (test code = PTT) 25.9 s 22.9-35.8 [facility] XomnudpYKJUYXFTJA9001-27-51 08:18:00 Test Item Value Reference Range Interpretation Comments PT (test code = PT) 14.3 s 12.0-14.7 [facility] ChgqtwsLGRTXUUNQE4568-70-56 08:18:0013.6[facility]annHEMATOLOGY 2014-12-14 08:18:000.3[facility] AcuqspfDLZPXQHASD7978-81-79 08:18:005.6[facility] CapylazRRQOENVAHL2786-72-26 08:18:000.8[facility] JrclxzpQBUFYBUNQN7685-84-39 08:18:0011.5[facility] HuaiyhlLPTLMFHMZA3637-44-30 08:18:002.0[facility] LTBWSUADHL9052-94-12 08:18:0080.5[facility] HermannPARATHYROID LIENPSU2214-43-97 08:18:001.14[facility] HermannPARATHYROID XBAMHZE5721-77-17 08:18:001.14[facility] HermannBACTERIAL - BWACFBRE3793-60-48 16:29:00Negative (12/13/14 11:29 AM) [facility] BVZJB2795-06-80 16:29:00Clear (12/13/14 11:29 AM) [facility] JHRQM3182-85-71 16:29:001.011[facility] AAFGO2420-83-97 16:29:006.0[facility] OKMJE8354-17-54 16:29:00 Large *ABN*(12/13/14 11:29 AM)[facility] SHJGL1970-64-22 16:29:00 Negative (12/13/14 11:29 AM)[facility] AJUSB6920-87-74 16:29:00 Negative (12/13/14 11:29 AM)[facility] MOTTR7641-12-57 16:29:00 Negative *NA*(12/13/14 11:29 AM)[facility] MSJMS1056-15-88 16:29:006[facility] TMGED1620-53-93 16:29:0052[facility] URINE AND GQEFH9628-70-48 16:29:00Yellow *NA*(12/13/14 11:29 AM)[facility] CARDIAC IYORVCR6695-63-59 07:00:00<0.02[facility] HermannCARDIAC ENZYMES 2014-12-13 07:00:00<0.010[facility]annCARDIAC KPANRAT3239-85-94 07:00:0049 [facility]annCHEM ARYIE9986-22-74 07:00:002.1[facility]annCHEM PANEL 2014-12-13 07:00:001.5[facility] HermannCHEM HSPLP4081-49-85 07:00:0086[facility] HermannCHEM KWVUE4065-38-12 07:00:43133Jzwbprim HermannCHEM DTLNN7750-30-49 07:00:0010[facility] HermannCHEM SUPHF0821-55-84 07:00:000.7[facility] HermannCHEM THKAQ8233-40-02 07:00:003.8[facility] HermannCHEM BFJLO1715-60-30 07:00:04296 [facility]annCHEM KMZOY9640-95-51 07:00:34659Pccgvspe HermannCHEM PANEL 2014-12-13 07:00:0021[facility] HermannCHEM WRXCO7018-44-81 07:00:008.4[facility]annCHEM VMDFQ5920-35-09 07:00:0013.8[facility] VxxbhctSCVYRXPZJN3892-32-22 07:00:0012.5[facility] CofhzxxETNSZFGELI5261-49-47 07:00:000.5[facility] HMAOTMUEWK9855-16-54 07:00:000.2[facility] MadvivhNMBIEHSTLI9696-57-46 07:00:00 94.7[facility] WqyhbltYGBNHNMVBG4993-04-01 07:00:000.1[facility]annHEMATOLOGY 2014-12-13 07:00:001.3[facility] EepifxcAQIDPUOAFN3354-33-63 07:00:003.9[facility] IvpwplpIHMAQIFLPE5123-60-31 07:00:001.11[facility] VkgxirzPAHRTCIFVN7564-78-69 07:00:00 Test Item Value Reference Range Interpretation Comments PTT (test code = PTT) 24.5 s 22.9-35.8 [facility] CftufbgEVNUQCMCVW5231-46-73 07:00:00 Test Item Value Reference Range Interpretation Comments PT (test code = PT) 14.4 s 12.0-14.7 [facility] VfdnypkWOIUUOPBCD0118-55-68 07:00:48162Blwgvgzy HermannHEMATOLOGY 2014-12-13 07:00:0011.1[facility] ZpfulhlXFWUAIZDPO8676-53-91 07:00:003.72[facility] BiybjasPUYPCSRKTU8652-00-34 07:00:0011.0[facility] AneavvqTPIXDTGTCJ8642-28-75 07:00:0013.3[facility] QdturblLHBZJFVVWY7363-82-62 07:00:0034.7[facility] DNKFMDRWQH1385-19-86 07:00:0093.2[facility] ZtfsdfhKYHXAJKPMO6855-80-44 07:00:00 31.8[facility] NqrpnvkIGNIAEOAHL5837-78-74 07:00:0014.1[facility] HermannHEMATOLOGY 2014-12-13 07:00:00 Test Item Value Reference Range Interpretation Comments MCH (test code = MCH) 29.6 pg 27.0-31.0 [facility] HermannPARATHYROID UWINZEJ4726-84-92 07:00:000.98[facility] PARATHYROID LSVTVCT3905-49-12 07:00:000.99[facility]UR[facility] AND STOOL 2014-12-12 22:56:00Performed *NA*(12/12/14 5:56 PM)[facility] QLPDD3287-40-25 22:56:00<1[facility] PMLTA7265-96-52 22:56:00 <1[facility] JKCRD4815-12-32 22:56:00Negative (12/12/14 5:56 PM)[facility] QTWQZ6179-39-97 22:56:007.0[facility] LJYJD1657-26-30 22:56:00Clear (12/12/14 5:56 PM)[facility] YTEYH6930-47-52 22:56:00Yellow *NA*(12/12/14 5:56 PM)[facility] DWILP5841-14-21 22:56:001.006[facility] ZYTMU9716-20-61 22:56:00 Negative (12/12/14 5:56 PM)[facility] HDDXB7003-73-44 22:56:00 Negative *NA*(12/12/14 5:56 PM)[facility] KKFGI5609-61-09 22:56:00 Moderate *ABN*(12/12/14 5:56 PM)[facility] RuugtipQDBRZJPQRC1589-72-60 21:33:00See Note 4(12/12/14 4:33 PM)[facility] EZITHLI0930-79-03 16:18:00 Negative (12/12/14 11:18 AM)[facility] HermannCHEM ZTTMY5551-16-22 16:18:[address].8 [facility] EpgwemsJTXHAPZKMV8752-43-17 16:18:00 Test Item Value Reference Range Interpretation Comments Angle (test code = Angle) 76 degrees 64-80 [facility] XihuunhQWAZDWQYNH0873-91-95 16:18:00 Test Item Value Reference Range Interpretation Comments K-time (test code = K-time) 1.5 min 0.6-2.3 [facility] KdoxnnhSKNEKCAFMF9564-95-34 16:18:00 Test Item Value Reference Range Interpretation Comments R-time (test code = R-time) 0.6 min 0.4-0.7 [facility] NsqmhwfDXFHHLWWQE4167-32-16 16:18:00 Test Item Value Reference Range Interpretation Comments ACT (TEG) (test code = ACT (TEG)) 105 s 86-118 [facility] ZslqjneGCFMSDGAPB9831-44-86 16:18:00Citrated Whole Blood (12/12/14 11:18 AM)[facility] HospitalBojrsflBOZQWHLVXP6064-78-26 16:18:00 Test Item Value Reference Range Interpretation Comments Split Point (test code = Split Point) 0.[address] [facility] DtfdcezKMAPYTEZBZ8207-11-36 16:18:000.0[facility] HermannHEMATOLOGY 2014-12-12 16:18:00 Test Item Value Reference Range Interpretation Comments Max Amp (test code = Max Amp) 69 mm 52-71 [facility] MsvimsiKGVXBBQTOI5897-57-19 16:18:0011.3[facility] HermannHEMATOLOGY 2014-12-12 16:18:000.1[facility] BkbmvjrRQXGPGZJVL1251-34-29 16:18:000.2[facility] NjxmqboASRFUZGKBA4298-58-34 16:18:00Normal (12/12/14 11:18 AM)[facility] BLOOD BANK JLIDUDI7851-56-03 16:09:00Product available (12/12/14 11:09 AM) [facility] SUQXR0930-66-29 16:00:000.6[facility]
[2020-03-08] MEDS ORDERED: MORPHINE 2 MG/ML SYR ONE ×2 (12:14→13:40)
[2020-03-08] MEDS ORDERED: NA CHLORIDE 0.9% 500 ML ONE (12:14)
[2020-03-08] MEDS ORDERED: ONDANSETRON 4 MG/2 ML VIAL ONE (12:14)
[2020-03-08 12:29] LABS: Urine Blood 2+ (NEG); Urine Glucose NEGATIVE (NEG); Urine Protein NEGATIVE (NEG); Urine Specific Gravity 1.015 (1.005-1.030)
[2020-03-08 12:39] LABS: Basophils % 0.6 % (0-1.3); Hematocrit 40.7 % (36.0-45.0); Lymphocytes % 30.2 % (15.3-44.8); MPV 10.1 fL (7.6-11.3); RBC Red Blood Cell Count 4.23 M/uL (3.86-4.86)
[2020-03-08 12:41] LABS: Albumin 4.4 g/dL (3.4-5.0); Bilirubin Direct 0.2 mg/dL (0-0.2); Bilirubin Total 0.7 mg/dL (0.2-1.0); Potassium 3.9 mmol/L (3.5-5.1); Protein, Total 8.4 g/dL (6.4-8.2)
--- NOTE | 2020-03-08 13:17 | RAD REPORT ---
EXAM DESCRIPTION: CT - Spine Lumbar Wo Con - 03/08/2020 12:43 pm CLINICAL HISTORY: PAIN, left lower extremity radiculopathy, low back pain radiating to the left side abdomen and pelvis COMPARISON: CT abdomen and pelvis May 2016 TECHNIQUE: Thin section axial imaging of the lumbar spine was performed. Sagittal and coronal recon struction images were generated and reviewed. All CT scans are performed using dose optimization technique as appropriate and may include automated exposure control or mA/KV adjustment according to patient size. FINDINGS: Extensive degenerative changes are present in the lumbar spine. There is left lateral tilt and a mild left convex scoliotic curvature with the apex at L3. Approximately 3 minutes mm of left l ateral subluxation of L4 relative to L5. Lumbar AP alignment shows only very slight retrolisthesis of L2 on L3 and L3 on L4. Underlying osteopenic changes are present. No paraspinal mass identified. Central canal detail is inh erently limited. Multilevel circumferential disc bulge changes are present without central spinal jovi nosis. There is prominent facet joint degenerative change in the lower lumbar spine along with ligame ntous thickening. Foraminal stenosis changes are seen on the left at L5-S1 and on the left at L4-5. Concave contour is seen to the superior endplate L4. Posterior wall height is maintained. Schmorl's n ode is also present. An acute fracture line in L4 is not identified. There are no acute fracture danielle ges seen. No lytic, sclerotic or expansile bony destructive process seen. Disc space narrowing and de generative gas are present at the L2-3 through L5-S1 disc levels. Concavity of the inferior endplate T12 noted. Faint linear lucencies are present. T12 findings are qu estionably acute. Posterior wall height and overall body heights are preserved. IMPRESSION: T12 inferior endplate shows concave contour with questionable lucent lines. Overall body height is preserved. Acute fracture component at this level cannot be excluded. Correlation is neede d with localizing symptoms to the thoracolumbar junction. Remainder of the lumbar spine, as detailed above, shows degenerative vertebral body, disc and posteri or element changes. No acute findings seen.
--- NOTE | 2020-03-08 13:50 | EDPHYS ---
Physician Documentation [facility] Name: Nishi Ariza Age: 79 yrs Sex: Female : 1940 Arrival Date: 03/08/2020 Time: 10:12 Bed 15 Private MD: AMANDA Physician Mj De Paz HPI: 03/08 11:57 This 79 yrs old Female presents to ER via Ambulatory with complaints of Back birdie Pain. 11:57 The patient presents with pain that is acute. The symptoms are located in the low back, birdie L1, L2, L3, L4 and L5. Onset: The symptoms/episode began/occurred 2 day(s) ago. The pain does not radiate. Associated signs and symptoms: The patient has no apparent associated signs or symptoms. Modifying factors: The patient symptoms are alleviated by remaining still, the patient symptoms are aggravated by bending, coughing. Severity of symptoms: At their worst the symptoms were mild, moderate, in the emergency department the symptoms have improved. The patient has not experienced similar symptoms in the past. 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 - Social history:: Smoking status: Patient denies any tobacco usage or history of. - Family history:: not pertinent. ROS: 11:57 Constitutional: Negative for fever, chills, and weight loss, Eyes: Negative for injury, birdie pain, redness, and discharge, ENT: Negative for injury, pain, and discharge, Neck: Negative for injury, pain, and swelling, Cardiovascular: Negative for chest pain, palpitations, and edema, Respiratory: Negative for shortness of breath, cough, wheezing, and pleuritic chest pain, Abdomen/GI: Negative for abdominal pain, nausea, vomiting, diarrhea, and constipation, : Negative for injury, bleeding, discharge, and swelling, MS/Extremity: Negative for injury and deformity, Skin: Negative for injury, rash, and discoloration, Neuro: Negative for headache, weakness, numbness, tingling, and seizure, Psych: Negative for depression, anxiety, suicide ideation, homicidal ideation, and hallucinations, Allergy/Immunology: Negative for hives, rash, and allergies, Endocrine: Negative for neck swelling, polydipsia, polyuria, polyphagia, and marked weight changes. 11:57 Back: Positive for decreased range of motion, pain at rest, pain with movement. Exam: 11:57 Constitutional: This is a well developed, well nourished patient who is awake, alert, birdie and in no acute distress. Head/Face: Normocephalic, atraumatic. Eyes: Pupils equal round and reactive to light, extra-ocular motions intact. Lids and lashes normal. Conjunctiva and sclera are non-icteric and not injected. Cornea within normal limits. Periorbital areas with no swelling, redness, or edema. ENT: Nares patent. No nasal discharge, no septal abnormalities noted. Tympanic membranes are normal and external auditory canals are clear. Oropharynx with no redness, swelling, or masses, exudates, or evidence of obstruction, uvula midline. Mucous membranes moist. Neck: Trachea midline, no thyromegaly or masses palpated, and no cervical lymphadenopathy. Supple, full range of motion without nuchal rigidity, or vertebral point tenderness. No Meningismus. Chest/axilla: Normal chest wall appearance and motion. Nontender with no deformity. No lesions are appreciated. Cardiovascular: Regular rate and rhythm with a normal S1 and S2. No gallops, murmurs, or rubs. Normal PMI, no JVD. No pulse deficits. Respiratory: Lungs have equal breath sounds bilaterally, clear to auscultation and percussion. No rales, rhonchi or wheezes noted. No increased work of breathing, no retractions or nasal flaring. Abdomen/GI: Soft, non-tender, with normal bowel sounds. No distension or tympany. No guarding or rebound. No evidence of tenderness throughout. Skin: Warm, dry with normal turgor. Normal color with no rashes, no lesions, and no evidence of cellulitis. MS/ Extremity: Pulses equal, no cyanosis. Neurovascular intact. Full, normal range of motion. Neuro: Awake and alert, GCS 15, oriented to person, place, time, and situation. Cranial nerves II-XII grossly intact. Motor strength 5/5 in all extremities. Sensory grossly intact. Cerebellar exam normal. Normal gait. Psych: Awake, alert, with orientation to person, place and time. Behavior, mood, and affect are within normal limits. 11:57 Back: pain, that is mild, ROM is painful, normal spinal alignment noted, CVA tenderness, is absent, vertebral tenderness, is not appreciated, muscle spasm, is appreciated in the left low back, left mid back, right mid back and right low back. Vital Signs: 10:22 BP 183 / 84; Pulse 88; Resp 16; Temp 99(TE); Pulse Ox 100% on R/A; Weight 70.31 kg; hb Height 5 ft. 2 in. (157.48 cm); Pain 8/10; 11:20 BP 165 / 84; Pulse 77; Resp 16; Pulse Ox 99% on R/A; tw2 12:15 BP 172 / 81; Pulse 87; Resp 17; Pulse Ox 98% on R/A; tw2 13:31 BP 169 / 85; Pulse 81; Resp 17; Pulse Ox 98% ; Pain 8/10; tw2 14:09 BP 153 / 78; Pulse 83; Resp 17; Pulse Ox 98% ; Pain 4/10; tw2 10:22 Body Mass Index 28.35 (70.31 kg, 157.48 cm) hb MDM: 10:18 Patient medically screened. birdie 12:00 Differential diagnosis: Fatigue Ligament Injury Obesity Osteoporosis spinal injury, birdie sprain, Ureterolithiasis. Data reviewed: vital signs, nurses notes, lab test result(s), radiologic studies, CT scan. Data interpreted: monitor tech: rate is 77 beats/min, rhythm is regular, Pulse oximetry: on room air is 99 %. Test interpretation: by ED physician or midlevel provider: plain radiologic studies. Counseling: I had a detailed discussion with the patient and/or guardian regarding: the historical points, exam findings, and any diagnostic results supporting the discharge/admit diagnosis, lab results, radiology results, the need for outpatient follow up, for definitive care, an pharmacognosy teacher. 03/08 11:56 Order name: Basic Metabolic Panel; Complete Time: 13:44 [facility] 03/08 11:56 Order name: CBC with Diff; Complete Time: 13:44 [facility] 03/08 11:56 Order name: Hepatic Function; Complete Time: 13:44 [facility] 03/08 11:56 Order name: Lipase; Complete Time: 13:44 [facility] 03/08 11:56 Order name: Urine Culture [facility] 03/08 12:18 Order name: Urine Dipstick--Ancillary (enter results); Complete Time: 13:44 03/08 11:56 Order name: IV Saline Lock; Complete Time: 12:16 [facility] 03/08 11:56 Order name: Labs collected and sent; Complete Time: 12:16 [facility] 03/08 11:56 Order name: Urine Dipstick-Ancillary (obtain specimen); Complete Time: 13:24 [facility] 03/08 11:56 Order name: CT Lumbar Spine Wo Con; Complete Time: 13:44 [facility] Administered Medications: 12:15 Drug: NS 0.9% 500 ml Route: IV; Rate: bolus; Site: right antecubital; tw2 14:02 Follow up: Response: No adverse reaction; IV Status: Completed infusion; IV Intake: tw2 500ml 12:15 Drug: Zofran (Ondansetron) 4 mg Route: IVP; Site: right antecubital; tw2 14:09 Follow up: Response: No adverse reaction tw2 12:17 Drug: morphine 2 mg {Note: RASS 0.} Route: IVP; Site: right antecubital; tw2 13:30 Drug: morphine 2 mg {Note: RASS 0.} Route: IVP; Site: right antecubital; tw2 14:08 Follow up: Response: No adverse reaction; Pain is decreased; RASS: Alert and Calm (0); tw2 1 ml 14:04 Drug: Rocephin 1 grams Route: IV; Rate: per protocol; Site: right antecubital; tw2 14:10 Follow up: Response: No adverse reaction; IV Status: Completed infusion; IV Intake: 18apin4 Disposition: 03/08/20 13:49 Discharged to Home. Impression: Low back pain, Urinary tract infection, site not specified, Fracture of thoracic vertebra - T 12 clinically. - Condition is Stable. - Discharge Instructions: Back Pain, Adult, Musculoskeletal Pain, Urinary Tract Infection, Adult, Back Injury Prevention, Muog-kx-Fgqj, Urinary Tract Infection, Adult, Qqzm-xr-Xnmm, Back Pain, Adult, Bcrd-jq-Amuj. - Prescriptions for Bactrim DS 800- 160 mg Oral Tablet - take 1 tablet by ORAL route every 12 hours for 5 days; 10 tablet. Robaxin 500 mg Oral Tablet - take 2 tablets by ORAL route every 6 hours As needed; 30 tablet. Tylenol 325 mg Oral Tablet - take 2 tablet by ORAL route every 6 hours as needed; 1 bottle. - Medication Reconciliation Form, Thank You Letter, Antibiotic Education, Prescription Opioid Use form. - Follow up: Private Physician; When: 2 - 3 days; Reason: Recheck today's complaints, Continuance of care, Re-evaluation by your physician. Follow up: Ender Lopez MD; When: 2 - 3 days; Reason: Recheck today's complaints, Re-evaluation by your physician. - Problem is new. - Symptoms have improved. Signatures: Dispatcher [employer] EDRI Mj De Paz MD MD cha Baxter, Heather, CHRISTINA RN Misa Cueva RN RN tw2 Corrections: (The following items were deleted from the chart) 13:54 13:49 03/08/2020 13:49 Discharged to Home. Impression: Low back pain; Urinary tract birdie infection, site not specified. Condition is Stable. Forms are Medication Reconciliation Form, Thank You Letter, Antibiotic Education, Prescription Opioid Use. Follow up: Private Physician; When: 2 - 3 days; Reason: Recheck today's complaints, Continuance of care, Re-evaluation by your physician. Follow up: Ender Lopez; When: 2 - 3 days; Reason: Recheck today's complaints, Re-evaluation by your physician. Problem is new. Symptoms have improved. birdie 14:14 13:54 03/08/2020 13:49 Discharged to Home. Impression: Low back pain; Urinary tract tw2 infection, site not specified; Fracture of thoracic vertebra - T 12 clinically. Condition is Stable. Discharge Instructions: Back Pain, Adult, Musculoskeletal Pain, Urinary Tract Infection, Adult, Back Injury Prevention, Wzta-ai-Kcxk, Urinary Tract Infection, Adult, Vdwk-ir-Jhhj, Back Pain, Adult, Slkr-ms-Ectm. Prescriptions for Bactrim DS 800-160 mg Oral Tablet - take 1 tablet by ORAL route every 12 hours for 5 days; 10 tablet. and Forms are Medication Reconciliation Form, Thank You Letter, Antibiotic Education, Prescription Opioid Use. Follow up: Private Physician; When: 2 - 3 days; Reason: Recheck today's complaints, Continuance of care, Re-evaluation by your physician. Follow up: Ender Lopez; When: 2 - 3 days; Reason: Recheck today's complaints, Re-evaluation by your physician. Problem is new. Symptoms have improved. birdie
--- NOTE | 2020-03-08 13:50 | ER ---
Nurse's Notes [facility] Name: Nishi Ariza Age: 79 yrs Sex: Female : 1940 Arrival Date: 03/08/2020 Time: 10:12 Bed 15 Private MD: Diagnosis: Low back pain;Urinary tract infection, site not specified;Fracture of thoracic vertebra-T 12 clinically Presentation: 03/08 10:22 Chief complaint: Low back pain that radiates to abdomen x 2 days. Coronavirus screen: hb At this time, the client does not indicate any symptoms associated with coronavirus-19. Ebola Screen: No symptoms or risks identified at this time. Initial Sepsis Screen: Does the patient meet any 2 criteria? No. Patient's initial sepsis screen is negative. Does the patient have a suspected source of infection? No. Patient's initial sepsis screen is negative. Risk Assessment: Do you want to hurt yourself or someone else? Patient reports no desire to harm self or others. Onset of symptoms was March 07, 2020. 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 - Social history:: Smoking status: Patient denies any tobacco usage or history of. - Family history:: not pertinent. Screenin:00 Abuse screen: Denies threats or abuse. Nutritional screening: No deficits noted. tw2 Tuberculosis screening: No symptoms or risk factors identified. Fall Risk None identified. Assessment: 10:15 General: Appears uncomfortable, obese, well groomed, Behavior is calm, cooperative, tw2 appropriate for age. Pain: Complains of pain in back Pain radiates to abdomen. Neuro: Level of Consciousness is awake, alert, obeys commands, Oriented to person, place, time, situation. Cardiovascular: Heart tones S1 S2 Patient's skin is warm and dry. Respiratory: Airway is patent Respiratory effort is even, unlabored, Respiratory pattern is regular, symmetrical, Breath sounds are clear bilaterally. GI: Abdomen is round non-distended, Bowel sounds present X 4 quads. : No signs and/or symptoms were reported regarding the genitourinary system. EENT: No signs and/or symptoms were reported regarding the EENT system. Derm: No signs and/or symptoms reported regarding the dermatologic system. Musculoskeletal: Range of motion: intact in all extremities, Reports pain in back. 11:20 Reassessment: No changes from previously documented assessment. Patient and/or family tw2 updated on plan of care and expected duration. Pain level reassessed. Patient is alert, oriented x 3, equal unlabored respirations, skin warm/dry/pink. pt states "i am just uncomfortable in the bed, can i sit in the chair", chair moved closer to bed, pt able to getin chair for comfort at this time., provider notified. Patient states symptoms have not improved. 11:50 Reassessment: provider at bedside at this time. tw2 13:31 Reassessment: No changes from previously documented assessment. Patient and/or family tw2 updated on plan of care and expected duration. Pain level reassessed. Patient is alert, oriented x 3, equal unlabored respirations, skin warm/dry/pink. "the pain has come back", medicated as ordered. 14:09 Reassessment: No changes from previously documented assessment. Patient and/or family tw2 updated on plan of care and expected duration. Pain level reassessed. Patient is alert, oriented x 3, equal unlabored respirations, skin warm/dry/pink. Patient states feeling better. 14:12 Reassessment: provider at bedside at this time. tw2 Vital Signs: 10:22 BP 183 / 84; Pulse 88; Resp 16; Temp 99(TE); Pulse Ox 100% on R/A; Weight 70.31 kg; hb Height 5 ft. 2 in. (157.48 cm); Pain 8/10; 11:20 BP 165 / 84; Pulse 77; Resp 16; Pulse Ox 99% on R/A; tw2 12:15 BP 172 / 81; Pulse 87; Resp 17; Pulse Ox 98% on R/A; tw2 13:31 BP 169 / 85; Pulse 81; Resp 17; Pulse Ox 98% ; Pain 8/10; tw2 14:09 BP 153 / 78; Pulse 83; Resp 17; Pulse Ox 98% ; Pain 4/10; tw2 10:22 Body Mass Index 28.35 (70.31 kg, 157.48 cm) hb ED Course: 10:12 Patient arrived in ED. mr 10:15 Mj De Paz MD is Attending Physician. birdie 10:15 Bed in low position. Call light in reach. Pulse ox on. NIBP on. tw2 10:24 Triage completed. hb 10:24 Arm band placed on. hb 10:31 Misa Cueva RN is Primary Nurse. tw2 12:[address] via wheelchair. [email or web address] 12:13 Initial lab(s) drawn, by me, sent to lab. Inserted saline lock: 22 gauge in right dh3 antecubital area, using aseptic technique. Blood collected. 12:42 CT Lumbar Spine Wo Con In Process Unspecified. EDMS 13:48 Ender Lopez MD is Referral Physician. [facility] 14:13 No provider procedures requiring assistance completed. IV discontinued, intact, tw2 bleeding controlled, No redness/swelling at site. Pressure dressing applied. Administered Medications: 12:15 Drug: NS 0.9% 500 ml Route: IV; Rate: bolus; Site: right antecubital; tw2 14:02 Follow up: Response: No adverse reaction; IV Status: Completed infusion; IV Intake: tw2 500ml 12:15 Drug: Zofran (Ondansetron) 4 mg Route: IVP; Site: right antecubital; tw2 14:09 Follow up: Response: No adverse reaction tw2 12:17 Drug: morphine 2 mg {Note: RASS 0.} Route: IVP; Site: right antecubital; tw2 13:30 Drug: morphine 2 mg {Note: RASS 0.} Route: IVP; Site: right antecubital; tw2 14:08 Follow up: Response: No adverse reaction; Pain is decreased; RASS: Alert and Calm (0); tw2 1 ml 14:04 Drug: Rocephin 1 grams Route: IV; Rate: per protocol; Site: right antecubital; tw2 14:10 Follow up: Response: No adverse reaction; IV Status: Completed infusion; IV Intake: [id number] Intake: 14:02 IV: 500ml; Total: 500ml. tw2 14:10 IV: 10ml; Total: 510ml. tw2 Outcome: 13:49 Discharge ordered by . birdie 14:13 Discharged to home ambulatory. tw2 14:13 Condition: stable 14:13 Discharge instructions given to patient, Instructed on discharge instructions, follow up and referral plans. medication usage, Demonstrated understanding of instructions, follow-up care, medications, Prescriptions given X 3. 14:14 Patient left the ED. tw2 Signatures: Dispatcher [employer] EDPA Mj De Paz MD MD cha Rivera, Mary mr Baxter, Heather, RN RN Misa Cueva RN RN tw2 Zandra Henry [facility] Daniel
[2020-03-08] MEDS ORDERED: CEFTRIAXONE/SWI 1gm 1 GM/10 ML SYR ONE (14:17)
[2020-03-08 15:25] VITALS: TEMP 99
[2020-03-08 15:28] VITALS: O2SAT 98
[2020-03-08 15:32] VITALS: BP 153/78
== END 2020-03-08 14:14 | disposition home or self-care (01) ==
LOC: ER 10:07
DX: N39.0 Urinary tract infection, site not specified (principal); S22.089A Unspecified fracture of T11-T12 vertebra, initial encounter for closed fracture; Z88.5 Allergy status to narcotic agent; Z91.041 Radiographic dye allergy status
CPT/HCPCS: 96361; 87088; 85025; 87086; 80048; 36415; 80076; 81003; 83690; 72131; 96375; 96374; 99284; J2270 ×2; J0696; J7040; J2405

== ENCOUNTER 2020-08-20 09:38 | Emergency (ER) | payer OTHER ==
--- OUTSIDE RECORDS SUMMARY | 2020-08-20 09:44 | XMS REPORT | Continuity of Care Document ---
:1940 Author Organization [facility] t Address [address] [place] [address] Care Team Providers Name Role Phone CAILX Primary Care Physician Unavailable SYSTEM, NOT IN Attending Clinician Unavailable Bradley Bae MD Attending Clinician Chung Fuentes MD Attending Clinician Only, Test Attending Clinician Unavailable Doctor Unassigned, Name Attending Clinician Unavailable Prabha HEARD Attending Clinician DAVID Attending Clinician Unavailable David GOMES Attending Clinician FIFI Attending Clinician Unavailable Fifi HEARD Attending Clinician BALAJI VALERO Attending Clinician Unavailable Balaji Valero MD Attending Clinician Earl Crespo RN, Angélica Attending Clinician Unavailable Nikia Dockery MD Attending Clinician Rosendo Morris MD Attending Clinician Unavailable Noel Attending Clinician Unavailable Gurpreet Guzman MD Attending Clinician Margarito RUTHERFORD Attending Clinician Unavailable GREGOR Attending Clinician Unavailable ARCELIA Attending Clinician Unavailable GLADIS Attending Clinician Unavailable Clive Davies Attending Clinician Neeraj Leon Jr Attending Clinician Chung Fuentes MD Admitting Clinician KATHYA Admitting Clinician Unavailable Get Chun Admitting Clinician Payers Payer Name Policy Type Policy Effective Date Expiration Date Sour ce Number MEDICAREMEDICARE PART [id number] 2005 Rhys chelo Angélica AND 00:00:00 Confucianism [id number] 2005- [place] [id number] 2018 [place] MUTUALPHYSICIANS 00:00:00 Methodis t [id number] 19-PresentCommercial MEDICAREMEDICARE PART [id number] 2005 MD Baldev Lindsay AND 00:00:00 [id number] 2005- [id number] [place] GENERICGENERIC [id number] 2005 MD Juancarlos abdi MEDICARE 00:00:00 SUP-SECONDARY [id number] 6-PresentPPO Problems Condition Condition Condition Status Onset Resolution Last Treating Co mments Source Name Details Category Date Date Treatment Clinician Date Malignant Malignant Disease Active 2019-04 lymphoma - lymphoma - 06-20 An derso small small 00:00: n lymphocyti lymphocyti 00 c c Pseudophak Pseudophak Disease Active Overview : [place] ia, left ia, left 11-07 Formattin Met hodi eye eye 00:00: g of this note might be different from the original. 11/08/19Ph aco iol ospcboo +26.5 d monovisio nPCO - s/p CAPSULOTO MY Pseudophak Pseudophak Disease Active Overview : [place] ia, right ia, right 6 Formattin M ethodi eye eye 00:00: g of this note might be different from the original. Phaco iol od09/27/19P CBOO +24 dDEXTENZA IMPLANT, R LOWER CANALICUL US20/20 SUBDURAL Condition Active 2014-12-29 M emoria HEMATOMA 8- 13:05:10 l SUBDURAL 00:00: Peng n HEMATOMA 00 Active 12/16/2014 Condition 5 [facility] ACUTE ON Diagnosis Active 2015-01-31 M emoria 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 00:00: Herm abbie MIDLINE CHRONIC 00 SHIFT SDH WITH MIDLINE SHIFT Active 12/12/2014 [facility] AP Diagnosis Active 2014-12-12 Mem oria 12-12 10:33:00 l AP 00:00: Romain 00 Active 12/12/2014 [facility] MARY CARMEN Diagnosis Active 2014-12-13 Memoria BILLIGN 12-12 10:10:00 l 00:00: Romain MARY CARMEN 00 BILLIGN Active 12/12/2014 [facility] Closed Closed Problem Active Univers displaced displaced HL7.CCDAR2 ity of fracture fracture [place] of neck of of neck of Ph ysici right right ans radius radius with with routine routine healing healing SUBDURAL Diagnosis Active 2015-01-31 M emoria HEMORRHAGE 21:55:00 l SUBDURAL Peng n HEMORRHAGE Active [facility] Closed Closed Problem Active Univers disp fx of disp fx of HL7.CCDAR2 ity of coronoid coronoid [place] process of process of Ph ysici left ulna left ulna ans with with routine routine healing healing Closed Closed Problem Active Univers Monteggia' Monteggia' HL7.CCDAR2 [place] of [place] of right of right Physic i ulna with ulna with ans routine routine healing healing Closed Closed Problem Active Univers posterior posterior HL7.CCDAR2 [place] of [place] of n of Physici elbow, elbow, ans left, left, subsequent subsequent encounter encounter Fall on Fall on Problem Active Univers same same HL7.CCDAR2 ity of level, level, [place] subsequent subsequent Ph ysici encounter encounter ans Streptococ Streptococ Problem Active M atagor rosy sore rosy Sore da throat [facility] Viral Viral Problem Active [facility] Tinnitus Tinnitus Problem Active [facility] Otalgia Otalgia Problem Active [facility] Acute Acute Problem Active [facility] bronchitis [facility]itis [facility] Rhinitis Rhinitis Problem Active [facility] Erythema Erythema Problem Active [facility] On On Problem Active [facility] examinatio Examinatio da n - n - Medical hoarseness Hoarseness Gr oup Dysphasia Dysphasia Problem Active [facility] Reflux Reflux Problem Active [facility] Hypertroph Hypertroph Problem Active M atagor y of nasal y of Nasal da turbinates Turbinates Me dical Group 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-09 2019-11-09 [place] sclerotic sclerotic d 6-02 00:00:00 09:40:47 Methodi cataract, cataract, 00:00: st left left 00 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 2019-11-09 [place] forms of forms of d 00:00:00 09:40:55 Me thodi age-relate age-relate st d d cataract, cataract, left eye left eye Allergies, Adverse Reactions, Alerts Allergy Allergy Status Severity Reaction(s) Onset Inactive Treating Comm ents Source Name Type Date Date Clinician Sulfa Propensi Active Hives, Rash, 2019-04 Ho chelo (Sulfona ty to Swelling 2-29 Method i mide adverse 00:00: st Antibiot reaction 00 ics) s to drug Dye Propensi Active Rash IV [place] ty to 3-05 constrast Methodi adverse 00:00: dye st reaction 00 s to drug Codeine Propensi Active GI [place] ty to Intolerance 9-03 Metho di adverse 00:00: st reaction 00 s to drug Barbital Propensi Active Unknown [place] on ty to Reaction 8-11 Methodi adverse 00:00: st reaction 00 s to drug Barbitur Propensi Active Itching, [place] ates ty to Other (See 8-11 Method i adverse Comments), 00:00: st reaction Rash 00 s to drug barbitur barbitur Active Memori a ates ates l [place] Codeine Allergy Active [facility] Family History Family Member Diagnosis Comments Start Date Stop Date Source Natural brother Bladder Cancer MD Malika valera Natural brother Colon cancer MD Dominic davis Natural father Bladder Cancer And yi Social History Social Habit Start Date Stop Date Quantity Comments Source Exposure to Not sure [place] Metho dist SARS-CoV-2 (event) Sex Assigned At MD Martinez on Tobacco use and 2020-05-09 2020-05-09 Never used MD Martinez on exposure 00:00:00 00:00:00 Alcohol intake 2020-05-09 2020-05-09 Ex-drinker MD Juancarlos abdi 00:00:00 00:00:00 (finding) Tobacco Comment 2019-07-01 2019-07-01 late was Garfield Ortiz 00:00:00 00:00:00 a smoker Smoking Status Start Date Stop Date Source Never smoker MD De Paz Medications Ordered Filled Start Stop Current Ordering Indication Dosage Frequency Signature Comments Components Source Medication Medication Date Date Medication? Clinician (SIG) Name Name cefdinir Yes Q12H every 12 [place] on (OMNICEF) 3-31 (twelve) Method i 300 MG 10:31: hours. st capsule 23 predniSONE Yes prednisone [place] (DELTASONE) 3-31 20 mg Methodi 20 mg 10:31: tablet st tablet 23 Take one tablet by mouth bid for 5 days with meals then once a day for 5 days with meals ciprofloxac Yes 500mg Q.5D Take 500 [place] in (CIPRO) 3-08 mg by Methodi 500 MG 00:00: mouth 2 st tablet 00 (two) times a day. for 10 days - ibandronate Yes See Admin [place] (BONIVA) 3-02 Instructio Metho di 150 mg 00:00: ns. st tablet 00 ibandronate 2021- Yes 150mg Take 150 [place] (BONIVA) 2-11 02-11 mg by Methodi 150 mg 00:00: 23:[address] tablet 00 :00 HYDROcodone 2019-04 Yes 1{tbl} Take 1 MD -acetaminop 2-15 tablet by And true jay (NORCO) 00:00: mouth n 10 mg-325 00 every 8 mg per (eight) tablet hours as needed. methocarbam 2019-04 Yes 1{tbl} Take 1 [place] oL 1-23 tablet by Methodi (ROBAXIN) 00:00: mouth. st 500 MG 00 tablet methocarbam 2019- Yes 1{tbl} Take 1 MD ol 1-23 tablet by Anderso (ROBAXIN) 00:00: mouth n 500 mg 00 every 6 tablet (six) hours as needed. diphenhydrA 2019-04 Yes 1{tbl} QD Take 1 [place] MINE-acetam 0-14 tablet by Met silvana inophen 10:54: mouth st (TYLENOL PM 35 nightly as EXTRA needed for STRENGTH) sleep. 25-500 mg tablet cholecalcif Yes 1{capsu Take 1 [place] jonh, 7-14 le} capsule by Methodi vitamin D3, 08:41: mouth. st 50 mcg 33 (2,000 unit) capsule capsule promethazin Yes 12.5mg Take 12.5 [place] e 8-11 mg by Methodi (PHENERGAN) 00:00: mouth. st 12.5 MG 00 tablet B-12 CAPS Yes Memoria - l 00:00: Romain 00 cyanocobala Yes [place] min, 12-29 Methodi vitamin 00:00: st B-12, 3,000 00 mcg capsule senna 8.6 Yes 8.6 mg = 1 Me moria mg oral 8-20 tab, PO, l tablet 20:13: Bedtime, PRN Constipati on, 0 Refill(s) Levetiracet Yes [...] 8-19 not exceed l 14:52: 4 gm/day. (Same as: Tylenol) heparin No Notes: Memoria 8-19 porcine l 13:00: heparin Neutra-Phos No Notes: Fabián hoa 8-18 (Same as: l 16:30: Neutra-Jyoti [place] 00 s) Each 1.25 gm pkt has 250mg phosphorou s. Mix w/2.5oz water and stir. Docusate No Notes: Memoria 8-18 (Same as: l 14:00: Colace) [place] (Do Not Crush) Acetaminoph No Notes: Max Memoria en 12-13 acetaminop l 13:51: hen = 4000 [place] 00 mg/day (4 gm/day). (Same as: Tylenol) Oxycodone No Notes: Memori a Hydrochlori 12-13 (Same as: l de 5 MG 13:51: Roxicodone Herm abbie Oral Tablet ) calcium No 3,000 mg, Memor ia gluconate + 12-13 30 mL, l Sodium 11:00: Route: Romain Chloride 00 IVPB, 0.9% IV 100 ONCE, mL Start date: 12/13/14 6:00:00, Stop date: 12/13/14 6:00:00 potassium No Notes: Memori a phosphate + 12-13 (Same as: l Sodium 11:00: K [place] Chloride 00 Phosphate. 0.9% IV 250 ) 1 mMol mL phoshate has 1.47 mEq potassium Infuse over 4 hours magnesium No 2 gm, 50 Fabián hoa sulfate 8-18 mL, Route: l 11:00: IVPB, Drug Romain 00 form: INJ, Q2H, Start date: 12/13/14 6:00:00, Duration: 2 doses or times, Stop date: 12/13/14 8:00:00 Saline No Notes: Memoria Flush 0.9% 12-13 (Same as: l 02:00: BD Romain Posiflush) Docusate No Notes: Memoria 8-18 (Same as: l 02:00: Colace) Romain 00 sennosides, No Notes: Fabián hoa [facility] 18 (Same as: l 02:00: Senokot) [place] 00 Levetiracet No Notes: Fabián hoa am 18 (Same l 02:00: as:Keppra) [place] Zofran No Notes: Memoria 8-17 (Same as: l 21:57: Zofran) [place] 00 senna 8.6 No Notes: Memori a mg oral -17 (Same as: l tablet 21:47: Senokot) NS 1,000 mL No 1,000 mL, M emoria 12-12 Rate: 75 l 21:46: ml/hr, Infuse over: 13.3 hr, Route: IV, Dosing Weight 70.455 kg, Total Volume: 1,000, Start date: 12/12/14 16:46:00, Duration: 30 day, Stop date: 01/11/15 16:45:00 Acetaminoph No Notes: Fabián hoa en 325 MG / 12-12 (Same as: l Hydrocodone 21:00: [place] nn Bitartrate 00 325/10) 10 MG [...] Memori a 12-12 (Same As: l 20:00: Ancef Kefzol) MEDICATION WASTE Product Size: 1000 mg Product Wasted: ___ mg Dextrose No 25 gm, 50 Fabián hoa 50% Syringe 8-17 mL, Route: l 19:52: IVP, Drug Form: INJ, Dosing Weight 70.455, kg, PRN, PRN Abnormal Lab Result, Start date: 12/12/14 14:52:00, Duration: 30 day, Stop date: 01/11/15 14:51:00 Regular No 60 Memoria Insulin, 8-17 units) l Human 100 19:52: Stable for He rmann UNT/ML 00 28 days at Injectable room Solution temperatur e Expires in days from ____Date Saline No Notes: Memoria Flush 0.9% 12-12 (Same as: l 19:52: BD [place] 00 Posiflush) Ondansetron No Notes: Fabián hoa 12-12 (Same as: l 19:52: Zofran) [place] MEDICATION WASTE Product Size: 4 mg Product Wasted: _0__ mg Acetaminoph No Notes: Fabián hoa en 325 MG / 12-12 (Same as: l Hydrocodone 19:52: [place] nn Bitartrate 00 325/10) 10 MG Oral Tablet ceFAZolin No Route: Memori a (SCIP) 12-12 IVP, ONCE, l 18:32: Dosing Romain 00 Weight 70.455, kg, Start date: 12/12/14 13:32:00, Stop date: 12/12/14 13:32:00 Cardene 40 No Notes: Memor ia mg in NS 12-12 Same as: l 200 ml IV 16:02: Cardene Daly nn 40 mg 00 Concentrat ion: (0.2 mg /1 ml ) Aspirin 81 No Notes: Do Me moria MG Enteric 12-12 not crush l Coated 16:02: or chew. [place] Tablet 00 (Same As: Ecotrin) cefdinir cefdinir [...] No Vitamin D3 [facility] Immunizations Ordered Immunization Filled Immunization Date Status Commen ts Source Name Name Tdap 2017-08-27 Completed MD De Paz 00:00:00 Vital Signs Vital Name Observation Time Observation Value Comments Source WEIGHT 2020-05-09 15:11:33 64.1 kg WEIGHT 2020-05-09 15:11:33 64.1 kg HEIGHT 2020-04-25 14:14:26 158.5 cm WEIGHT 2020-04-25 14:14:26 64 kg HEIGHT 2020-04-25 14:14:26 158.5 cm WEIGHT 2020-04-25 14:14:26 64 kg BP Diastolic 2018-12-10 00:00:00 81 mm[Hg] [facility] Height 2018-12-10 00:00:00 62 [in_i] [facility] BMI (Body Mass 2018-12-10 00:00:00 27.6 kg/m2 [facility] BP Systolic 2018-12-10 00:00:00 136 mm[Hg] [facility] Body Weight 2018-12-10 00:00:00 151 [lb_av] [facility] Systolic blood 2020-05-09 21:11:33 155 mm[Hg] pressure Diastolic blood 2020-05-09 21:11:33 89 mm[Hg] MD Malika baconson pressure Heart rate 2020-05-09 21:11:33 77 /min MD Efrem rowell Body temperature 2020-05-09 21:11:33 36.72 Connie MD Angélica sethirson Respiratory rate 2020-05-09 21:11:33 16 /min MD Angélica jainon Body weight 2020-05-09 21:11:33 64.1 kg MD Topete son BMI 2020-05-09 21:11:33 26.34 kg/m2 MD Efrem rowell Oxygen saturation in 2020-05-09 21:11:33 97 /min MD De Paz Arterial blood by Pulse oximetry Body height 2020-05-02 18:20:00 156 cm MD Efrem rowell Systolic blood 2019-11-08 10:45:00 149 mm[Hg] Geethato n Confucianism pressure Diastolic blood 2019-11-08 10:45:00 70 mm[Hg] Morgan on Confucianism pressure Heart rate 2019-11-08 10:45:00 86 /min [place] Confucianism Body temperature 2019-11-08 10:45:00 36.33 Connie [place] Confucianism Respiratory rate 2019-11-08 10:45:00 15 /min [place] Confucianism Oxygen saturation in 2019-11-08 10:45:00 96 /min [place] Confucianism Arterial blood by Pulse oximetry Body height 2019-11-08 06:42:00 157.5 cm [place] Confucianism Body weight 2019-11-08 06:42:00 66.679 kg [place] Confucianism BMI 2019-11-08 06:42:00 26.89 kg/m2 [facility] Weight 2014-12-29 18:05:10 [facility] Romain Temperature Oral (F) 2014-12-29 18:05:10 98.3 F [facility] Romain Heart Rate 2014-12-29 18:05:10 [facility] [place] Systolic (mm Hg) 2014-12-29 18:05:10 Fabián rial [place] Diastolic (mm Hg) 2014-12-29 18:05:10 Mem orial [place] Height 2014-12-29 18:05:10 [facility] Romain Systolic (mm Hg) 2014-12-15 18:57:00 Fabián rial [place] Diastolic (mm Hg) 2014-12-15 18:57:00 Mem orial [place] Heart Rate 2014-12-15 18:57:00 [facility] Romain Temperature Oral (F) 2014-12-15 16:55:00 97.8 F [facility] [place] Systolic (mm Hg) 2014-12-15 16:55:00 Fabián rial Romain Diastolic (mm Hg) 2014-12-15 16:55:00 Mem orial [place] Respitory Rate 2014-12-15 16:55:00 Memori al [place] Heart Rate 2014-12-15 16:55:00 [facility] Romain Temperature Oral (F) 2014-12-15 13:36:00 98.9 F [facility] [place] Heart Rate 2014-12-15 13:36:00 [facility] [place] Systolic (mm Hg) 2014-12-15 13:36:00 Fabián rial [place] Diastolic (mm Hg) 2014-12-15 13:36:00 Mem orial Romain Respitory Rate 2014-12-15 13:36:00 Memori al [place] Respitory Rate 2014-12-15 08:07:00 [facility] Temperature Oral (F) 2014-12-15 08:07:00 98.2 F [facility] Height 2014-12-12 15:48:00 160.02 cm [facility] BMI Calculated 2014-12-12 15:48:00 [facility] Weight 2014-12-12 15:48:00 [facility] Procedures Procedure Date / Time Performing Clinician Source Performed COMPLETE BLOOD COUNT W/ 2020-05-09 19:42:00 Cheikh Hernnadez MD nderson DIFFERENTIAL COMPREHENSIVE METABOLIC 2020-05-09 19:42:00 Cheihk Hernandez MD nderson PANEL LACTATE DEHYDROGENASE 2020-05-09 19:42:00 Cheikh Hernandez MD And erson MAGNESIUM LEVEL 2020-05-09 19:42:00 Cheikh Hernandez MD URIC ACID 2020-05-09 19:42:00 Cheikh Hernandez MD PHOSPHORUS LEVEL 2020-05-09 19:42:00 Cheikh Hernandez MD TYPE AND SCREEN 2020-05-09 19:42:00 Cheikh Hernandez MD Results CBC 2020-05-09 19:42:00 Cheikh Hernandez MD MANUAL DIFFERENTIAL 2020-05-09 19:42:00 Cheikh Hernandez MD Efrem son GLUCOSE LEVEL 2020-05-09 19:42:00 Cheikh Hernandez MD BLOOD UREA NITROGEN 2020-05-09 19:42:00 Cheikh Hernandez MD Efrem son ELECTROLYTE PANEL 2020-05-09 19:42:00 Cheikh Hernandez MD Anderso n SERUM CREATININE 2020-05-09 19:42:00 Cheikh Hernandez MD .GLOMERULAR FILTRATION 2020-05-09 19:42:00 Cheikh Hernandez MD derson RATE CALCIUM LEVEL TOTAL 2020-05-09 19:42:00 Cheikh Hernandez MD Efrem son ALBUMIN LEVEL 2020-05-09 19:42:00 Cheikh Hernandez MD ALKALINE PHOSPHATASE 2020-05-09 19:42:00 Cheikh Hernandeze rson ALANINE AMINOTRANSFERASE 2020-05-09 19:42:00 Cheikh Hernandez MD ASPARTATE AMINOTRANSFERASE 2020-05-09 19:42:00 Cheikh Hernandez TOTAL PROTEIN 2020-05-09 19:42:00 Cheikh Hernandez MD FRACTIONATED BILIRUBIN 2020-05-09 19:42:00 Cheikh Hernandez MD derson ABORH 2020-05-09 19:42:00 Cheikh Hernandez MD ANTIBODY SCREEN 2020-05-09 19:42:00 Cheikh Hernandez MD CLOT EXPIRATION DATE 2020-05-09 19:42:00 Cheikh Hernandez MD Dominic rson TMP INTERPRETATION 2020-05-09 19:42:00 Cheikh Hernandez MD on ANTIBODY SCREEN NEGATIVE PETCT WB INITIAL TREATMENT 2020-05-02 20:24:00 Cheikh Hernandez STRATEGY POC GLUCOSE SCREEN 2020-05-02 18:15:00 Cheikh Hernandez MD on COMPLETE BLOOD COUNT W/ 2020-05-02 17:26:00 Cheikh Hernandez MD nderson DIFFERENTIAL COMPREHENSIVE METABOLIC 2020-05-02 17:26:00 Cheikh Hernandez MD nderson PANEL LACTATE DEHYDROGENASE 2020-05-02 17:26:00 Cheikh Hernandez MD And erson MAGNESIUM LEVEL 2020-05-02 17:26:00 Cheikh Hernandez MD URIC ACID 2020-05-02 17:26:00 Cheikh Hernandez MD PHOSPHORUS LEVEL 2020-05-02 17:26:00 Cheikh Hernandez MD BETA 2 MICROGLOBULIN 2020-05-02 17:26:00 Cheikh Hernandez MD Dominic rson PROTHROMBIN TIME 2020-05-02 17:26:00 Cheikh Hernandez MD PARTIAL THROMBOPLASTIN 2020-05-02 17:26:00 Cheikh Hernandez MD TIME FREE THYROXINE 2020-05-02 17:26:00 Cheikh Hernandez MD THYROID STIMULATING 2020-05-02 17:26:00 Cheikh Hernandez MD Efrem son HORMONE VITAMIN D 25 HYDROXY LEVEL 2020-05-02 17:26:00 Cheikh Hernandez IMMUNOGLOBULIN G SERUM 2020-05-02 17:26:00 Cheikh Hernandez MD PROTEIN ELECTROPHORESIS, 2020-05-02 17:26:00 Cheikh Hernandez MD SERUM IMMUNOFIXATION 2020-05-02 17:26:00 Cheikh Hernandez MD ELECTROPHORESIS TYPE AND SCREEN 2020-05-02 17:26:00 Cheikh Hernandez MD HEPATITIS B SURFACE 2020-05-02 17:26:00 Cheikh Hernandez MD Efrem son ANTIGEN, SERUM HEPATITIS B CORE ANTIBODY 2020-05-02 17:26:00 Cheikh Hernandez MD HEPATITIS C VIRUS ANTIBODY 2020-05-02 17:26:00 Cheikh Hernandez HC HIV 1/2 AG AND AB 4TH 2020-05-02 17:26:00 Cheikh Hernandez MD GEN HP FC FLOW CYTOMETRY BLOOD 2020-05-02 17:26:00 Cheikh Hernandez COLLECTION HP CYTOGENETICS BLOOD 2020-05-02 17:26:00 Cheikh Hernandez MD And erson COLLECTION HP MOLECULAR BLOOD 2020-05-02 17:26:00 Cheikh Hernandez MD Juan on COLLECTION Results CBC 2020-05-02 17:26:00 Cheikh Hernandez MD MANUAL DIFFERENTIAL 2020-05-02 17:26:00 Cheikh Hernandez MD Efrem [facility] GLUCOSE LEVEL 2020-05-02 17:26:00 Cheikh Hernandez MD BLOOD UREA NITROGEN 2020-05-02 17:26:00 Cheikh Hernandez MD Efrem son ELECTROLYTE PANEL 2020-05-02 17:26:00 Cheikh Hernandez MDo n SERUM CREATININE 2020-05-02 17:26:00 Cheikh Hernandez MD .GLOMERULAR FILTRATION 2020-05-02 17:26:00 Cheikh Hernandez MD RATE CALCIUM LEVEL TOTAL 2020-05-02 17:26:00 Cheikh Hernandez MD Efrem [facility] ALBUMIN LEVEL 2020-05-02 17:26:00 Cheikh Hernandez MD ALKALINE PHOSPHATASE 2020-05-02 17:26:00 Cheikh Hernandez MD Dominic rson ALANINE AMINOTRANSFERASE 2020-05-02 17:26:00 Cheikh Hernandez MD ASPARTATE AMINOTRANSFERASE 2020-05-02 17:26:00 Cheikh Hernandez TOTAL PROTEIN 2020-05-02 17:26:00 Cheikh Hernandez MD FRACTIONATED BILIRUBIN 2020-05-02 17:26:00 Cheikh Hernandez MD derson ABORH 2020-05-02 17:26:00 Cheikh Hernandez MD ANTIBODY SCREEN 2020-05-02 17:26:00 Cheikh Hernandez MD HC REF HEPATITIS BC AB, 2020-05-02 17:26:00 Cheikh Hernandez MD A nderson IGG & IGM HEPATITIS B SURFACE AG 2020-05-02 17:26:00 Cheikh Hernandez MD An derson W/CONFIRM HEPATITIS C VIRUS AB 2020-05-02 17:26:00 Cheikh Hernandez MD Dominic rson SCREEN W/REFLEX HCV PCR HP CG CHROMOSOME ANALYSIS 2020-05-02 17:26:00 Cheikh Hernandez MD FINAL REPORT HP CG CLL FISH PANEL FINAL 2020-05-02 17:26:00 Cheikh Hernandez REPORT CLOT EXPIRATION DATE 2020-05-02 17:26:00 Cheikh Hernandez MD Dominic rson TMP INTERPRETATION 2020-05-02 17:26:00 Cheikh Hernandez MD Juan on ANTIBODY SCREEN NEGATIVE TMP HIV 1/2 AG&AB PATH 2020-05-02 17:26:00 Cheikh Heranndez MD An jordison INTERP HP MD TP53 SEQUENCING 2020-05-02 17:26:00 Cheikh Hernandez MD And erson ANALYSIS REPORT HP FC LYMPHOMA B FINAL 2020-05-02 17:26:00 Cheikh Hernandez MDson REPORT CONFIRM ABORH TYPE 2020-05-02 17:12:00 Cheikh Hernandez MD Juan on HC 2019-NCOV COVID-19 2020-04-23 16:40:00 Jolanta Calix MD And erson PATHOLOGY OUTSIDE 2020-03-20 00:00:00 René Morris MDson INTERPRETATION OSI CT SPINE 2020-03-08 13:18:59 Jolanta Calix MD YAG CAPSULOTOMY - OS - 2020-02-09 12:31:41 Emma Bae on Confucianism LEFT EYE Michelle PHACOEMULSIFICATION, 2019-11-08 09:17:00 Emma Bae CATARACT, WITH IOL Michelle IMPLANTATION PHACOEMULSIFICATION, 2019-09-27 07:35:00 Emma Bae CATARACT, WITH IOL Michelle IMPLANTATION CORNEAL TOPOGRAPHY - OU - 2019-09-15 12:27:28 Emma Baeist BOTH EYES Michelle IOL BIOMETRY - OU - BOTH 2019-09-15 12:27:25 Emma Bae Confucianism EYES Michelle TYMPANOMETRY 2018-12-10 00:00:00 [facility] [U] XRAY ELBOW MIN 3 VWS 2018-01-09 00:00:00 [facility] [place] RIGHT [id number] Physicians [U] XRAY ELBOW MIN 3 VWS 2017-11-13 00:00:00 [facility] [place] RIGHT 07377 Physicians [U] XRAY ELBOW MIN 3 S 2017-10-02 00:00:00 [facility] [place] RIGHT 45658 Physicians [U] XRAY ELBOW MIN 3 S 2017-09-09 00:00:00 [facility] [place] RIGHT 10112 Physicians Bladder operation [facility] Procedure on Ulna [facility] Cholecyst[facility] Anesth Hyste[facility] Plan of Care Planned Activity Planned Date Details Comments Source Future Scheduled 2020-11-26 INFLUENZA VACCINE [place] [facility] Test 00:00:00 [code = INFLUENZA VACCINE] Future Scheduled 1990 SHINGLES VACCINES (#1) [place] [facility] Test 00:00:00 [code = SHINGLES VACCINES (#1)] Future Scheduled 1958 Hepatitis C screening [place] [facility] Test 00:00:00 (procedure) [code = 246394651] Future Scheduled 1956 COVID-19 VACCINE (1) [place] [facility] Test 00:00:00 [code = COVID-19 VACCINE (1)] Future Scheduled 1946 65+ PNEUMOCOCCAL [place] [facility] Test 00:00:00 VACCINE (1 of 4 - PCV13) [code = 65+ PNEUMOCOCCAL VACCINE (1 of 4 - PCV13)] Encounters Start End Encounter Admission Attending Care Care Encounter Source Date/Time Date/Time Type Type Clinicians Facility Department ID 2020-04-11 Outpatient SYSTEM, SAM VARGAS [id number] 08:38:41 PROVIDER Juan abdi 2020-04-04 Outpatient [facility] [address] [facility] 13:16:38 2020-07-26 2020-07-26 Outpatient EMMA BAE [facility] [id number] [place] 00:00:00 00:00:[address] 2020-07-19 2020-07-19 [facility] [id number] 07:13:00 09:54:00 Encounter eAliyah Juan Francisco [id number] [place] [id number] [facility] [id number] [place] 071 2020-07-18 2020-07-18 Laboratory Only, [place] [id number] 10:34:26 10:49:26 Only Test [place] [id number] [place] [id number] [place] [id number] 2020-07-18 2020-07-18 Orders Doctor [facility] [id number] 00:00:00 00:00:00 Only Unassigned, ZOE [id number] [place] [facility] [id number] 009 2020-05-09 2020-05-09 Outpatient VIC HERNANDEZ MDA MDA [id number] 13:03:57 23:59:00 CHEIKH abdi 2020-05-09 2020-05-09 Outpatient EL CALIX, MDA MDA [id number] 14:38:51 18:47:49 JOLANTA abdi 2020-05-03 2020-05-03 Outpatient CALIX, MDA MDA [id number] 06:14:33 06:14:33 JOLANTA abdi 2020-05-03 2020-05-03 Outpatient CALIX, MDA MDA [id number] 06:14:29 06:14:29 JOLANTA abdi 2020-05-03 2020-05-03 Outpatient CALIX, MDA MDA [id number] 06:14:26 06:14:26 JOLANTA abdi 2020-05-03 2020-05-03 Outpatient CALIX, MDA MDA [id number] 06:14:24 06:14:24 JOLANTA abdi 2020-05-02 2020-05-02 Outpatient VIC VALERO, MDA MDA [id number] 10:44:00 23:59:00 Cara abdi 2020-05-02 2020-05-02 Outpatient VIC HERNANDEZ, MDA MDA [id number] MD 11:33:34 11:33:34 MELITACHRISTIANO Jaimeers o n 2020-05-02 2020-05-02 Outpatient EL DAVID, MDA MDA [id number] MD 10:30:00 10:43:00 CHEIKH Jaimeers o n 2020-04-25 2020-04-25 Outpatient EL DAVID, MDA MDA [id number] MD 16:30:00 23:59:00 CHEIKH Jaimeers o n 2020-04-25 2020-04-25 Outpatient EL CALIX, MDA MDA [id number] MD 12:48:26 16:45:23 JOLANTA Jaimeers o n 2020-04-25 2020-04-25 Outpatient EL MDA MDA [id number] MD 12:47:21 12:47:52 Juan o n 2020-04-23 2020-04-23 Outpatient EL CALIX, MDA MDA [id number] MD 10:35:04 10:35:04 JOLANTA Jaimeers o n 2020-04-13 2020-04-13 Outpatient CALIX, MDA MDA [id number] 04:51:16 04:51:16 JOLANTA Jaimeers o n 2020-04-13 2020-04-13 Outpatient CALIX, MDA MDA [id number] MD 04:51:13 04:51:13 JOLANTA Jaimeers o n 2020-04-13 2020-04-13 Outpatient CALIX, MDA MDA [id number] MD 04:51:11 04:51:11 JOLANTA Jaimeers o n 2020-04-13 2020-04-13 Outpatient CALIX, MDA MDA [id number] MD 04:51:10 04:51:10 JOLANTA Jaimeers o n 2020-04-13 2020-04-13 Outpatient CALIX, MDA MDA [id number] MD 04:51:09 04:51:09 JOLANTA Juan o n 2020-04-13 2020-04-13 Outpatient CALIX, MDA MDA [id number] MD 04:51:08 04:51:08 JOLANTA Juan o n 2020-04-13 2020-04-13 Outpatient CALIX, MDA MDA [id number] MD 04:51:07 04:51:07 JOLANTA Juan o n 2020-04-13 2020-04-13 Outpatient CALIX, MDA MDA [id number] MD 04:51:05 04:51:05 JOLANTA Juan o n 2020-04-13 2020-04-13 Outpatient CALIX, MDA MDA [id number] MD 04:51:03 04:51:03 JOLANTA Juan o n 2020-04-13 2020-04-13 Outpatient CALIX, MDA MDA [id number] MD 04:51:03 04:51:03 JOLANTA Juan o n 2020-04-13 2020-04-13 Outpatient CALIX, MDA MDA [id number] MD 04:51:02 04:51:02 JOLANTA Juan o n 2020-04-13 2020-04-13 Outpatient CALIX, MDA MDA [id number] MD 04:51:00 04:51:00 JOLANTA Juan o n 2020-04-13 2020-04-13 Outpatient CALIX, MDA MDA [id number] MD 04:50:57 04:50:57 JOLANTA Juan o n 2020-03-20 2020-03-20 Outpatient [facility] [id number] [facility] 05:51:00 05:51:00 2020-02-09 2020-02-09 Outpatient [facility] [id number] [place] 00:00:00 00:00:[address] 2020-02-09 2020-02-09 Outpatient KATHYA, EMMA [facility] [id number] [place] 00:00:00 00:00:[address] 2019-12-29 2019-12-29 Outpatient KATHYA, EMMA [facility] [id number] [place] 00:00:00 00:00:[address] 2019-11-24 2019-11-24 Outpatient KATHYA, EMMA [facility] [id number] [place] 00:00:00 00:00:[address] 2019-11-09 2019-11-09 Outpatient KATHYA, EMMA [facility] [id number] [place] 00:00:00 00:00:[address] 2019-11-08 2019-11-08 Outpatient KATHYA, EM[place] [id number] [place] 00:00:00 00:00:[address] 2019-10-28 2019-10-28 Outpatient KATHYA, EMMA [facility] [id number] [place] 00:00:00 00:00:[address] 2019-10-13 2019-10-13 Outpatient KATHYA, EMMA [facility] [id number] [place] 00:00:00 00:00:[address] 2019-09-27 2019-09-27 Outpatient KATHYA, EMMA [place] [id number] [place] 00:00:00 00:00:[address] 2019-09-15 2019-09-15 Outpatient KATHYA, EMMA [facility] [id number] [place] 00:00:00 00:00:[address] 2019-07-01 2019-07-01 Outpatient KATHYA, EMMA [facility] [id number] [place] 00:00:00 00:00:[address] 2018-12-23 2018-12-23 Emergency E [facility] [id number] [facility] 11:18:00 11:18:00 2018-12-10 2018-12-10 Palivela [facility] [place] - [id number] [facility]00 MD [place]: [address] [place], [place] - [address], Otolaryngol [place], og-[facility] [id number] , Ph. 2018-01-21 2018-01-21 Appointmen REGINE B[facility] [id number] Univers 11:15:00 11:15:00 t; REMINGTON BUNDY ity o f ANDREW, M.D. [place] [facility] 2017-11-19 2017-11-19 Appointmen REGINE PANIAGUA [facility] [id number] Univers 11:00:00 11:00:00 t; JAVIER PANIAGUA NP ity of [place]AM[place], NP [place] [facility] 2017-10-08 2017-10-08 Appointmen [facility] BUN[facility] [id number] Univers 13:15:00 13:15:00 t; REMINGTON BUNDY ity o f ANDREW, M.D. [place] [facility] 2017-09-10 2017-09-10 AppointREGINE Brennan [facility] [id number] Univers 13:45:00 13:45:00 t; REMINGTON BUNDY Orthopedics i ty dino MACEDO M.D. [facility] 2017-01-22 2017-01-22 Appointmen GLADIS, UTP UTP [id number] Univers 10:45:00 10:45:00 t; MAURO GRIFFITH of [facility] 2017-01-15 2017-01-15 Appointmen GLADIS, UTP UTP [id number] Univers 10:15:00 10:15:00 t; MAURO GRIFFITH of [facility] 2017-01-01 2017-01-01 Appointmen NASREENE, UTP UTP [id number] Univers 10:15:00 10:15:00 t; MAURO GRIFFITH of [facility] 2016-12-10 2016-12-10 Appointmen GLADIS, UTP UTP [id number] Univers 10:30:00 10:30:00 t; MAURO GRIFFITH of [facility] 2016-12-09 2016-12-09 Appointmen GLADIS, UTP UTP [id number] Univers 13:30:00 13:30:00 t; MAURO GRIFFITH of [facility] 2014-12-12 2014-12-15 Outpatient Samson [facility] [id number] 10:48:00 14:41:00 Phil Paras Clive 2014-12-12 2014-12-12 Outpatient Zion Leon [facility] [id number] 10:26:00 10:26:00 (Red) H 29 Results Test Description Test Time Test Comments Results Result Comments Source TMP Interpretation Antibody Screen Negative 2020-05-10 21:23 :33 Test Item Value Reference Range Interpretation Comme nts TMP At the present JAJA Auto miguelina, patient MD JUAN - 147 78Dictated by: JAJA MARTINEZ MD - [place] [id number] d Date/Time: 05.10.2020 15:23 PM ALLOY WEIGHER ABSC evidence of RBC Transcribed Date/Time: 05.10.2020 15:23 PM CSTElectronically Interp alloantibodies. Signed By: Amparo MARTINEZ MD - [id number] on 05.10.2020 15:23 PM (test code = 7535) MD De PazAntibody [id number] 23:11:11 Test Item Value Reference Range Interpretation Comments ABSC. (test code = 890-4) Negative ABSC MD De [id number] 23:11:10 Test Item Value Reference Range Interpretation Comments ABORh. (test code = 882-1) O POS MD De PazClot Expiration [id number] 23:11:06 Test Item Value Reference Range Interpretation Comments T & S Expiration (test code = 05/12/2020 5318) MD De PazFractionated [id number] 20:27:26 Test Item Value Reference Range Interpretation Comments Bili Total (test 0.4 mg/dL See_Comment Indocyanine Green (ICG) code = 5096) may cause false ly elevated biliru bin results. Total and direct bilirubin must not be measured from s amples containing indo cyanine green. False el evation of total bilirubin can be seen in patient s with IgG concentrations above 28 g/L. [Automate d message] The system Mumart generated this result transmitted ref erence range: <=1.2. T he reference range was not used to interpr et this result as normal/abnormal . Bili Direct (test <0.2 See_Comment Indocyanin e Green (ICG) code = 5094) may cause false ly elevated biliru bin results. Total and direct bilirubin must not be measured from s amples containing indo cyanine green. [Automat ed message] The sy stem which generated this result transmitted ref erence range: <=0.3 mg /dL. The reference range was not used to interpr et this result as normal/abnormal . Bili Indirect (test See Note 0-0.9 Unable t o calculate code = 5095) Indirect Biliru bin result due to some par ameters are outside rep ortable range MD De PazUric [id number] 20:27:25 Test Item Value Reference Range Interpretation Comments Uric Acid (test code = 7955) 4.7 mg/dL 2.4-5.7 MD De PazTotal [id number] 20:27:24 Test Item Value Reference Range Interpretation Comments Total Protein (test code = 7649) 7.5 g/dL 6.4-8.3 MD De PazPhosphorus [id number] 20:27:22 Test Item Value Reference Range Interpretation Comments Phosphorus (test code = 6817) 3.6 mg/dL 2.5-4.5 MD De PazGlomerular Filtration [id number] 20:27:21 Test Item Value Reference Range Interpretation Comments eGFR-AA (test code 99 See_Comment Normal eG FR: >= 60 = 8062) mL/min/1.73 m2N ote: The eGFR is calculated u sing the CKD-EPI equatio n. The eGFR declines with a ge. eGFR <60 mL/min/1.73 m2 is considered as "decreased". This equation should only be used for patients 18 and older. According to e National Kidney Foundati on's Kidney Disease Outcome Quality Initiative (KDO QI) classification and 2012 Kidney Disease Improving Global Outcomes (KDIGO) Clinical Practi ce Guideline, the stage of CK D should be categorized bas ed on estimated GFR. Stage Description GFR mL/min/1.73 m21 Normal or high GFR >=902 Mildly decrease d GFR 60-893a M ildly to moderately decr eased GFR 45-593b Moderat ronnell to severely decrea sed GFR 30-444 Severely decreased GFR 15-295 Kid yanet failure <15 [Automa samuel message] The system Mumart generated this result tra nsmitted reference range : >=60 mL/min/1.73 sq. m. The reference range was not used to interpret th is result as normal/abnormal . eGFR-YASMIN (test code 86 See_Comment Normal e GFR: >= 60 = 8063) mL/min/1.73 m2N ote: The eGFR is calculated u sing the CKD-EPI equatio n. The eGFR declines with a ge. eGFR <60 mL/min/1.73 m2 is considered as "decreased". This equation should only be used for patients 18 and older. According to th e National Kidney Foundati on's Kidney Disease Outcome Quality Initiative (KDO QI) classification and 2012 Kidney Disease Improving Global Outcomes (KDIGO) Clinical Practi ce Guideline, the stage of CK D should be categorized bas ed on estimated GFR. Stage Description GFR mL/min/1.73 m21 Normal or high GFR >=902 Mildly decrease d GFR 60-893a M ildly to moderately decr eased GFR 45-593b Moderat ronnell to severely decrea sed GFR 30-444 Severely decreased GFR 15-295 Kid yanet failure <15 [Automa samuel message] The system Mumart generated this result tra nsmitted reference range : >=60 mL/min/1.73 sq. m. The reference range was not used to interpret th is result as normal/abnormal . MD De PazCalcium [id number] 20:27:20 Test Item Value Reference Range Interpretation Comments Calcium Lvl (test code = 5258) 9.7 mg/dL 8.4-10.2 MD De PazMagnesium [id number] 20:27:19 Test Item Value Reference Range Interpretation Comments Magnesium (test code = 6359) 2.1 mg/dL 1.6-2.6 MD De [id number] 20:27:18 Test Item Value Reference Range Interpretation Comments ALT (test code = 7 U/L See_Comment [Automated message] The 4705) system which ge nerated this result transmit samuel reference range : <=33. The reference range was not used to interpr et this result as reji l/abnormal. MD De PazCdjrkfxqGGX9907-51-44 20:27:17 Test Item Value Reference Range Interpretation Comments LDH (test code = 178 U/L 135-214 Results gre ater than 1651 6111) U/L may not be reliable due to matrix effec t with extended diluti on as it exceeds the man ufacturer s recommended l imit. Caution should be exercised when interpreti ng such values and done in conjunction wit h clinical context. MD De PazYhrrdrqsWVM0814-66-28 20:27:15 Test Item Value Reference Range Interpretation Comments BUN (test code = 5055) 9 mg/dL 6-23 MD De PazAlkaline [id number] 20:27:14 Test Item Value Reference Range Interpretation Comments Alk Phos (test code = 4768) 98 U/L 35-104 MD De PazGlucose [id number] 20:27:13 Test Item Value Reference Range Interpretation Comments Glucose Level (test 92 mg/dL 70-99 Effectiv e 11/22/15, the code = 5699) glucose referen ce intervals have been updated based o n [place] [employer] aria delines (Standards of M edical Care in Diabete s 2016. Diabetes Care 2 016; 39: S13-S22).Fastin g blood glucose:Normal: 70 99 mg/dLImpaire d fasting glucose (increa sed risk for diabetes or pre-diabetes): 100 125 mg/dLDiabet es mellitus: >/=1 26 mg/dL Random blood glucose:Normal: 70 199 mg/dLNote: Random glucose >100 mg /dL is associated with increased risk for diabetes MD De PazAlbumin [id number] 20:27:12 Test Item Value Reference Range Interpretation Comments Albumin Lvl (test code 4.4 See_Comment [Aut omated message] The = 9861) system which ge nerated this result tra nsmitted reference range : 3.5 - 5.2 gm/dL. The refe rence range was not used to interpret this result as normal/abnormal . MD De PazAspartate [id number] 20:27:11 Test Item Value Reference Range Interpretation Comments AST (test code = 20 U/L See_Comment [Automated message] The 1171) system which ge nerated this result transmit samuel reference range : <=32. The reference range was not used to interpr et this result as reji l/abnormal. MD De PazElectrolyte [id number] 20:27:10 Test Item Value Reference Range Interpretation Comments Sodium Lvl (test code = 143 See_Comment [Au tomated message] The 4090) system which ge nerated this result tra nsmitted reference range : 136 - 145 mEq/L. The reference range was not u sed to interpret this result as normal/abnormal . Potassium Lvl (test 3.8 See_Comment [Automa samuel message] The code = 6854) system which ge nerated this result tra nsmitted reference range : 3.5 - 5.1 mEq/L. The reference range was not u sed to interpret this result as normal/abnormal . Chloride (test code = 106 See_Comment [Auto mated message] The 2380) system which ge nerated this result tra nsmitted reference range : 98 - 107 mEq/L. The refe rence range was not u sed to interpret this result as normal/abnormal . CO2 (test code = 5227) 26 See_Comment [Aut omated message] The system which ge nerated this result tra nsmitted reference range : 22 - 29 mEq/L. The refe rence range was not u sed to interpret this result as normal/abnormal . Anion Gap (test code = 11 See_Comment [Aut omated message] The 9325) system which ge nerated this result tra nsmitted reference range : 4 - 14 mEq/L. The refe rence range was not u sed to interpret this result as normal/abnormal . MD De Paz.Serum [id number] 20:27:09 Test Item Value Reference Range Interpretation Comments Creatinine (test code = 5399) 0.63 mg/dL 0.51-0.95 MD De PazWlzhmmobNnrozvagtejp9734-39-44 20:20:22 Test Item Value Reference Range Interpretation Comments Neutrophil % (test code = 31.2 % 42-66 L 57125-5) Lymphocyte % (test code = 61.9 % 24-44 H 737-7) Monocyte % (test code = 4.5 % 2-7 744-3) Eosinophil % (test code = 1.4 % 1-4 713-8) Basophil % (test code = 0.8 % 0-1 707-0) IGRE % (test code = 0.2 % 0-0.4 IGRE % c ount 99502-3) includes Metamyelocytes, Myelocytes, and Promyelocytes. Neutrophil Abs (test code 2.83 K/uL 1.7-7.3 = 753-4) Lymphocyte Abs (test code 5.61 K/uL 1-4.8 H = 732-8) Monocyte Abs (test code = 0.41 K/uL 0.08-0.7 743-5) Eosinophil Abs (test code 0.13 K/uL 0.04-0.4 = 712-0) Basophil Abs (test code = 0.07 K/uL 0-0.1 705-4) IG Abs (test code = 0.02 K/uL 0-0.04 24313-3) Lab Interpretation (test Abnormal code = 14728-7) MD De Paz.[id number] 20:20:20 Test Item Value Reference Range Interpretation Comments WBC (test code = 9.1 K/uL 4-11 6690-2) RBC (test code = 789-8) 4.31 See_Comment [Au tomated message] The system Mumart generated this result transmitted ref erence range: 4.00 - 5 .50 M/uL. The refer ence range was not u sed to interpret this result as normal/abnor mal. Hgb (test code = 718-7) 13.5 See_Comment [Au tomated message] The system Mumart generated this result transmitted ref erence range: 12.0 - 1 6.0 gm/dL. The refe rence range was not u sed to interpret this result as normal/abnor mal. Hct (test code = 40.7 % 37-47 4544-3) MPV (test code = 787-2) 11.4 fL 4-10.4 H MCH (test code = 785-6) 31.3 pg 27-31 H MCHC (test code = 33.2 See_Comment [Automate d message] 786-4) The system Mumart generated this result transmitted ref erence range: 31.0 - 3 6.0 gm/dL. The refe rence range was not u sed to interpret this result as normal/abnor mal. RDW-SD (test code = 45.1 fL 35.1-46.3 37830-0) RDW-CV (test code = 13.0 % 12-15.5 788-0) Platelet count (test 243 K/uL 140-440 code = 777-3) INRBC (test code = 0.0 % See_Comment The INRBC (instrument 5974) NRBC) value ref lects the enumeration of nucleated red b lood cells contained in a 200uL sampleof whole blood analyzed by the instrument. Thi s value maydiffer from the NRBC value repo rted in a manual differential,wh ich is based on a 100 cell differential. [Automated mess age] The system Mumart generated this result transmitted ref erence range: <=0.0. T he reference range was not used to int erpret this result as normal/abnormal . Lab Interpretation Abnormal (test code = 40470-1) [facility] Initial Treatment [id number] 00:02:01 Post- kyphoplasty inflammatory changes in the T12 vertebral body, site of biopsy- proven CLL/SLL, with no current evidence of metabolically active disease.. I personally reviewed these image(s) along with the resident's/fellow's interpretations, certify that if a procedure was performed I was physically present, and agree with the final report.Interface, Radiology Results In - 05/03/2020 6:04 PM CSTFULL RESULT:Examination: FDG PET/CT, 05/02/2020 1409 hours.Clinical History: 79 years old female with recently diagnosed with CLL/SLL via T12 vertebral body biopsy 03/20/2020 status post kyphoplasty.Indication: Baseline staging for newly diagnosed lymphoma with bone involvement.Comparison: CT 03/08/2020.Technique: F-18 fluorodeoxyglucose (FDG) 10.1 mCi was administered intravenously via left forearm. Toallow for distribution and uptake of radiotracer, the patient was asked to rest quietly for approximately 60-90 minutes. PET/CT imaging was performed from the vertex of the head to the feet. Serum blood glucose at the time of the injection was 91 mg/dL. CT scanning was done for attenuation correction, image registration, and diagnosis with scan parameters optimized to minimize radiation exposure to the patient. SUV measurements are reported as maximum SUV based on body weight unless otherwise specified. Findings: The background maximum SUV uptake from the mediastinal blood pool and liver parenchyma are 1.5 and 3.2, respectively.Head and Neck: Normal physiologic FDG uptake is present in the brain parenchyma without focal abnormality. Evidence of prior left skull trepanning. There is no focal hyper metabolic activity in the paranasal sinuses, nasopharynx, salivary glands and thyroid glands.There are no enlarged or hypermetabolic cervical or supraclavicular lymph nodes.Chest: There are no enlargedor hypermetabolic axillary, mediastinal or hilar lymph nodes.Incidentally noted, there is a focal oval-shaped uptake in the interatrial septal region, corresponding to fat- containing lesion, most likely benign such as lipomatous hypertrophy of the interarterial septum.There are no endobronchial lesions. There are no suspicious pulmonary nodule or mass. Biapical scarring is present.Abdomen and Pelvis:There are no enlarged hypermetabolic lymph nodes in the abdomen and pelvis including inguinal region.There are no focal hypermetabolic activity in the liver, spleen, pancreas, bilateral adrenal glands,bilateral kidneys, stomach, small and large bowel loops. There is incidental focal FDG uptake at thedistal esophagus nearby gastroesophageal junction with maximum SUV of 3.9 (image 165). Simple left he patic lobe cyst, 2.7 cm in long axis is present from prior image 162). There are a few subcapsular small oval peripherally calcified hepatic lesions are seen on image 165, 189 and 198, likely benign entities. Sigmoid diverticulosis is present without CT findings of acute inflammation. Patient status post cholecystectomy. Spleen appears atrophic. Pancreas appears atrophic with partial fatty replacement.Musculoskeletal: Multiple degenerative changes of the spine are present. Patient status post T12 kyphoplasty with postprocedure inflammatory changes. There are no suspicious focal FDG avid osseous or soft tissue lesions.IMPRESSION:Post-kyphoplasty inflammatory changes in the T12 vertebral body, site of biopsy-proven CLL/SLL, with no current evidence of metabolically active disease..I personally reviewed these image(s) along with the resident's/fellow's interpretations, certify that if a procedure was performed I was physically present, and agree with the final report.MD De PazIFE Path [id number] 18:13:28IFE Path IntThe serum protein immunofixation electrophoretic patternsobtained with the use of antisera against IgG, IgA, IgM,bound kappa and bound lambda light chain proteins show a small IgG lambda protein of unknown significance, although the possibility of an IgG lambda M- protein cannot be excluded. Comment: MD Matthew PHELPS [id number] by: MD Matthew PHELPS [id number] Date/Time: 05.03.2020 12:13 PM ALLOY WEIGHER Transcribed Date/Time: 05.03.2020 12:13 PM CSTElectronically Signed By: MD Matthew PHELPS [id number] on05.03.2020 12:13 PM [facility] De [id number] 18:13:27 Test Item Value Reference Range Interpretation Comments SUSIE (test code = 5948) See Comment MD De PazProtein Electrophoresis Path [id number] 18:13:26SPE Path InterpThe serum protein electrophoretic pattern shows indistinct peaks in the gamma region.If a paraproteinemia is suspected clinically, serum free light chain studies, serum protein SUSIE studies, serum immunoglobulin quantitation and urine Bence-Lee protein studies are recommended. Comment: MD Matthew PHELPS [id number] by:MD Matthew PHELPSDictated Date/Time: 05.03.2020 12:13 PM ALLOY WEIGHER Transcribed Date/Time: 05.03.2020 12:13 PM CSTElectronically Signed By: MD Matthew PHELPS [id number] on 05.03.2020 12:13 PM [facility] AndersonSerum Protein Electrophoresis 2020-05-03 18:13:25 Test Item Value Reference Range Interpretation Comments TOT PROTEIN (test code 7.2 See_Comment [Aut omated message] The = 8545) system which ge nerated this result tra nsmitted reference range : 6.4 - 8.3 gm/dL. The reference range was not u sed to interpret this result as normal/abnormal . Albumin (test code = 4.3 See_Comment [Autom ated message] The 175-7) system which ge nerated this result tra nsmitted reference range : 3.6 - 5.4 gm/dL. The reference range was not u sed to interpret this result as normal/abnormal . Alpha 1 Globulin (test 0.3 See_Comment [Aut omated message] The code = 2865-4) system which generated this result tra nsmitted reference range : 0.2 - 0.4 gm/dL. The reference range was not u sed to interpret this result as normal/abnormal . Alpha 2 Globulin (test 0.9 See_Comment [Aut omated message] The code = 2868-8) system which generated this result tra nsmitted reference range : 0.5 - 1.0 gm/dL. The reference range was not u sed to interpret this result as normal/abnormal . Beta Globulin (test 0.8 See_Comment [Automa samuel message] The code = 2871-2) system which generated this result tra nsmitted reference range : 0.5 - 1.1 gm/dL. The reference range was not u sed to interpret this result as normal/abnormal . Gamma Globulin (test 1.0 See_Comment [Autom ated message] The code = 2874-6) system which generated this result tra nsmitted reference range : 0.7 - 1.6 gm/dL. The reference range was not u sed to interpret this result as normal/abnormal . MD De Paz Hepatitis C Virus Ab Screen, Reflex HCV [id number] 18:03:31 Test Item Value Reference Range Interpretation Comments HCV Ab Screen-[place] Negative Negative Signal-to -cutoff ratio is (test code = <1.00. Test Per formed 75551-2) by:[facility] [address] [place] [id number] Director: Parker Pierre M.D. Ph. D.; CLIA# [id number] MD [facility] hospitalalissa B Core Total Afajthsi2045-18-81 18:00:53 Test Item Value Reference Range Interpretation Comments HBc Total Ab-[place] Negative Negative Test Perf ormed by:[place] (test code = [facility] - 05665-0) [facility] [employer] [address]kwvn[address] [employer] [place], [place] [address]Wsk Director: Parker Pierre M.D. Ph. D.; CLIA# [id number] MD [facility] hospitalalissa B Surface Ag w/Fjkynsc6187-14-92 17:48:03 Test Item Value Reference Range Interpretation Comments Hep Bs Ag-[place] Negative Negative Test Perform ed by:[place] (test code = [facility] - 5196-1) [place] [employer] Nwtol[address] [employer] [place], [place] [address]Zzc Director: Parker Pierre M.D. Ph. D.; CLIA# [id number] MD De PazFlow Cytometry Specimen Collection -[id number] 16:33:14 Test Item Value Reference Range Interpretation Comments Flow Cytometry Yes Test performe d by:The (Received) (test code = [facility] 8319) [facility] LowellFlow Cyto metry Csmseatljw8871 MD [place] [address] Delmis Ap Link (test N/A code = 56553) MD De PazOSI CT Krsae8834-81-19 13:19:05Study acquired at another institution. For comparison only. No MD De Paz originated interpretationrequested or available.MD De PazTMShlomo HIV 1/2 Ag&Ab Path Hiyxrb7752-15-90 12:38:54 Test Item Value Reference Range Interpretation Comments HIV 1/2 Ag&Ab Negative for HIV-1 Interp (test antigen and code = 9394) HIV-1/HIV-2 MAY RIN antibodies. No LAFLEUR laboratory evidence Desean GARRIDO ictated by: of HIV infection. JACQUELINE EL If acute HIV Vishal GARRIDO infection is Date/Time: suspected, consider 05.03.19 6:38 AM testing for HIV-1 ALLOY WEIGHER Elliott scribed RNA. Date/Time: 05.03.2020 6:38 AM CSTElectronical ly Signed By: JACQUI IN CIARRA GARRIDO, on 05.03.2020 6:38 AM C MD De PazHIV-1/2 Antigen and Antibodies, Fourth Vcazxvazwx9173-19-15 03:08:01 Test Item Value Reference Range Interpretation Comments HIV 1/2 Ag & Ab, Non Reactive Non Reactive Performed a t: 4th Gen (test code [facility] = 9280) [address] [address] MD De PazBeta 2 Iwfxmgeriikxo3822-01-34 20:36:21 Test Item Value Reference Range Interpretation Comments Beta2 Microglob (test code = 5090) 2.4 mg/L 0.8-2.3 H Lab Interpretation (test code = Abnormal 84505-4) MD De PazRfyysgjwOyL1881-60-66 20:36:20 Test Item Value Reference Range Interpretation Comments IgM (test code = 6023) 121 mg/dL 35-242 MD CaryHwtwzameBhX9603-53-86 20:36:19 Test Item Value Reference Range Interpretation Comments IgG (test code = 6001) 898 mg/dL 610-1616 MD CaryYhsgnmjfAmD1682-91-51 20:36:18 Test Item Value Reference Range Interpretation Comments IgA (test code = 5992) 166 mg/dL 85-499 MD AndersonMolecular Diagnostics Specimen Collection -Fvjlv1959-46-94 20:05:49 Test Item Value Reference Range Interpretation Comments Molecular Diagnostics (Received) (test Yes code = 8400) [facility] Ap Link (test code = 88152) NA MD De PazConfirm QMCCk6618-89-54 19:50:51 Test Item Value Reference Range Interpretation Comments ABORh Confirm. (test code = 882-1) O POS MD De PazVitamin D [id number] 19:03:42 Test Item Value Reference Range Interpretation Comments Vitamin D 25 OH (test 41 ng/mL 30-100 Refere nce Range: code = 8018) Deficiency: <10 ng/mLInsuff iciency: 10-29 ng/mLSufficienc y: 30-100 ng/mLPotential toxicity: >10 0 ng/mL MD De PazCytogenetics Specimen Collection -[id number] 19:01:55 Test Item Value Reference Range Interpretation Comments Cytogenetics (Received) (test code = Yes 8304) MD De PazFree [id number] 18:57:41 Test Item Value Reference Range Interpretation Comments T4 Free (test code = 7502) 1.27 ng/dL 0.93-1.7 MD De PazZghnfakvHDH4063-63-78 18:57:38 Test Item Value Reference Range Interpretation Comments TSH (test code = 1.42 See_Comment [Automated message] The 8627) system which ge nerated this result transmit samuel reference range : 0.27 - 4.20 mcunit/mL. The reference range was not used to interpr et this result as reji l/abnormal. MD De [facility] Glucose Ujyebu8952-41-96 18:30:35 Test Item Value Reference Range Interpretation Comments POC Glucose (test 91 mg/dL 70-99 Capillary blood samples, code = 09816-1) e.g. obtaine d by fingerstick, ma y have inaccurate resu lts in patients with d ecreased peripheral bloo d flow. Method descript ion: All results are shayy sured using Electrochemistr y test methodology. Th e glucose in the sample mixe s with the reagents on the test strip. The reaction pr oduces an electric curren t. The amount of curre nt produced is proportional to the glucose concent ration in the blood. PO Sample Type Venous (test code = 9554) MD De PazPartial Thromboplastin Ozij1433-62-83 18:03:31 Test Item Value Reference Range Interpretation Comments PTT (test code 26.1 See_Comment Testing Perfo rmed = 99531-6) [facility] Amb[facility] [facility] [address]GCJV Licen se: [id number] [Automated mess age] The system Mumart generated this result transmitted ref erence range: 24.2 - 3 6.0 second(s). The reference range was not used to int erpret this result as normal/abnormal . TOR (test code This lab cannot be = TOR) scheduled at the following locations due to collection/proccess ing restrictions: [facility] and [facility]. MD De PazProthrombin Time with [id number] 18:03:30 Test Item Value Reference Range Interpretation Comments PT (test code 12.8 See_Comment Testing Perfor med = 5902-2) [facility] [address] [Automated mess age] The system Mumart generated this result transmitted ref erence range: 12.0 - 1 4.3 second(s). The reference range was not used to int erpret this result as normal/abnormal . INR (test code 1.01 0.90-1.10 Testing Perfo rmed = 6301-6) [facility] [facility] [address] TOR (test code This lab cannot be = TOR) scheduled at the following locations due to collection/proccess ing restrictions: [facility] and [facility]. MD Gillespie C Virus [id number] 17:52:21 Test Item Value Reference Range Interpretation Comments HCVAb Received (test See Note HCVAb w as sent to a code = 12902) reference lab for testing. Expec t results on Hepa titis C Virus Ab Screen w/Reflex HCV PC R within 96 hours. MD Gillespie B Surface [id number] 17:52:20 Test Item Value Reference Range Interpretation Comments HBsAg Received (test See Note HBsAg w as sent to a code = 01651) reference lab for testing. Expec t results on Hepa titis B Surface Antigen w/ Confirm within 96 hours. MD De PazHepatitis B Total Ig Core Ab (SCREENING) (anti-HBc total Ig; HBcAb total Ig)2020-05-02 17:52:19 Test Item Value Reference Range Interpretation Comments HBcAb Received (test See Note HBcAb w as sent to a code = 27775) reference lab for testing. Expec t results on Hepa titis B Core Total Ab w ithin 96 hours. MD De PazMD COVID-19 (PATI-CoV-2) PCR Vljokcqfgdyw5948-32-37 01:28:14 Test Item Value Reference Interpretation Comments Range COVID19 SARS New Patient Indication (test code = 63500) COVID19 SARS Result Not Detected Not Detected (test code = 96202-0) COVID19 SARS SARS-CoV-2 NOT Detected. Interpretation (test Reference Range: Not code = 69378) Detected Methodology: The Bonner RealTime SARS-CoV-2 assay is a qualitative real-time reverse creative services director polymerase chain reaction (industrial fabric cutter-PCR) test to detect RNA from SARS-CoV-2 in nasal, nasopharyngeal and oropharyngeal swabs from patients with signs and symptoms of infection who are suspected of COVID-19 by their health care provider. The Bonner RealTime SARS-CoV-2 performed on the [employer]000 System is a dual target assay with primers and probes for the RdRp and N genes. Results must be interpreted within the context of all relevant clinical and laboratory findings, and epidemiological risk factors. Positive results are indicative of the presence of SARS-CoV-2 RNA; clinical correlation with patient history and other diagnostic information is necessary to determine patient infection status. Positive results do not rule out bacterial infection or co-infection with other viruses. Negative results do not preclude SARS-CoV-2 infection and should not be used as the sole basis for patient management decisions. The Bonner RealTime SARS-CoV-2 assay is for in vitro diagnostic use under FDA Emergency Use Authorization only. Testing is limited to laboratories certified under the Clinical Laboratory Improvement Amendments of 1988 (CLIA), 42U.S.C. 263a, to perform high complexity tests. The Test was performed by the CLIA-certified, high-complexity Molecular Diagnostics Laboratory (MDL) at [facility] under the Food and Drug Administration (FDA) s Emergency Use Authorization. Factsheet for patients: https://www.mdanderson.org/ AbbottFactSheetPatientsFact sheet for healthcare providers: https://www.mdanderson.org/ AbbottFactSheetHCP Test performed by:[facility] Molecular Diagnostic [address] [place] [address] [facility] Obvqduowynoaqo7225-06-42 15:40:00 Test Item Value Reference Range Interpretation Comments Materials Received (test o7tucUIvTOMhtQHoHfBh code = 9973) GGDhEYPvd5vuFHCgaHNh ZzEwMzNcZnRuYmpcdWMx WPBcYnOhm2ese490fIJp w4lqEJTwTqL6uZVcNDQp xOEvQ302TJUuBEwom2wp c6SlKNMinGGkr8Z8MQLS rkdijVq3fYerC72mr1H6 JxeiY1faKUYsETMkV9Qh PI3jGJFxHap5TXL7SKN3 HOWzSYBoV3IwBE6oMMDt pIQpGJi9u4fcsFdmOAUn KGP2y9kpNXauxaSsZP4z dd9ulQc8s6kckfDtCMBb GNZwuUTKBABfJ3BnpQan Hq2tcKi8oOiyPrgdHEG3 Rxh0FB3fym46qax0sXsf KNLxymqmNxD2BMkoGGXz qotlLTo2TRuhTQTntSri MFxtYXJncjcyMFxtYXJn dCA6EAZdcHKpC1EnJYQn WZoaXFQyyjj5JgEbKx4k pWUffRbvOKmmo6dbr3pz hJGnZjo3TBZaIoRwRysz HWsbm1Qyr1pkHRBgdx5l NUW7oDQkxIyff3W0mYWs FHKnfGHewjAwTBExbf98 fTCygLHipLHchu3taqKd jQElrQNsQBO2pLBtdeSe AMHdbMZbHOQrDS4mgDTo TVSajN1xduepWGIvJfYy zjocXIVvtCqeweQtUy9l oWjePEI3YShlY6dntG3k SeW3LCqsY7nvbO6cEWi3 PGzysHB5KKJddD5sZY5v gxxdv2vwInYmUQ4mhbow r8yrSbQjWE0cpfz5h0ee FEU4ZWtsWKFlUeV0fvJ1 NDBcaGVhZGVyeTcyMFxm k443OPO6ObYvCRDbh2Hz M1JtjMidN48ukCszW02z EPDjbDpzjC4qvXwvhA4g SxExCvPfOMj9fx78NEe6 cilwdIbzXLb8mlUhILBx FMV5CJCmvYWwSMNnC3q0 yfJiVNXrJGO5OETmdWIs NHEdS6s4tfRsCYL7FLn2 cnBhZGRmdDNcdHJwYWRk YjBcdHJwYWRkZmIzXHRy fSTsrPPgyHQiqB1lsNmb SFWaiOSeaA7dSKN4NDNs cmgzMjBcdHJoZHJcbHRy ic08MJWvowIcuVThkVdw bDVoENP6DCZtIDGjSENa PCL5ZLFsRqHwufRyQBlu bGJyZHJiXGJyZHJzXGJy UAI4QCTqBiPagwNcWEnl bGJyZHJsXGJyZHJzXGJy GVJ4CHRgApFpxiVqKAlk bGJyZHJyXGJyZHJzXGJy CTF2YOPbQyVxrbTeQOjx bHBhZHQxMFxjbHBhZGZ0 H0lcmLPjPWRaBMkvkBBo CLYgO9wwcEKhOGjmKBFv cGFkZmwzXGNscGFkYjBc W2mtVXIpIyOvN8KndWa9 MDAwXGNsdmVydGFsdFxj lPYxNCU5PHNoBMJrBWIl KRB4HDQzDjVqwgZoRYtw bGJyZHJiXGJyZHJzXGJy KFW2PWRbUwLkioYzJPht bGJyZHJsXGJyZHJzXGJy ZLM3GYYkOzEplaBqUPlm bGJyZHJyXGJyZHJzXGJy UWH8BUUoMxNgbnGhQJll bHBhZHQxMFxjbHBhZGZ0 B2qeqRHbPVDkVWrfoHEg BVFqP6txzWZwJZvqECWq cGFkZmwzXGNscGFkYjBc A4xwECRjFhTjF2SzdFe9 NjAwXGNsdmVydGFsdFxj cCYvVNR7VYUxRZMrTYOd EKW9HQPwJlQizmQsNOix bGJyZHJiXGJyZHJzXGJy YMX2RLDxEjMvrtNhYNzg bGJyZHJsXGJyZHJzXGJy VID2MLKdSjJgimSaOKgk bGJyZHJyXGJyZHJzXGJy SPH8JQAtRcNpfoXaEQhl bHBhZHQxMFxjbHBhZGZ0 P4ittBNpCNGzBBfcnXSb UVEzQ8lvxBDgXEqjVOGx cGFkZmwzXGNscGFkYjBc C8awJTXiAsRsP9IcvHs8 MhAuTVFgbfGkfQ92Ilpz m8InVZUpRRW8QOosZHwm bFxwbGFpblxmMVxmczIw FVdyizsnMGWoVPsjF0jo JxGzVGRidRfgIMofa9Ju XGYxXGNmMlxmczIwXGIg ZDAaLNXehR9lIdwfG9Ud uY7rZGuyWpotL6xyVIAi q1CczQ3eUPhvdDCjspbi MVxmczIwXGxhbmcxMDMz BGniN3qvUhTcUHJnjNio SUcil0YbGVEyNSRgNjpu lnCaUDl4irHpZYWihDkl qYImIWddckBapAptr0Dy gkAedJgeOFGwBKc6idHo gaoskXh0oIItxQosVTSl dVbrlZ3yOfGkKtRcMTnq bGFpblxmMVxmczIwXGxh xtrxZRBnKYkhR8ptIwXn ADDffXkyXYhqr6PuMMQj XRXrDdfaepFvNWGiZ98d bGVjdGVkXHBsYWluXGYx XGZzMjBcbGFuZzEwMzNc aGljaFxmMVxkYmNoXGYx BSzwS4ltZyEcP5NzLVOl JrGnmJJdS1hdV9MmtUmx YXJkXGludGJsXHNzcGFy LZC3mIOuypKpqQJvnYJf JVCfKTddKYH5dNNqtjdm hTGukpijLIhtoiW2ROSx YWluXGYxXGZzMjBcbGFu ZzEwMzNcaGljaFxmMVxk ZzBuYXQoTKaiI0bzKgTc I4XgRGPfCuOrHmDZNGZt aXZlZFxwbGFpblxmMVxm czIwXGxhbmcxMDMzXGhp G2nxMzPjVXOqrMjfFLfv m0AxGLAfZOVdQhunkbGc LYj1raEtUXTevSqxfT34 Kiapbd34UZAod3raLBCq O9ErhCYyDTRpsXMtBJfe MDhcdHJwYWRkZmwzXHRy cGFkZHIxMDhcdHJwYWRk ZnIzXHRycGFkZHQwXHRy vPYiAPD3U1y1wuMnEVVj JAs9gdAbQHXvVzUwxNZj FCJ4FIk3NdxwixF6hYJv I9a1WaekdbBdYUgwxZGf fy25ZDQzlyCyuPVynKgz dGDjVEU6OHMvJPPtDDTa OLP2PQVrCoHbahZjCBbk bGJyZHJiXGJyZHJzXGJy BEU7VOIzZlGhtrXzUObs bGJyZHJsXGJyZHJzXGJy CPP8SPMjVtEpvjUfMCes bGJyZHJyXGJyZHJzXGJy QTM9JQZnCgYwmaIiNNpg bHBhZHQxMFxjbHBhZGZ0 Y1tnyZFtKSVsGEctjLPi SMRwK5lsmSEoJGohYGSq cGFkZmwzXGNscGFkYjBc O6ehWUVnHqXzF0YrwWh2 MDAwXGNsdmVydGFsdFxj dWLfSVO7KEClXIDiQWFl OOV1BPTcTpLhlaBkXSqr bGJyZHJiXGJyZHJzXGJy VQE7BKLeFpZttnGaRXhi bGJyZHJsXGJyZHJzXGJy DWT4QRLxXwFjgjOoNUdh bGJyZHJyXGJyZHJzXGJy KGB6QJXcPrEqdsHcXZeb bHBhZHQxMFxjbHBhZGZ0 A8amyWIdFCOtGAqzpOVx WPNkL2freAPzNSubEPZs cGFkZmwzXGNscGFkYjBc N5rsCMWzEmXxD4ZwxUp1 NjAwXGNsdmVydGFsdFxj jLPrVEJ9VKQkRNFvVDSq CYA3AVSzQwUfvhXjGOhm bGJyZHJiXGJyZHJzXGJy IQE1MMXxAqUhvlGkPItv bGJyZHJsXGJyZHJzXGJy OTM1FEJmAePncnDwOIlp bGJyZHJyXGJyZHJzXGJy KPR2HUFeGkBkbyNyKNaj bHBhZHQxMFxjbHBhZGZ0 W7kmvYVvEFPdVSrutLQs FPNvE9oqjJKdPMroFYQu cGFkZmwzXGNscGFkYjBc Z8oxCHVjNdEeP7JgtCc0 IhChUHSykqSgbM34Bonp h7IxUQQgGHY6JFjhCFci bFxwbGFpblxmMFxmczI0 XHBsYWluXGYxXGZzMjBc bGFuZzEwMzNcaGljaFxm XFhgLmNsXSJqIVdqB8to QjJgQ6PoPGWlEiMlOC2u SZXgQmXyBTAwLGB5UUYs OQLFNecoOWPYGT5RG5Am IDAgVVNTXHBsYWluXGYx XGZzMjBcbGFuZzEwMzNc aGljaFxmMVxkYmNoXGYx XWctJ0twAeAvZ8IyZVDg NmPwcEOdL1bsZ4KiwPwa YXJkXGludGJsXHNzcGFy XRE0yLDdadYadBbepNsw xI6kOeXjCfQdAKbyrRTj blxmMVxmczIwXGxhbmcx OPYhQUokT9ldIhPwSQXa qMxeAScwi3GjPPQbPBSj MlxmczIwIDExLzIzLzIw WhKkkIhgbZ7kWrUnFoBd IFchWO6yPOWcQ2cisIFy QCUbREVvG7qoJaWnnU6k aFxmMVxjZjJcZnMyMFxs dHJjaFxjZWxsXHBhcmRc wW93Nefus8MyNXZpZHW9 MFxzMFxxbFxwbGFpblxm FWfdeiW7ZZRoTNgtDPNc XGZzMjBcbGFuZzEwMzNc aGljaFxmMVxkYmNoXGYx IUxeJ8lcAqLcO8EfBCKk HbMkDRCgCI8rRIRoBLMa YWluXGYxXGZzMjBcbGFu ZzEwMzNcaGljaFxmMVxk ObBvAIGwODyqL3chVnNm K0JpNRNrNrCoiTAdV8yv Z6IinAaivoOavXrda8wi cZIaOTqvr2LforInkDal XHMwXHFsXHBsYWluXGYw ANJoCnDfcAjimW5wSiLl GtXkMStlVG8eBBFnV9al cNFfTDWhSJOhZ6qfBaLd nU0vrUxqEXdyqzQoDUVv cn0= Diagnosis (test code = h8qjvTCaLXQqzHU7HvSs 34) BLUww2tvk8ErpAMyhUNb YTrehNUlmsNipg20xGW8 hZ75EP5bXVTxSqP6OMZq ifO5Ygr0YSHvUQThwGKw Y329v2exg3hywfTpoFG7 fVxwYXJkXHBsYWluXGZz LeLcQa2eLUuejImktwJl aWMgdmVydGVicmEsIGJp m0MgfDNtZXkAFZWgEWAy Ejh1UgzaD60mdXNirOAi WS6lJMLjIiXgJaZtQbLr OlxwYXJccGFyXGxpNzIw LZtpnqsfDTovJBWESg5Y MSQjWDfGXOhUG1oGJJIy SMJSO8WSKSAgR69WYWmq DYdITZmTT9cUEJOxOGeO UEhPTUFccGFyXGxpMFxs pQ1dNBXplvhbVGvkVYT3 Comment (test code = s3mjbDSkTSVzsWY6PgUr 9835) BPRfq2fnm4FszHCcgDQl XZnbsTArmrKydm94aIV7 iY00PR3dBYUwOlE5TCUi abM6Mao2AOZxPKIcrMRl P927u0hvs0ceqlDvaHV8 fVxwYXJkXHBsYWluXGZz WfSyELrwkN8by1uvAvVt GPN2fA6fyiHwiC32PIXb PFQcW2VlYOSjOj2pNKCp xzQovUAyWTErtCKrcA3m cU0jTN5pILkxUZ4kp2Dq ZTGzUHaiQVFwrRSyj8Ul XK1iFBZgQCojVFy4qDYz t7qsUPMxnCwjCbHEs11t SFTpbD7zSIvwojnzOT4p YYHuL9LzHSGeJnAdy1nj IQIsEMEkjCQfHR2dsGXb NmXVqZ46di4jxQU9u4En XC6nN3QlRFL7mZKjYHVs qFLgCz8wiJVwMWGpb3E3 yQQyCDMpuR92YKRsRDPm vGkdOBD5qM1iAHGgoSkt OLFwVVEsq2MmdOx1WEMt y2PmV5N2AHVsKMKHODkx F5C8XpniOfFRBCEjSQ7r HHFNPaViSH5xRGFfEEDo JUtloAb8PJLbc9CrT5Qh JEWzzKAhbT2vSCRtPBHR NWMlHK0lHCMWDX62Nsgr ZUClbKXcTOgzVXS8zV9m cnksIHdlIGFncmVlIHdp rBxjlAldMXJeUSlwl3Lh otHmpuN7vL54t8c4RNCm tvByqqJlWH3cNCVKJC7E TEwuXHBhcn0= Disclaimer (test code = v2zueQRdPUMpmUArCsTs 9844) VLWvYNInc3zhWGNetWGx ZzEwMzNcZnRuYmpcdWMx NDWuBoXvw7vdb926iHRw v0ndJJXwRbL0vVEyPLAt oIUaV371EACiEQlyz4mu x0HaGGRonVOca6Q7TDFA njzkoJg9mGqdN34az3C5 AllaA3djYUXiYKXfF9Zt VO4jIUFiKfw8OCO3BMI8 FZLeZXJxF0SzBY3uVYAj zGDuVEb3n7shoClbHERq DZA5h1uhZHxnivZoCK8t wl0joXi3s2eqlpCuOVLt EACgbLUKJAHwB9MbeQyl Gr4luCs2xZkiJshiTBX1 Jdv5KC0mdl36xwj0rKvw EIQdbkuwKyD9HVoxSXBk urqsPRk8WVonBXVrvDA4 VDKvxQOpU0KrQMBqDL7y srg9IGH3ICriFBVrJzY1 NDBcaGVhZGVyeTcyMFxm n459WAZ4NiKpPQ6zK3Yr w0M3iX6jqLGaKZTnmRXt PlIdPKQlue1yxFJoDEvq d2LlLTA2krA1uCJwnJAb NOEwDU78Atoao7TeBosy LYV2QEYymtTdm5Qzn4xg ZlPuosTqH5ggQ4GiTFMl AMSxYXJtDfCnecKea5Az x5ItjWDkhZe8c0jyFNIp HCTayPkrk7ugTYP0RFYo Y3U2eSAvx4fdTAsiTXMu lCS6gjO5TYUniVZyH5Fc wM3lWLZhUE9xmak9x0wo OXR4TIiqWDBgUdS1uaJ1 NDBcaGVhZGVyeTcyMFxm i273QHZ2QhXeZDWcx1Em H6WbaUpeJ83duJleG45o FSVqfVrkdF5lsKuxkY5y ZjBcZnMyNFxxbFxwbGFp jdyiXNbjadX2SErntwrl ARHnCSlzV2ypRqOwERNd fSyyXWlua6EsDFSuLGFn DycpvcL2DRNZo47hAICj w5GyKBXryV9glVQkJPor auAejEL9BGerrbNzUcAq pzRfMMSjpS6dDGFiMS2e EPNsmfShlo6msqWfIIEv QMEaO1RmjdgadWgxnhBa KAJwrv5goaAsDBU4YJUP QK0KUFNrHJQbj68xVERq sFgcrA1nuLAesbUcGAYl b0IlwH3nfPSCSJZzG4ah TF1wCWbwr2MflAVgiYUd fEN8ZBPje6JuDzHjyhHp nHOhhWZiM3EwgUipK8gw IWFhWITntdTcgXVfr6Lk YLIajZT0vZGzMH6KVsMZ v16uLFCtJMIXzhSiAAVu jKrxhBX9brK5jW6yYsZF ZiBhcHBsaWNhYmxlLCBj q726wg8hxkA0LBWtLOKp znjqx4AyUHGkWBAtuT68 LMZnPTFnbr7kxjpumMLe wtSzE7Jfdhn3uO1xJOFf YWluXGYxXGZzMjJcbGFu ZzEwMzNcaGljaFxmMVxk NhNkLIGbCRsbP9mnKhWc ZnMyMlxwYXJ9 MD Valles Capsulotomy - OS - Left [id number] 12:31:41Time OutConfirmed correct patient, procedure, site, and patient consented. AnesthesiaTopical anesthesia was used. Anesthesia medications included Tropicamide 1%, Proparacaine, Phenylephrine HCL 2.5%.Laser InformationThe type of laser was yag. Total spots was 33. The energy was 1.4 mj. Total energy was 44 mj. Post-opThe patient tolerated the procedure well. There were no complications. The patient received written and verbal post procedure care education.Kyle Ortiz Corneal Topography, Rafael - [id number] 20:08:03 Test Item Value Reference Range Interpretation Comments zzAstigmatism (OD) (test 0.46x 42 code = 316) TOR (test code = TOR) Right EyeFindings include normal observations. Astigmatism is 0.46x 42. Left EyeFindings include normal observations. NotesCornea cleared with lubrication Kyle OrtizIOL Master - OU - Both Aohq7081-94-83 13:39:06 Test Item Value Reference Range Interpretation [...] OD OS BACKUP LENS : OD OS Kyle Ortiz[U] XRAY ELBOW MIN 3 VWS RIGHT [id number] 13:53:00Images acquired, not reported on this accession number.[facility] [U] XRAY ELBOW MIN 3 VWS LEFT [id number] 13:53:00Images acquired, not reported on this accession number.[facility] 2014-12-15 09:06:002.8[facility] NGMWQ6005-24-18 09:06:001.9[facility]CHE[facility] GTJSC9359-48-87 09:06:0094[facility]CHE[facility] FORUE6134-11-79 09:06:0013[facility] FYJDM8562-30-71 09:06:0086[facility] GSNXA2630-71-94 09:06:000.7[facility]CHE[facility] HKGFV0650-48-64 09:06:003.5 [facility] UVVGI8859-67-67 09:06:0027[facility]annCHE[facility] PANEL 2014-12-15 09:06:27439Mafobwjp HermannCHEM MTZCC7999-18-61 09:06:87511Ywmviwmw HermannCHEM TSRKJ8601-82-32 09:06:008.8[facility]annCHE[facility] QGCBA0604-90-44 09:06:0012.5[facility] YejptowRXAIBRYZDU9235-90-50 09:06:0038.6[facility] FHIRULYIGD4323-86-58 09:06:008.1[facility] VyhmgonWDHRPJZZPM0413-08-85 09:06:004.6 [facility] PmzbenoPQVYRJDQBP0631-56-75 09:06:0051.2[facility]annHEMATOLOGY 2014-12-15 09:06:000.1[facility] LjprgpjARNBCHXUCX9491-89-96 09:06:000.1[facility] RdfkuuaPJXAJPAAOW0687-84-83 09:06:00Normal (12/15/14 4:06 AM)[facility] DUKHJBPJKI6955-53-31 09:06:00Normal (12/15/14 4:06 AM)[facility]annHEMATOLOGY 2014-12-15 09:06:001.1[facility] PkagxoxPGAKDJDANV1346-95-02 09:06:006.1[facility] YoimiaoFNQQRCKZHC2547-96-90 09:06:001.0[facility] EyfwuhgQKIDIGISWK9232-86-29 09:06:001.0[facility] DepwawoBXUYQBCWKR8183-07-67 09:06:00 Test Item Value Reference Range Interpretation Comments PT (test code = PT) 13.8 s 12.0-14.7 [facility] PooeqloSEHCRMAVSN2622-63-51 09:06:00 Test Item Value Reference Range Interpretation Comments PTT (test code = PTT) 38.3 s 22.9-35.8 [facility] LrudhkxDYDPPVYGNA7327-21-96 09:06:001.06[facility]annHEMATOLOGY 2014-12-15 09:06:00 Test Item Value Reference Range Interpretation Comments MCH (test code = MCH) 29.9 pg 27.0-31.0 [facility] ScmeoncGITWIYBKSZ5111-60-68 09:06:0032.3[facility]annHEMATOLOGY 2014-12-15 09:06:0014.1[facility] DypncbxCTCXLXOFBQ8885-92-62 09:06:0011.8[facility] CntgiuuJBSFXYLKXI5040-65-85 09:06:0036.3[facility] QqhkgypCHYOPMQOJY9235-22-85 09:06:0092.6[facility] HfbqlljOPBIBSZRYQ9201-90-72 09:06:0012.0[facility] QHIMWMQYMM2678-39-84 09:06:003.93[facility] JksgwpnJBWVBOIVMQ4048-28-27 09:06:00 11.5[facility] HvraxpyKWPXXNKCJU8205-14-71 09:06:36841Nxiklknv HermannPARATHYROID XPSGTKH0592-66-95 09:06:001.18[facility] HermannPARATHYROID KBQNXTF8169-27-50 09:06:001.15[facility] MgqbtxpSUGPGZUTXO0157-14-90 08:18:0014.2[facility] KOEJYNALWQ2388-28-41 08:18:96367Byxkglin OnlhplgKVMAUUQALX4586-46-67 08:18:00 10.9[facility] AguwokoAAYINVOTLX4339-77-15 08:18:0011.2[facility]annHEMATOLOGY 2014-12-14 08:18:003.71[facility] PoqoimiLYOVHZHGJV8713-25-12 08:18:0014.3[facility] PilkwyqZTSPDQHRCH9498-50-89 08:18:0034.5[facility] HxrzjatVOTYFGJUNM7030-04-48 08:18:0093.0[facility] QlorwmbIKTBAEBKXN9148-51-74 08:18:001.10[facility] FJPJTGNJAK5821-91-91 08:18:00 Test Item Value Reference Range Interpretation Comments PTT (test code = PTT) 25.9 s 22.9-35.8 [facility] DoyhtuqHOKWSQEQJY2013-14-85 08:18:00 Test Item Value Reference Range Interpretation Comments PT (test code = PT) 14.3 s 12.0-14.7 [facility] LgrqrbnOCTDSOBPTT7168-14-40 08:18:0013.6[facility]annHEMATOLOGY 2014-12-14 08:18:000.3[facility] JvlsfmsHNZBYARDNJ4618-80-62 08:18:005.6[facility] VbhcyfySKVBBXQZDY9869-48-60 08:18:000.8[facility] WscxiwjWKCOGKACNH9354-19-07 08:18:0011.5[facility] IvmtyrlCVSESHBLJK2933-66-34 08:18:002.0[facility] LYDAGAKYJF3987-03-89 08:18:0080.5[facility] HermannPARATHYROID YRZSZUQ0201-29-16 08:18:001.14[facility] HermannPARATHYROID PLCHMMC9075-01-50 08:18:001.14[facility]annCHEM PEIYC4631-35-58 08:18:003.3[facility]annCHEM CQQUG6081-48-48 08:18:002.3[facility] UjdiwqhHBHEQPCTWEJM8624-92-02 08:18:0012.0[facility] KQIPJDYYOZMQ2807-38-21 08:18:0073[facility] PwmomabEAMMGGWPGLWB3788-58-60 08:18:00 106[facility] DyieehfHHVVTMPQFODS1737-57-42 08:18:004.0[facility] RBSGXUHLNRNB0632-94-70 08:18:009.4[facility] VyadyorBGTMUITNQYUO1107-33-61 08:18:0025[facility] CavlrspSJPAAYZLMUVX1312-17-03 08:18:75738Iuffphcv [facility] XAMNWZJJXXCB4708-06-45 08:18:58801Ztmulrmp PxvvsxgSANTEPNECDQP1453-12-66 08:18:0017[facility] VvviajiHRCQSNMCFREM5876-09-99 08:18:000.8[facility] OTSXZIICBC1213-74-39 08:18:0032.6[facility] VaopicyRGNLPZJWHQ0864-11-37 08:18:00 Test Item Value Reference Range Interpretation Comments MCH (test code = MCH) 30.3 pg 27.0-31.0 [facility]annBACTERIAL - EFLHJDSM8599-62-33 16:29:00Negative (12/13/14 11:29 AM)[facility] ZGALE5049-37-44 16:29:00Clear (12/13/14 11:29 AM) [facility] HFDMH9544-66-46 16:29:001.011[facility] DCKQQ0035-41-23 16:29:006.0[facility] EFPQO2916-37-58 16:29:00 Large *ABN*(12/13/14 11:29 AM)[facility] RUHEA1159-72-08 16:29:00 Negative (12/13/14 11:29 AM)[facility] WIEML8214-55-03 16:29:00 Negative (12/13/14 11:29 AM)[facility] VCYHY4442-28-46 16:29:00 Negative *NA*(12/13/14 11:29 AM)[facility] YQPJA1617-59-48 16:29:006[facility] EPWXY7766-84-93 16:29:0052[facility]INE AND VMECU8367-26-86 16:29:00Yellow *NA*(12/13/14 11:29 AM)[facility] CARDIAC NWNVREN2163-36-46 07:00:00<0.02[facility]annCARDIAC ENZYMES 2014-12-13 07:00:00<0.010[facility]annCARDIAC PTFBPVH2743-07-61 07:00:0049 [facility]annCHEM AUJEE4768-66-75 07:00:002.1[facility]annCHEM PANEL 2014-12-13 07:00:001.5[facility]annCHEM TXHZL6590-59-57 07:00:0086[facility]annCHEM JRMLE4378-60-53 07:00:80834Yninslcv HermannCHEM CCIFI3882-78-05 07:00:0010[facility]annCHEM QVZDR6857-48-09 07:00:000.7[facility]annCHE[facility] FYTPA2955-03-04 07:00:003.8[facility]annCHE[facility] ZYPUE3327-42-78 07:00:71346 [facility]annCHEM OTTYV9149-80-37 07:00:21687Vuckadui HermannCHEM PANEL 2014-12-13 07:00:0021[facility] HermannCHEM [id number] 07:00:008.4[facility] HermannCHEM YPBEH2247-28-30 07:00:0013.8[facility] PdzrwzjJNETEENQQK9904-25-36 07:00:0012.5[facility] PhjgotiEORTDHXJGR4759-37-90 07:00:000.5[facility] VPEYWOKIMF8301-64-25 07:00:000.2[facility] BzftlxaQHKCOYONAD5988-88-23 07:00:00 94.7[facility] VijzauaKITOCYTYNR4140-96-40 07:00:000.1[facility] HermannHEMATOLOGY 2014-12-13 07:00:001.3[facility] HytdchzBWRSEKARUG7142-16-90 07:00:003.9[facility] NefekpiHJPPDHUJIN1151-07-04 07:00:001.11[facility] HbnfuipCWANBOEYNM4640-97-48 07:00:00 Test Item Value Reference Range Interpretation Comments PTT (test code = PTT) 24.5 s 22.9-35.8 [facility] TpyociyHNEPXSUPYR7678-95-30 07:00:00 Test Item Value Reference Range Interpretation Comments PT (test code = PT) 14.4 s 12.0-14.7 [facility] LhnqoxyBDSQENKUZA6674-56-46 07:00:31785Zctuorgc HermannHEMATOLOGY 2014-12-13 07:00:0011.1[facility] FuqwzykKEPCHJOLIZ8548-60-44 07:00:003.72[facility] DykpfxvTAUXVCQZTL5779-79-72 07:00:0011.0[facility] SjhlbiiFRRKKKETSW5978-03-73 07:00:0013.3[facility] JdnvnnfTXXPNYTFTV2826-53-00 07:00:0034.7[facility] GTJOLRCWZB2027-16-41 07:00:0093.2[facility] PtuuvjzHYEZWASLXO3491-57-41 07:00:00 31.8[facility] EhdqxdqKDYCNJFUSE5535-39-31 07:00:0014.1[facility] HermannHEMATOLOGY 2014-12-13 07:00:00 Test Item Value Reference Range Interpretation Comments MCH (test code = MCH) 29.6 pg 27.0-31.0 [facility] HermannPARATHYROID MOMDNML8822-40-40 07:00:000.98[facility] PARATHYROID CJOTWER9989-54-47 07:00:000.99[facility] HermannURINE AND STOOL 2014-12-12 22:56:00Performed *NA*(12/12/14 5:56 PM)[facility]ann[facility] AND [id number] 22:56:00<1[facility] AND JCWWC4435-89-19 22:56:00 <1[facility]ann[facility] AND XHYVA5178-82-51 22:56:00Negative (12/12/14 5:56 PM)[facility] AND TVHIS1843-86-08 22:56:007.0[facility] AND HTNNO6969-74-41 22:56:00Clear (12/12/14 5:56 PM)[facility] AND OKWZC0882-57-29 22:56:00Yellow *NA*(12/12/14 5:56 PM)[facility] AND RYANQ8833-70-39 22:56:001.006[facility] AND OYAAP7047-73-95 22:56:00 Negative (12/12/14 5:56 PM)[facility] [id number] 22:56:00 Negative *NA*(12/12/14 5:56 PM)[facility] XOGYT5425-36-95 22:56:00 Moderate *ABN*(12/12/14 5:56 PM)[facility] DnastdtBNFCGDYYWI4334-50-43 21:33:00See Note 4(12/12/14 4:33 PM)[facility] UVTBCUJ2857-89-78 16:18:00 Negative (12/12/14 11:18 AM)[facility]annCHEM TBSYK6833-61-73 16:18:001.8 [facility] EvqrptfASWTZPMTQX8903-48-22 16:18:00 Test Item Value Reference Range Interpretation Comments Angle (test code = Angle) 76 degrees 64-80 [facility] VtaboqrZAFVSSBDXN5097-56-59 16:18:00 Test Item Value Reference Range Interpretation Comments K-time (test code = K-time) 1.5 min 0.6-2.3 [facility] HospitalVsinkzeBFIPVLHSGT9383-24-52 16:18:00 Test Item Value Reference Range Interpretation Comments R-time (test code = R-time) 0.6 min 0.4-0.7 [facility] GcuahspVCOMEBKZFK2825-52-83 16:18:00 Test Item Value Reference Range Interpretation Comments ACT (TEG) (test code = ACT (TEG)) 105 s 86-118 [facility] HospitalStraywgALPCFEKINM6604-66-75 16:18:00Citrated Whole Blood (12/12/14 11:18 AM)[facility] HospitalQoumswzZMGSKKOZWB6192-83-98 16:18:00 Test Item Value Reference Range Interpretation Comments Split Point (test code = Split Point) 0.5 min [facility] WfcifmcAZPPLTVLNO1029-13-07 16:18:000.0[facility] HermannHEMATOLOGY 2014-12-12 16:18:00 Test Item Value Reference Range Interpretation Comments Max Amp (test code = Max Amp) 69 mm 52-71 [facility] WaisuopWIXTWVZVBF4788-72-04 16:18:0011.3[facility] HermannHEMATOLOGY 2014-12-12 16:18:000.1[facility] XhnsfksVVSFTHRGOI4027-61-51 16:18:000.2[facility] QwocdayWQGQOGIPYR9244-42-14 16:18:00Normal (12/12/14 11:18 AM)[facility] BLOOD BANK [id number] 16:09:00Product available (12/12/14 11:09 AM) [facility]CHE[facility] [id number] 16:00:000.6[facility]
--- NOTE | 2020-08-20 13:19 | RAD REPORT ---
EXAM DESCRIPTION: CT - Head C Spine Mpr Wo Con - 08/20/2020 1:06 pm CLINICAL HISTORY: Head and pain COMPARISON: Not available TECHNIQUE: Computed axial tomography of the head and cervical spine was obtained. Sagittal and coronal reconstruction was performed. All CT scans are performed using dose optimization technique as appropriate and may include automated exposure control or mA/KV adjustment according to patient size. FINDINGS: Postsurgical changes involve the left skull. An intracranial bleed is not seen. Mild low-density areas within periventricular, and subcortical whi te matter likely ischemic changes secondary to mild small vessel disease. The ventricles are normal in caliber. An extra-axial fluid collection is not noted.Fluid within the v isualized sinuses and mastoids is not seen A cervical fracture is not visualized. No dislocation is noted. Small central disc herniation C2-3. Small left posterolateral disc C3-4 herniation. This in combination with facet hypertrophy result in moderate narrowing of the left neural foramina. Small central disc herniation C4-5 suspected. Mild spondylosis distal cervical spine. Slight anterior subluxation C3 on C4 and C4 on C5 IMPRESSION: No acute intracranial abnormality is seen. A cervical fracture is not visualized. Small disc herniations as described above. If the patient continues to have symptoms to suggest intracranial /spinal cord/spinal canal pathology then MRI would be recommended
--- NOTE | 2020-08-20 13:27 | RAD REPORT ---
EXAM DESCRIPTION: CTThoracic Spine Wo Cont08/20/2020 1:06 pm CLINICAL HISTORY: Back injury with back pain COMPARISON: None TECHNIQUE: Computed axial tomography of thoracic spine was obtained with coronal and sagittal recons truction. All CT scans are performed using dose optimization technique as appropriate and may include automated exposure control or mA/KV adjustment according to patient size. FINDINGS: Cement has been placed into a marked compression fracture T12 vertebral body. Retropulsion of bone results in approximately 30% narrowing of spinal canal. No acute fracture visualized. No dislocation is seen. No large disc herniation seen. Neural foramina appear patent IMPRESSION: An acute compression fracture is not seen. If the patient has clinical symptoms to suggest spinal cord/spinal canal pathology then MRI would be recommended.
--- NOTE | 2020-08-20 13:31 | RAD REPORT ---
EXAM DESCRIPTION: CTSpine Lumbar Wo Con08/20/2020 1:06 pm CLINICAL HISTORY: Back injury with back pain COMPARISON: 2019 TECHNIQUE: Computed axial tomography lumbar spine was obtained with coronal and sagittal reconstruct ion. All CT scans are performed using dose optimization technique as appropriate and may include automated exposure control or mA/KV adjustment according to patient size. FINDINGS: No fracture is seen involving the lumbar spine. No dislocation. Small right paracentral disc herniation suspected L1-2. Diffuse disc bulge present. Disc bulge, ligamentum flavum and facet hypertrophy L3-4 resulting mild narrowing of the thecal sac. Left facet hypertrophy L4-5 in combination with disc bulge results in marked left foraminal narrowing . Vacuum phenomena, disc space narrowing and osteophytes involve multiple levels. IMPRESSION: Negative for a lumbar fracture. 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 If clinically indicated further evaluat ion with MRI could be obtained
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
--- NOTE | 2020-08-20 13:37 | EDPHYS ---
Physician Documentation [facility] Name: Nishi Ariza Age: 79 yrs Sex: Female : 1940 Arrival Date: 08/20/2020 Time: 09:43 Bed 20 Private MD: Mason Mason ED Physician Rex Sprague HPI: 08/20 12:12 This 79 yrs old Female presents to ER via Ambulatory with complaints of pkl Worried about brain bleed. 12:12 The patient complains of pain to the vertex. The patient describes the headache as a pkl thunder clap. Onset: The symptoms/episode began/occurred this morning. Associated signs and symptoms: Pertinent positives: Neck and back pain. H/O brain bleed. Historical: - Allergies: 10:05 BARBITURATES; ss 10:05 Codeine; ss 10:05 Iodinated Contrast Media - IV Dye; ss - PMHx: 10:05 Colitis; hematoma on brain; ss - PSHx: 10:05 Brain surgery; Cholecystectomy; right wrist surg; Hysterectomy; ss - Immunization history:: Adult Immunizations up to date. - Social history:: Smoking status: Patient denies any tobacco usage or history of. ROS: 12:12 Eyes: Negative for injury, pain, redness, and discharge, ENT: Negative for injury, pkl pain, and discharge. 12:12 Neck: Positive for pain with movement. 12:12 Cardiovascular: Negative for chest pain. 12:12 Respiratory: Negative for cough, shortness of breath. 12:12 Abdomen/GI: Negative for abdominal pain, nausea, vomiting, and diarrhea. 12:12 Back: Positive for pain with movement, of the upper and lower back. 12:12 : Negative for urinary symptoms. 12:12 MS/extremity: Negative for acute changes. 12:12 Skin: Negative for rash. 12:12 Neuro: Positive for headache, Negative for loss of consciousness. Exam: 12:12 Head/Face: Normocephalic, atraumatic. Eyes: Pupils equal round and reactive to light, pkl extra-ocular motions intact. Lids and lashes normal. Conjunctiva and sclera are non-icteric and not injected. Cornea within normal limits. Periorbital areas with no swelling, redness, or edema. ENT: Nares patent. No nasal discharge, no septal abnormalities noted. Tympanic membranes are normal and external auditory canals are clear. Oropharynx with no redness, swelling, or masses, exudates, or evidence of obstruction, uvula midline. Mucous membranes moist. 12:12 Neck: ROM/movement: pain, that is mild, with any movement. 12:12 Chest/axilla: Exam negative for acute changes. 12:12 Cardiovascular: Rate: normal, Rhythm: regular. 12:12 Respiratory: the patient does not display signs of respiratory distress, Respirations: normal, Breath sounds: are clear throughout. 12:12 Abdomen/GI: Bowel sounds: normal, Palpation: abdomen is soft and non-tender, in all quadrants. 12:12 Back: Exam negative for acute changes. 12:12 : Exam negative for acute changes. 12:12 Musculoskeletal/extremity: Exam is negative for acute changes. 12:12 Skin: Exam negative for rash. 12:12 Neuro: Orientation: is normal, Mentation: is normal, Cranial nerves: grossly normal, Motor: is normal. Vital Signs: 09:51 BP 151 / 91; Pulse 70; Resp 18; Temp 98.7(TE); Pulse Ox 99% on R/A; Weight 63.5 kg; ss Height 4 ft. 11 in. (149.86 cm); Pain 0/10; 13:53 BP 146 / 73; Pulse 68; Resp 16; Pulse Ox 98% ; kg 09:51 Body Mass Index 28.28 (63.50 kg, 149.86 cm) ss MDM: 11:53 Patient medically screened. pkl 13:34 Data reviewed: vital signs, nurses notes, radiologic studies, CT scan. ED course: pkl Discussed CT Scans results with patient. Advised to follow up with PCP in 2 to 3 days. Patient understood instructions. 08/20 12:20 Order name: CT Lumbar Spine Wo Con; Complete Time: 13:33 pkl 08/20 12:25 Order name: Head C Spine Mpr Wo Con; Complete Time: 13:20 EDMS 08/20 12:26 Order name: Thoracic Spine Wo Cont; Complete Time: 13:33 EDMS Administered Medications: No medications were administered Disposition: 08/20/20 13:36 Discharged to Home. Impression: Acute headache. Degenerative arthritis back. - Condition is Stable. - Medication Reconciliation Form, Thank You Letter, Antibiotic Education, Prescription Opioid Use form. - Follow up: Mason Mason DO; When: 2 - 3 days; Reason: Re-evaluation by your physician. - Problem is new. - Symptoms have improved. Signatures: Dispatcher [employer] EDMS Rex Sprague MD MD pkSunshine Sweeney, RN RN ss Marilyn Pearlta kg Corrections: (The following items were deleted from the chart) 12:24 12:09 C Spine Wo Con ordered. EDMS EDMS 12:25 11:55 Head Brain Wo Cont+CT.RAD.BRZ ordered. EDMS EDMS 12:26 12:09 CT-THORACIC SPINE W/O CONTRAST ordered. EDCO EDMS 13:55 13:36 08/20/2020 13:36 Discharged to Home. Impression: Acute headache. Degenerative kg arthritis back. Condition is Stable. Forms are Medication Reconciliation Form, Thank You Letter, Antibiotic Education, Prescription Opioid Use. Follow up: Mason Mason; When: 2 - 3 days; Reason: Re-evaluation by your physician. Problem is new. Symptoms have improved. pkl
[2020-08-20 14:10] VITALS: BP 146/73; O2SAT 98
[2020-08-20 14:12] VITALS: TEMP 98.7
== END 2020-08-20 13:55 | disposition home or self-care (01) ==
LOC: ER 09:38
DX: M19.09 Primary osteoarthritis, other specified site (principal); Z88.5 Allergy status to narcotic agent; Z91.041 Radiographic dye allergy status
CPT/HCPCS: 70450; 72125; 72131; 99283

== ENCOUNTER → 2023-05-30 | Emergency (ER) | payer OTHER ==
[~2023-05-30] MED LIST: MORPHINE 4 MG/ML SYR ONE; ONDANSETRON 4 MG/2 ML VIAL ONE
--- OUTSIDE RECORDS SUMMARY | 2023-05-30 19:17 | XMS REPORT | Clinical Summary ---
Author Name Unknown Organization [facility] Address [address] [place] [address] Care Team Providers Care Linotype Worker Name Role Phone GarciaMerced Unavailable Unavailable Dominguez Winn MD Primary Care Provider [phone] Allergies Active Allergy Reactions Criticality Noted Date Comments Amoxicillin-Pot Clavulanate GI Intolerance 09/30/2011 Barbiturates Rash,Other (See Comments),Itching Low 12/06/2016 Codeine GI Intolerance,Other (See Comments) 12/29/2018 Iodinated Contrast Media Hives,Swelling,Rash Low 04/25/2020 12/12/2020: per patient she turned" beet red" in 2014 and since then has had no IV contrast- today is no IV contrast. Medications Medication Sig Dispensed Refills Start Date End Date Status amitriptyline (ELAVIL) 25 mg tablet Take 25 mg by mouth at bedtime. 0 Active amoxicillin-clavulanat e (AUGMENTIN) 200-28.5 mg per chewable tablet Chew 1 tablet twice daily. 0 Active Active Problems Problem Noted Date Diagnosed Date Collapsed vertebra, not elsewhere classified, allen mbar region 09/08/2020 Neoplasm related pain (acute) (chronic) 09/09/19 21 Anemia due to antineoplastic chemotherapy 2020 Malignant lymphoma - small lymphocytic 0 Immunizations Name Administration Dates Next Due Tdap 08/27/2017 Surgical History Surgery Date Site/Laterality Comments BACK SURGERY 03/20/2020 CHOLECYSTECTOMY 04/28/1990 - 04/27/1991 HYSTERECTOMY 04/28/1970 - 04/27/1971 BLADDER INSTILLATION OF ANTICARCINOGENIC AGENT 04/28/2001 - 04/27/2002 ELBOW FRACTURE SURGERY 04/28/2017 - 04/27/2018 Left WRIST SURGERY 04/28/2016 - 04/27/2017 FX of wrist Medical History Medical History Date Comments Traumatic brain injury Brain Bleed Diverticulitis Gallstone History of recurrent urinary tract infection Arthritis Family History Medical History Relation Name Comments Bladder Cancer Brother 1 Brandon Boyd Colon cancer Brother 1 Brandon Boyd Colon cancer Brother 2 Bladder Cancer Father Relation Name Status Comments Brother 1 Brandon Boyd Brother 2 Father Social History Tobacco Use Types Packs/Day Years Used Date Smoking Tobacco: Never Smokeless Tobacco: Never Alcohol Use Standard Drinks/Week Comments Not Currently 0 (1 standard drink = 0.6 oz pur e alcohol) Sex and Gender Information Value Date Recorded Sex Assigned at Female 04/04/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[employer] Gender Identity Not on file Sexual Orientation Not on file Job Start Date Occupation Industry Not on file Not on file Not on file Obstetrics History Plan of Treatment Health Maintenance Due Date Last Done Comments COVID-19 Vaccination (#1) 06/20/1941 Medical Devices Implanted Type Area Display Decorator Device Identifier Shelf Expiration Date Model / Serial / Lot Metal Plates /Screws Description:bilat elbow plat es/screws Care Teams Linotype Worker Relationship Specialty Start Date End Date [place] [address] [place] [address] PCP - External Follow Up A 04/03/20 Dominguez Winn MD [address], [place] [id number] PCP - General Lymphoma and Myeloma 04/12/20
--- NOTE | 2023-05-30 20:49 | RAD REPORT ---
EXAM DESCRIPTION: RAD - Humerus Right - 05/30/2023 8:26 pm CLINICAL HISTORY: Right arm pain status post fall FINDINGS: Sideplate and screws affix an old ulnar fracture. Radial head and neck and been resected. Prosthesis is in place. Comminuted avulsion fracture medial humeral condyle for with marked displacement. Probable olecranon fracture Elbow dislocation
--- NOTE | 2023-05-30 20:50 | RAD REPORT ---
EXAM DESCRIPTION: RAD - Elbow Right 3 View - 05/30/2023 8:26 pm CLINICAL HISTORY: Right elbow pain status post injury FINDINGS: Sideplate and screws affix an old ulnar fracture. Radial head and neck and been resected. Prosthesis is in place. Comminuted avulsion fracture medial humeral condyle for with marked displacement. Probable olecranon fracture Elbow dislocation
--- NOTE | 2023-05-30 20:50 | RAD REPORT ---
EXAM DESCRIPTION: RAD - Knee Right 3 View - 05/30/2023 8:26 pm CLINICAL HISTORY: Right knee pain status post injury FINDINGS: No fracture or dislocation is seen.
--- NOTE | 2023-05-30 20:51 | RAD REPORT ---
EXAM DESCRIPTION: RAD - Hip Right 2 View - 05/30/2023 8:26 pm CLINICAL HISTORY: Right hip pain FINDINGS: A lucency right superior pubic ramus equivocal for a nondisplaced fracture Osteoporosis. No dislocation
--- NOTE | 2023-05-30 20:56 | ER ---
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 19:16 Method Of Arrival: EMS km8 19:16 Coronavirus screen: Client denies travel out of the [place] in the last 14 days. Ebola km8 Screen: No symptoms or risks identified at this time. Initial Sepsis Screen: Does the patient meet any 2 criteria? No. Patient's initial sepsis screen is negative. Does the patient have a suspected source of infection? No. Patient's initial sepsis screen is negative. Risk Assessment: Do you want to hurt yourself or someone else? Patient reports no desire to harm self or others. Onset of symptoms was May 30, 2023 at 18:15. 19:16 Acuity: OMAR 3 km8 19:16 Care prior to arrival: IV initiated. 20 GA, in the left forearm. km8 Triage Assessment: 19:16 General: Appears in no apparent distress. comfortable, Behavior is calm, cooperative, km8 appropriate for age. Pain: Complains of pain in right elbow and right knee Pain currently is 6 out of 10 on a pain scale. EENT: No signs and/or symptoms were reported regarding the EENT system. Neuro: Level of Consciousness is awake, alert, obeys commands, Oriented to person, place, time, situation. Cardiovascular: Denies chest pain, shortness of breath, Capillary refill < 3 seconds Patient's skin is warm and dry. Respiratory: Airway is patent Respiratory effort is even, unlabored, Respiratory pattern is regular, symmetrical. GI: No signs and/or symptoms were reported involving the gastrointestinal system. : No signs and/or symptoms were reported regarding the genitourinary system. Derm: Skin is intact, Skin is dry, Skin is normal, Skin temperature is warm swelling and bruising to right elbow. Musculoskeletal: Circulation, motion, and sensation intact. Range of motion: limited in right elbow Swelling present in right elbow. Historical: - Allergies: 19:16 BARBITURATES; 8 19:16 Codeine; 8 19:16 Iodinated Contrast Media - IV Dye; km8 - PMHx: 19:16 Colitis; hematoma on brain; 8 - PSHx: 19:16 Total abdominal hysterectomy; Cholecystectomy; brain surgery; bilateral elbows; km8 - Immunization history:: Client reports having NOT received the Covid vaccine. Flu vaccine is not up to date. - Social history:: Smoking status: Patient denies any tobacco usage or history of. Patient/guardian denies using alcohol, street drugs. Screenin:16 [facility] ED Fall Risk Assessment (Adult) History of falling in the last 3 months, km8 including since admission Yes- fall prone (multiple falls) (3 pts) Confusion or Disorientation No (0 pts) Intoxicated or Sedated No (0 pts) Impaired Gait Yes (1 pt) Mobility Assist Device Used No (0 pt) Altered Elimination No (0 pt) Score/Fall Risk Level 3 or more points = High Risk Oriented to surroundings, Maintained a safe environment, Educated pt \T\ family on fall prevention, incl call for assistance when getting out of bed, Assessed \T\ reinforced patient's understanding of fall precautions, Provided non-skid footwear, Hourly rounding (assess needs \T\ fall precautionary measures) done, Implemented a Fall Risk Plan of Care, Remained w/in arm's length of patient and in sight while toileting, Offered frequent toileting (1:1 observation), Remained with patient while ambulating, Utilized family, sitter, or virtual diesel fitter mechanic as indicated. Abuse screen: Denies threats or abuse. Denies injuries from another. Nutritional screening: No deficits noted. Tuberculosis screening: No symptoms or risk factors identified. Assessment: 19:16 General: see triage assessment/notes. km8 20:17 Reassessment: Patient appears in no apparent distress at this time. No changes from km8 previously documented assessment. Patient and/or family updated on plan of care and expected duration. Pain level reassessed. Patient is alert, oriented x 3, equal unlabored respirations, skin warm/dry/pink. 22:00 Reassessment: Patient appears in no apparent distress at this time. No changes from km8 previously documented assessment. Patient and/or family updated on plan of care and expected duration. Pain level reassessed. Patient is alert, oriented x 3, equal unlabored respirations, skin warm/dry/pink. 23:00 Reassessment: Patient appears in no apparent distress at this time. No changes from km8 previously documented assessment. Patient and/or family updated on plan of care and expected duration. Pain level reassessed. Patient is alert, oriented x 3, equal unlabored respirations, skin warm/dry/pink. 23:26 Reassessment: pure wick placed on pt. km8 23:35 Reassessment: nurse to nurse report given to CHRISTINA Jaffe from [facility]. km8 Vital Signs: 19:16 BP 155 / 68; Pulse 88; Resp 16; Temp 98(IR); Pulse Ox 94% on R/A; Weight 64.86 kg (R); km8 Height 4 ft. 11 in. (R); 20:00 BP 150 / 82; Pulse 74; Resp 16; Pulse Ox 97% on R/A; km8 21:00 BP 140 / 72; Pulse 85; Resp 18; Pulse Ox 96% on R/A; km8 22:00 BP 130 / 62; Pulse 91; Resp 16; Pulse Ox 92% on R/A; km8 23:00 BP 123 / 65; Pulse 99; Resp 16; Pulse Ox 98% on R/A; km8 23:58 BP 137 / 78; Pulse 86; Resp 17; Temp 98; Pulse Ox 99% ; rv 19:16 Body Mass Index 28.88 (64.86 kg, 149.86 cm) km8 Sg Coma Score: 19:16 Eye Response: spontaneous(4). Motor Response: obeys commands(6). Verbal Response: km8 oriented(5). Total: 15. 23:58 Eye Response: spontaneous(4). Motor Response: obeys commands(6). Verbal Response: rv oriented(5). Total: 15. ED Course: 19:16 Patient arrived in ED. jb4 19:16 Arm band placed on right wrist. km8 19:16 Patient has correct armband on for positive identification. Bed in low position. Call km8 light in reach. Side rails up X2. Pulse ox on. NIBP on. Door closed. Warm blanket given. Pillow given. 19:16 No provider procedures requiring assistance completed. Maintain EMS IV. Dressing km8 intact. Good blood return noted. Site clean \T\ dry. Gauge \T\ site: 20 gauge left forearm. Patient maintains SpO2 saturation greater than 95% on room air. 19:17 Elke Teresa PA-C is [facility]. sb4 19:17 Fabian Hutchins DO is Attending Physician. sb4 19:34 Triage completed. km8 20:18 Nimesh Urban, CHRISTINA is Primary Nurse. rv 20:27 Humerus Right XRAY In Process Unspecified. EDMS 20:27 Elbow Right 3 View XRAY In Process Unspecified. EDMS 20:28 Hip Right 2 View XRAY In Process Unspecified. EDMS 20:28 Knee Right 3 View XRAY In Process Unspecified. EDMS 20:37 Head Brain Wo Cont CT In Process Unspecified. EDMS 21:17 Initiated transfer with [facility] to [facility] and spoke with ty 22:22 Called [facility] for transfer update spoke with Jessica waiting for Doctor to ty contact call center back for update. 23:04 Called [facility] for update and spoke with Jessica who advised of difficulty ty contacting Ortho and will attempt another method in contacting Trauma. 23:59 Patient transferred, IV remains in place. rv Administered Medications: 19:26 Drug: morphine IVP or IV 4 mg IVP once over 4 mins Route: IVP; Infused Over: 4 mins; km8 Site: left forearm; 21:42 Follow up: Response: No adverse reaction rv 19:26 Drug: Ondansetron IVP 4 mg IVP once; over 2 minutes Route: IVP; Site: left forearm; km8 21:42 Follow up: Response: No adverse reaction rv 23:57 Drug: morphine IVP or IV 4 mg IVP once over 4 mins Route: IVP; Infused Over: 4 mins; rv Site: left forearm; 23:58 Follow up: Response: Medication administered at discharge. rv Medication: 19:16 VIS not applicable for this client. km8 Outcome: 20:55 ER care complete, transfer ordered by . sb4 23:59 Transferred by ground EMS to [facility], Transfer form completed. X-rays sent rv w/ patient. 23:59 Condition: good 23:59 Instructed on the need for transfer, 23:59 Patient left the ED. rv Signatures: Dispatcher [employer] EDZion Denis, RN RN jb4 Nimesh Urban RN RN Elke Quezada, PA-C PA-C sb4 Floridalma Chahal RN RN km8 Jimmy Dwyer Corrections: (The following items were deleted from the chart) 19:26 19:26 morphine IVP or IV 4 mg IVP in left femoral over 4 mins km8 km8
--- NOTE | 2023-05-30 20:56 | EDPHYS ---
Physician Documentation [facility] Name: Nishi Ariza Age: 82 yrs Sex: Female : 1940 Arrival Date: 05/30/2023 Time: 19:15 Bed 7 Private MD: ED Physician Fabian Hutchins HPI: 05/30 19:49 This 82 yrs old Female presents to ER via EMS with complaints of fall injury. sb4 19:49 Details of fall: The patient fell from an upright position, while walking. Onset: The sb4 symptoms/episode began/occurred just prior to arrival. Associated injuries: The patient sustained injury to the head, hematoma, swelling, right arm, deformity, obvious fracture, painful injury, right hip, painful injury, right knee, painful injury. 19:51 patient states that she had sacral surgery recently and has been using a walker to sb4 ambulate. today was the first day ambulating without it, causing her to fall onto her right side. complains of pain to her right elbow with obvious deformity (has had prior surgery), right hip pain, right knee pain, and hematoma noted to scalp. no loc or blood thinners. Historical: - Allergies: 19:16 BARBITURATES; km8 19:16 Codeine; km8 19:16 Iodinated Contrast Media - IV Dye; km8 - PMHx: 19:16 Colitis; hematoma on brain; km8 - PSHx: 19:16 Total abdominal hysterectomy; Cholecystectomy; brain surgery; bilateral elbows; km8 - Immunization history:: Client reports having NOT received the Covid vaccine. Flu vaccine is not up to date. - Social history:: Smoking status: Patient denies any tobacco usage or history of. Patient/guardian denies using alcohol, street drugs. ROS: 19:51 Constitutional: Negative for fever, chills, and weight loss, sb4 19:51 MS/extremity: Positive for see HPI, MS/extremity: Positive for see HPI, Exam: 19:58 Constitutional: This is a well developed, well nourished patient who is awake, alert, sb4 and in no acute distress. 19:58 Eyes: Extra-ocular motions intact. Periorbital areas with no swelling, redness, or edema. ENT: Mucous membranes moist. Cardiovascular: Regular rate and rhythm with a normal S1 and S2. Respiratory: Lungs have equal breath sounds bilaterally, clear to auscultation and percussion. No rales, rhonchi or wheezes noted. No increased work of breathing, no retractions or nasal flaring. Abdomen/GI: Soft, non-tender, no distension. Neuro: Awake and alert, GCS 15, oriented to person, place, time, and situation. Motor strength 5/5 in all extremities. Sensory grossly intact. 19:58 Head/face: Noted is hematoma, of the right side of the back of head, 19:58 Musculoskeletal/extremity: Extremities: noted in the right elbow: decreased ROM, puncture, swelling, tenderness, deformity, pain, noted in the right hip: pain, tenderness, noted in the right knee: pain, swelling, tenderness, Vital Signs: 19:16 BP 155 / 68; Pulse 88; Resp 16; Temp 98(IR); Pulse Ox 94% on R/A; Weight 64.86 kg (R); km8 Height 4 ft. 11 in. (R); 20:00 BP 150 / 82; Pulse 74; Resp 16; Pulse Ox 97% on R/A; km8 21:00 BP 140 / 72; Pulse 85; Resp 18; Pulse Ox 96% on R/A; km8 22:00 BP 130 / 62; Pulse 91; Resp 16; Pulse Ox 92% on R/A; km8 23:00 BP 123 / 65; Pulse 99; Resp 16; Pulse Ox 98% on R/A; km8 23:58 BP 137 / 78; Pulse 86; Resp 17; Temp 98; Pulse Ox 99% ; rv 19:16 Body Mass Index 28.88 (64.86 kg, 149.86 cm) km8 [place] Coma Score: 19:16 Eye Response: spontaneous(4). Motor Response: obeys commands(6). Verbal Response: km8 oriented(5). Total: 15. 23:58 Eye Response: spontaneous(4). Motor Response: obeys commands(6). Verbal Response: rv oriented(5). Total: 15. MDM: 19:17 Patient medically screened. sb4 19:58 Differential diagnosis: closed head injury, contusion, fracture, sprain, strain. sb4 20:53 Data reviewed: vital signs, nurses notes, radiologic studies, and as a result, I will. sb4 Counseling: I had a detailed discussion with the patient and/or guardian regarding the historical points, exam findings, and any diagnostic results supporting the discharge/admit diagnosis, radiology results, the need to transfer to another facility, for higher level of care, [facility] does not immediately have the required specialist. 22:56 ED course: patient has prothesis in place on right ulna from prior surgery at [address] will transfer for trauma and continuity of care. 05/30 19:18 Order name: Humerus Right XRAY; Complete Time: 20:50 sb4 05/30 19:18 Order name: Elbow Right 3 View XRAY; Complete Time: 20:52 sb4 05/30 19:18 Order name: Hip Right 2 View XRAY; Complete Time: 20:52 sb4 05/30 19:18 Order name: Knee Right 3 View XRAY; Complete Time: 20:52 sb4 05/30 19:18 Order name: Head Brain Wo Cont CT; Complete Time: 21:04 sb4 Administered Medications: 19:26 Drug: morphine IVP or IV 4 mg IVP once over 4 mins Route: IVP; Infused Over: 4 mins; km8 Site: left forearm; 21:42 Follow up: Response: No adverse reaction rv 19:26 Drug: Ondansetron IVP 4 mg IVP once; over 2 minutes Route: IVP; Site: left forearm; km8 21:42 Follow up: Response: No adverse reaction rv 23:57 Drug: morphine IVP or IV 4 mg IVP once over 4 mins Route: IVP; Infused Over: 4 mins; rv Site: left forearm; 23:58 Follow up: Response: Medication administered at discharge. rv Disposition: 20:36 I was immediately available on-site in the Emergency Department for consultation in the ms3 care of the patient. Disposition Summary: 05/30/23 20:55 Transfer Ordered Notes: Transfer Location: [facility] Reason: Higher level of care sb4 Condition: Fair sb4 Problem: new sb4 Symptoms: are unchanged sb4 Accepting Physician: aysha(05/30/23 23:59) rv Diagnosis - comminuted avulsion fracture of right humeral medial condyle with probable sb4 olecranon fracture and elbow dislocation - nondisplaced right superior pubic ramus fracture sb4 Forms: - Medication Reconciliation Form sb4 - SBAR form sb4 Signatures: Dispatcher [employer] Nimesh Brunson RN RN rv Fabian Hutchins, DO ms3 Elke Teresa PA-C PA-C sb4 Floridalma Chahal RN RN km8 Corrections: (The following items were deleted from the chart) 20:57 20:55 ortho sb4 sb4 23:59 20:57 ortho sb4 rv
--- NOTE | 2023-05-30 20:57 | RAD REPORT ---
EXAM DESCRIPTION: CT - Head Brain Wo Cont - 05/30/2023 8:36 pm CLINICAL HISTORY: Head injury status post fall COMPARISON: 2016 TECHNIQUE: Computed axial tomography of the head was obtained. IV contrast was not requested. All CT scans are performed using dose optimization technique as appropriate and may include automated exposure control or mA/KV adjustment according to patient size. FINDINGS: An intracranial bleed is not seen. Left craniotomy. Right scalp swelling. All The ventricles are normal in caliber No extra-axial fluid collection is noted. No significant hypodensity within the brain. Fluid within the sinuses/ mastoids is not seen. IMPRESSION: No acute intracranial abnormality is seen If patient's symptoms persist MRI of the brain would be recommended
[2023-05-31 00:29] VITALS: TEMP 98
[2023-05-31 00:57] VITALS: BP 137/78; O2SAT 99
== END ==
LOC: ER 19:15
DX: S42.461A Displaced fracture of medial condyle of right humerus, initial encounter for closed fracture (principal); S32.511A Fracture of superior rim of right pubis, initial encounter for closed fracture; S00.03XA Contusion of scalp, initial encounter; Z88.5 Allergy status to narcotic agent; Z91.041 Radiographic dye allergy status; Z28.310 Unvaccinated for COVID-19
CPT/HCPCS: 70450; 73502; 73080; 73060; 73562; J2405